=== PATIENT | female | born 1970 | race Caucasian/White ===

== ENCOUNTER 2017-01-15 07:34 | Emergency (ER) | payer BC, OTHER ==
[2017-01-15] MEDS ORDERED: Aspirin Low Dose CHEW TAB* 81 MG PO ONE (07:47)
[2017-01-15 07:49] VITALS: BP 151/97
--- NOTE | 2017-01-15 07:59 | UC ---
Remi Holley Benjamin, scribed for Ernesto Fields MD on 01/15/17 at 0753 . Cardiac HPI - HPI Summary HPI Summary: 46yo female c/o pain in left elbow that radiates down her arm, hand, as well as sandip in left chest and left shoulder blade. Rates the discomfort as 8 out of 10 , and the pt describes tingling sensation in her arm and feeling jittery. Pt felt dizzy and like passing out to drive all the way to the ED, so came to instead. - History of Current Complaint Chief Complaint: UCChestPain Stated Complaint: L ARM TINGLING, CHEST PAIN Time Seen by Provider: 01/15/17 07:41 Hx Obtained From: Patient Onset/Duration: Sudden Onset, Lasting Hours, Still Present Timing: Constant Initial Severity: Moderate Current Severity: Moderate Pain Intensity: 8 Chest Pain Location: Upper Sternal Character: Dull/Aching - left arm, Pressure/Squeezing - upper chest Aggravating: Nothing Alleviating: Nothing Associated Signs & Symptoms: Positive: Tingling - Leftarm, Dizziness, Syncope - Allergy/Home Medications Allergies/Adverse Reactions: Allergies Allergy/AdvReac Type Severity Reaction Status Date / Time Penicillins Allergy Itching Verified 01/15/17 07:49 PMH/Surg Hx/FS Hx/Imm Hx Endocrine History Of: Denies: Diabetes, Thyroid Disease Cardiovascular History Of: Denies: Cardiac Disorders, Hypertension, Pacemaker/ICD Respiratory History Of: Reports: Asthma Denies: COPD GI/ History Of: Denies: Ulcer Cancer History Of: Denies: Breast Cancer - Surgical History Surgical History: Yes Surgery Procedure, Year, and Place: [facility]. APPENDIX. venoplasty in the lower legs - Family History Known Family History: Positive: Cardiac Disease, Diabetes - Social History Alcohol Use: Daily Alcohol Amount: wine Substance Use Type: None Smoking Status (MU): Former Smoker Review of Systems Constitutional: Negative Skin: Negative Eyes: Negative ENT: Negative Respiratory: Negative Cardiovascular: Chest Pain Gastrointestinal: Negative Genitourinary: Negative Motor: Negative Neurovascular: Other - tingling in left arm Musculoskeletal: Negative Neurological: Negative Psychological: Negative All Other Systems Reviewed And Are Negative: Yes Physical Exam Triage Information Reviewed: Yes Appearance: Well-Appearing, No Pain Distress, Well-Nourished Vital Signs: Initial Vital Signs Temp 98.1 F 01/15/17 07:44 Pulse 93 05/04/17 07:44 Resp 18 01/15/17 07:44 BP 151/97 01/15/17 07:44 Pulse Ox 100 01/15/17 07:44 ENT: Positive: Normal ENT inspection Respiratory: Positive: Chest non-tender, Lungs clear, Normal breath sounds Cardiovascular: Positive: RRR, No Murmur Abdomen Description: Positive: Nontender Musculoskeletal: Positive: ROM Intact, No Edema Neurological: Positive: Alert Psychological Exam: Normal Psychological: Positive: Age Appropriate Behavior Skin Exam: Normal Diagnostics - EKG Cardiac Rate: NL ST Segment: Normal - no STEMI - Assessment/Plan Course Of Treatment: 46 yr old female with CP, dizziness. She will go to [facility] as she requests. Dr Duncan given report [facility] - Differential Diagnoses - Chest Pain Differential Diagnosis/HQI/PQRI: ACS - Clinical Impression Provider Diagnoses: Chest pain - Physician Notifications Discussed Patient Care With: Dr Duncan Time Discussed With Above Provider: 07:50 Discharge - Discharge Plan Condition: Good Disposition: TRANS HIGHER LVL OF CARE FAC The documentation as recorded by the Remi luis Benjamin accurately reflects the service I personally performed and the decisions made by Diamond garcia Walter, MD.
[2017-01-15] MEDS ORDERED: fentaNYL* 50 MCG/ML 2 ML VIAL (100 MCG VIAL) ONE (08:31)
[2017-01-15] MEDS ORDERED: nitroGLYCERIN DRIP* 250 ML ONE (08:32)
[2017-01-15] MEDS ORDERED: VERAPAMIL 2.5 MG/ML 4 ML VIAL ONE (08:32)
[2017-01-15] MEDS ORDERED: Heparin 2 UNITS/ML IVPREMIX* 2,000 ML IV ONE (08:32)
[2017-01-15] MEDS ORDERED: Iohexol 350 (CONTRAST) 200 ML MDV IV ONE (08:32)
[2017-01-15] MEDS ORDERED: Lidocaine 1% INJ* 10 MG/ML 30 ML SDV ONE (08:32)
[2017-01-15] MEDS ORDERED: Heparin(*) 1000 UNIT/ML 10 ML VIAL CATH LAB IV ONE (08:32)
[2017-01-15] MEDS ORDERED: Midazolam* 1 MG/ML 5 ML VIAL (5 MG) ONE (08:32)
[2017-01-15] MEDS ORDERED: Ticagrelor* 90 MG TAB PO ONE (09:13)
== END 2017-01-15 08:15 | disposition short-term general hospital (02) ==
LOC: UCEAST 07:34
DX: R07.89 Other chest pain (principal); R42 Dizziness and giddiness; M25.522 Pain in left elbow; R20.2 Paresthesia of skin; J45.909 Unspecified asthma, uncomplicated; Z88.0 Allergy status to penicillin; Z87.891 Personal history of nicotine dependence
CPT/HCPCS: 93005; 99213; A9270-GY; G0463; J1644; J2001; J2250; J3010

== ENCOUNTER 2017-01-15 08:28 | Inpatient (IN) | payer BC, OTHER ==
[2017-01-15] MEDS ORDERED: Metoprolol Tartrate TAB* 25 MG PO ONE (08:36)
[2017-01-15 08:43] LABS: Hematocrit 41 % (35-47); Hemoglobin 13.7 g/dl (12.0-16.0); Mean Corpuscular HGB Conc 33 g/dl (31-36); Mean Corpuscular Hemoglobin 30 pg (27-31); Mean Corpuscular Volume 90 fL (80-97); Mean Platelet Volume 8 um3 (7.4-10.4); Red Blood Count 4.56 10^6/ul (4.0-5.4); Red Cell Distribution Width 13 % (10.5-15); White Blood Count 7.3 10^3/ul (3.5-10.8)
[2017-01-15] MEDS ORDERED: Heparin VIAL(*) 5000 UNITS/ML VIAL (FIVE THOUSAND) IV SCH (09:00)
[2017-01-15 09:01] LABS: Albumin 4.3 g/dL (3.2-5.2); BUN/Creatinine Ratio 16.1 (8-20); Calcium 9.2 mg/dL (8.6-10.3); EGFR African American 89.4 (>60); EGFR Non-African American 69.5 (>60); Globulin 2.5 g/dL (2-4); Potassium 3.4 mmol/L (3.5-5.0); Total Bilirubin 1.1 mg/dL (0.2-1.0); Total Protein 6.8 g/dL (6.4-8.9)
[2017-01-15 09:04] LABS: Troponin I 1.31 ng/mL (<0.04)
[2017-01-15] MEDS ORDERED: Metoprolol Tartrate IV* 1 MG/ML 5 ML VIAL ONE (09:29)
[2017-01-15] MEDS ORDERED: Nitroglycerin TAB 0.4 MG* 0.4 MG TAB SL PRN (09:51)
[2017-01-15] MEDS ORDERED: NS 0.9% 1000 ML* 1,000 ML IV SCH (10:00)
[2017-01-15] MEDS: Metoprolol Tartrate TAB* 25 MG PO SCH ×3 (11:36→22:01)
[2017-01-15 13:45] LABS: HDL Cholesterol 61.9 mg/dL
[2017-01-15] MEDS ORDERED: Potassium Chlor TAB* 20 MEQ TAB.ER PO ONE (14:34)
[2017-01-15] MEDS: Acetaminophen TAB* 325 MG PO PRN (14:42)
--- NOTE | 2017-01-15 16:34 | HP ---
HISTORY AND PHYSICAL: DATE OF ADMISSION: 01/15/17 PRIMARY CARE PHYSICIAN: Dr. Saucedo. HISTORY OF PRESENT ILLNESS: A 46-year-old woman presenting to the ER with acute inferior ST-elevation infarct with symptom onset 0630 hours. She has no previous cardiac history. Three days ago, she had about an hour of the same kind of right arm discomfort at rest, which resolved subsequently. She has a history of a previous right elbow injury. This morning at 0630 hours, the pain recurred and worsened. She called EMS, EKG en route at [address] elevation in V3, V4, V5 with hyperacute T-waves as well as in II, III, and aVF, as well as PVCs. She therefore had apical injury. She has not had heart failure symptoms, palpitations, or syncope. She works out fairly regularly, but does not do a 30-minute aerobic workout at a time. She has no history of hypertension, diabetes, family history of premature coronary disease, or hyperlipidemia. PAST MEDICAL HISTORY: History of asthma. PREHOSPITAL MEDICATIONS: 1. Ventolin inhaler p.r.n. 2. Imitrex. 3. Naprosyn 500 b.i.d. p.r.n. 4. Sarah. 5. Albuterol. ALLERGIES: PENICILLIN. FAMILY HISTORY: Grandmother had heart disease in her 60s, no family history of early premature coronary disease. 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 She is . REVIEW OF SYSTEMS: General: No weight loss. No fevers. She is active. [employer]: No history of TIA or CVA. GI: No peptic ulcer disease or bleeding. Circulatory: No claudication. Remainder of 14-point review all negative. PHYSICAL EXAMINATION She was complaining of moderate arm discomfort, was not in distress. Her presenting BP 151/97, heart rate in the 90s. Her lungs were clear to percussion and auscultation. Neck: JVP and carotids normal. No bruits. HEENT : Normal without xanthelasma, scleral injection, or jaundice. EOMs normal. Cranial nerves grossly intact. Cardiac Exam: [place] and RV not palpable, normal heart sounds, no gallop, no murmur, no rub. Abdomen: Soft, nontender. Normal bowel sounds. No bruit. Aorta not palpable. Femoral pulses 2+. Radial and pedal pulses normal. No cyanosis, clubbing, or edema. Skin: Warm and perfused. Psych: Oriented and appropriate. Neuro: Grossly physiologic. DIAGNOSTIC STUDIES/LAB DATA: EKG as above. CBC normal, potassium low at 3.4, random blood sugar 106, SGOT slightly increased at 47 with normal SGPT and alkaline phosphatase. CPK 641 with 21.6 MB, troponin 1.31. BNP normal at 48. Cholesterol 180, triglycerides 70, LDL 104, HDL 61.9. IMPRESSION: 1. Inferoapical ST elevation infarct. She underwent emergent catheterization. Killip class 1, she has minimal cardiac risk factors. 2. History of asthma. CC: Dr. Saucedo * [id number]/[facility] #: [id number] [facility] SERVIC[facility]ario
[2017-01-15] MEDS: Atorvastatin* 80 MG TAB PO SCH (17:46)
[2017-01-15] MEDS: Ticagrelor* 90 MG TAB PO SCH (22:02)
[2017-01-16] MEDS: Acetaminophen TAB* 325 MG PO PRN ×2 (02:21→09:36)
[2017-01-16] MEDS: Metoprolol Tartrate TAB* 25 MG PO SCH ×2 (04:58→10:25)
[2017-01-16 05:30] LABS: BUN/Creatinine Ratio 13.2 (8-20); Calcium 8.6 mg/dL (8.6-10.3); EGFR African American 84.9 (>60); Potassium 3.5 mmol/L (3.5-5.0)
[2017-01-16] MEDS: Ticagrelor* 90 MG TAB PO SCH ×2 (09:37→21:11)
[2017-01-16] MEDS: Aspirin Low Dose CHEW TAB* 81 MG PO SCH (09:37)
[2017-01-16] MEDS: Atorvastatin* 80 MG TAB PO SCH (17:17)
[2017-01-16] MEDS: Metoprolol Tartrate TAB* 50 mg PO SCH (21:11)
--- NOTE | 2017-01-16 22:30 | CATH ---
CC: Dr. Saucedo; Dr. Quinones STENT REPORT: DATE OF PROCEDURE: PRIMARY: Dr. Saucedo. PROCEDURES: Right radial artery access, bilateral selective coronary cineangiography, left heart ca theterization, left ventriculography, stent placement, RPDA 2.25 x 15 Xience drug-eluting stent post dilated with a 2.25 x 15 noncompliant balloon. HISTORY: A 46-year-old woman without traditional coronary risk factors presenting with acute infraa pical ST elevation infarct. PROCEDURE ACCESS: Right radial artery, sheath 6-F slender. MEDICATIONS: 1. Subcu lidocaine. 2. IV Versed. 3. IV fentanyl. 4. Heparin 3000 units. 5. Verapamil 3 mg. 6. Nitroglycerin 300 mcg. 7. Heparin 3000 units IV. 8. Lopressor 5 mg IV. 9. Brilinta 180 mg p.o. loading dose. 10. Intracoronary nitroglycerin 200 mcg. DIAGNOSTIC CATHETER: 5F TIG4, 5F pigtail. Guiding catheter RCA 6F Ikari right 1, wire 14 BMW used to deploy a 2.25 x 15 Xience drug-eluting st ent mid PDA, 14 atmospheres 30 seconds, post dilated with a 2.25 x 15 noncompliant balloon 20 atmosp heres for 30 seconds. LV gram was then performed. HEMODYNAMICS: Initial BP 138/87, LV 118/5, no aortic valve gradient on pullback. ANGIOGRAPHY: RCA: The RCA is large, has a superior small Allen crook, the RCA is smooth, the PDA is large, the distal third to mid PDA junction has a near total occlusion with apical slow flow. P DA is followed by several small posterolaterals. Left main: The left main is normal, smooth, has no stenosis. LAD: The LAD is moderate, ends before the apex, is somewhat tortuous, supplies small first diagonal , and two small mid diagonals, the LAD has no stenosis. Circumflex: The circumflex is moderate, not dominant, retroflexed at its origin, with moderate reji inal, and ends with a small posterolateral. The circumflex has no stenosis. After RPDA stent placement and postdilatation, there is no residual stenosis, flow is KARRI-3. There is a normal myocardial blush. LV gram: There is localized minor apical hypokinesis, estimated LVEF 60%. CONCLUSION: 1. Single vessel disease RPDA in a young woman without traditional risk factors for coronary artery disease. No other angiographic atherosclerosis. 2. Normal LV systolic function with mild regional wall motion abnormality. 3. Normal left-sided hemodynamics. 4. Successful right radial artery access. [id number]/[facility] #: [id number]
[2017-01-17] MEDS: Aspirin Low Dose CHEW TAB* 81 MG PO SCH (08:35)
[2017-01-17] MEDS: Metoprolol Tartrate TAB* 50 mg PO SCH (08:35)
[2017-01-17] MEDS ORDERED: Prasugrel (NF) 10 MG PO SCH (09:00)
[2017-01-17] MEDS: Acetaminophen TAB* 325 MG PO PRN (09:54)
[2017-01-17 11:41] VITALS: BP 113/84
--- NOTE | 2017-01-18 03:32 | DS ---
CC: Doni Saucedo MD; Mavis Quinones MD DISCHARGE SUMMARY: DATE OF ADMISSION: 01/15/17 DATE OF DISCHARGE: 01/17/17 PRIMARY CARE PHYSICIAN: Doni Saucedo MD DISCHARGE DIAGNOSES: 1. Inferoapical ST elevation infarct. 2. Asthma. CONDITION ON DISCHARGE: Stable. PROCEDURE: Cardiac catheterization, stent placement, RPDA, 01/15/17 right radial access by Dr. Palma ms, 2.25 x 15, MICHOACANO telemetry. FOLLOWUP: With Dr. Quinones next week, with Dr. Saucedo as previously. To discuss with Dr. Saucedo a lternatives to her meds that have potential vasoconstrictor properties. ACTIVITY: No strenuous exertion for 3 days. WOUND CARE: Shower only for 3 days. DISCHARGE MEDICATIONS: 1. Aspirin 81 mg daily. 2. Lipitor 80 mg daily. 3. Lopressor 50 mg b.i.d. 4. Nitroglycerin 0.4 sublingual p.r.n. 5. Effient 10 mg daily. HISTORY: See H and P. LABORATORY DATA: Followup CBC on 01/15/17 remained normal; chemistries on 01/16/17 normal; electrol ytes, creatinine 0.91, random blood sugar 102. Her CPK-MB peaked at 55.1 consistent with a small in farct. BNP was normal at 48. Her CRP was elevated at 3.15 on no statin. Her admission lipids incl uded LDL of 105 with HDL 61, triglycerides 70, and total cholesterol 180. EKG post revascularizatio n 01/17/17 shows inferior and anterior T-wave changes consistent with her apical infarct with very s mall preserved inferior wall, R-wave consistent with a non- transmural infarct. HOSPITAL COURSE: She presented with an acute inferoapical ST elevation infarct, emergent catheteriz ation revealed a culprit PDA high-grade stenosis, which was stented as above. LV function was preethi l with a small apical wall motion abnormality with hypokinesis. Her subsequent hospital course is u ncomplicated without right radial issues, heart failure, chest pain, or arrhythmias. She has ambula michael, she is on dual-antiplatelet therapy, high-dose potent statin, even though admission lipids were fairly unremarkable. She had an infarct even though she lacks to additional risk factors. She is fully ambulatory, clinically stable. She will be followed as an outpatient. [id number]/[facility] #: [id number]
== END 2017-01-17 13:05 | disposition home or self-care (01) | DRG 174 ==
LOC: ED 08:28 → ICU 08:40 → MEDTELE 01-16 15:02
PROVIDERS: ADMIT Internal Medicine Cardiovascular Disease; ATTEND Internal Medicine Cardiovascular Disease
PROC: B2151ZZ Fluoroscopy of Left Heart using Low Osmolar Contrast (ICD-10-PCS; 2017-01-15)
PROC: 4A023N7 Measurement of Cardiac Sampling and Pressure, Left Heart, Percutaneous Approach (ICD-10-PCS; 2017-01-15)
PROC: 027034Z Dilation of Coronary Artery, One Artery with Drug-eluting Intraluminal Device, Percutaneous Approach (ICD-10-PCS; 2017-01-15)
PROC: B2111ZZ Fluoroscopy of Multiple Coronary Arteries using Low Osmolar Contrast (ICD-10-PCS; principal; 2017-01-15 08:30)
DX: I21.19 ST elevation (STEMI) myocardial infarction involving other coronary artery of inferior wall (principal); I25.10 Atherosclerotic heart disease of native coronary artery without angina pectoris; J45.909 Unspecified asthma, uncomplicated; Z88.0 Allergy status to penicillin; Z82.49 Family history of ischemic heart disease and other diseases of the circulatory system; Z79.82 Long term (current) use of aspirin; Z79.01 Long term (current) use of anticoagulants
CPT/HCPCS: 36415; 80048; 80053; 80061; 82550; 82553; 83605; 83721; 83880; 84484; 85025; 85610; 85730; 86141; 87641; 93005; 99213; A9270-GY; C1725; C1769; C1876; C9606-RC; G0463; J1644; J2001; J2250; J3010

== ENCOUNTER → 2017-02-11 11:10 | Emergency (ER) | payer BC, OTHER ==
[~2017-02-11 11:10] MED LIST: Iohexol 350* (CONTRAST) 500 ML MDV IV ONE; Morphine INJ* 2 MG/ML 1 ML SYRINGE IV ONE; Nitroglycerin TAB 0.4 MG* 0.4 MG TAB SL ONE
[2017-02-11 11:45] LABS: Hematocrit 34 % (35-47); Hemoglobin 11.7 g/dl (12.0-16.0); Mean Corpuscular HGB Conc 34 g/dl (31-36); Mean Corpuscular Hemoglobin 31 pg (27-31); Mean Corpuscular Volume 90 fL (80-97); Mean Platelet Volume 9 um3 (7.4-10.4); Red Blood Count 3.77 10^6/ul (4.0-5.4); Red Cell Distribution Width 13 % (10.5-15); White Blood Count 6.9 10^3/ul (3.5-10.8)
[2017-02-11 12:00] LABS: Albumin 3.8 g/dL (3.2-5.2); BUN/Creatinine Ratio 17.9 (8-20); Calcium 8.3 mg/dL (8.6-10.3); EGFR African American 93.1 (>60); EGFR Non-African American 72.4 (>60); Globulin 2.3 g/dL (2-4); Magnesium 1.8 mg/dL (1.9-2.7); Potassium 3.7 mmol/L (3.5-5.0); Total Bilirubin 0.9 mg/dL (0.2-1.0); Total Protein 6.1 g/dL (6.4-8.9)
[2017-02-11 12:02] LABS: Troponin I 0.01 ng/mL (<0.04)
--- NOTE | 2017-02-11 12:09 | RAD ---
HISTORY: Chest pain COMPARISONS: October 22, 2016 VIEWS:1: Single frontal portable view of the chest at 11:55 AM FINDINGS: LINES AND TUBES: None. CARDIOMEDIASTINAL SILHOUETTE: The cardiomediastinal silhouette is normal for portable technique. PLEURA: The costophrenic angles are sharp. No pleural abnormalities are noted. LUNG PARENCHYMA: The lungs are clear. ABDOMEN: The upper abdomen is clear. There is no subphrenic gas. BONES AND SOFT TISSUES: No bone or soft tissue abnormalities are noted. IMPRESSION: NO ACTIVE CARDIOPULMONARY DISEASE.
[2017-02-11 12:28] LABS: T4 7.56 mcg/mL (6.09-12.23)
[2017-02-11 12:29] LABS: TSH (Thyroid Stimulating Horm) 2.27 mcIU/mL (0.34-5.60)
--- NOTE | 2017-02-11 13:01 | RAD ---
INDICATION: Shortness of breath. COMPARISON: Comparison is made with a prior CT angiogram of the chest from May 05, 2013 and a prior chest x-ray study from February 11, 2017. TECHNIQUE: A CT angiogram of the chest was performed with intravenous following intravenous injection of 73 ml of Omnipaque 350 nonionic contrast. Contiguous axial sections were obtained from the lung apices through the lung bases. Images were reconstructed in the coronal and sagittal planes. FINDINGS: There is relatively homogeneous opacification of the pulmonary arteries. No intraluminal filling defect or pulmonary embolism is seen. The heart is within normal limits in size. No pericardial effusion is present. The thoracic aorta is normal in caliber and demonstrates homogeneous contrast opacification. No significant enlarged mediastinal or hilar lymph nodes are seen. There is mild dependent bilateral lower lobe infiltrates most consistent with atelectasis. The lungs are otherwise clear. No pleural effusion is seen. No acute finding is seen on images of the upper abdomen. No significant focal osseous abnormality is seen. IMPRESSION: NO EVIDENCE FOR PULMONARY EMBOLISM.
[2017-02-11 14:04] LABS: C Reactive Protein 2.68 mg/L (< 5.00)
[2017-02-11 16:17] VITALS: BP 119/61
--- NOTE | 2017-02-11 19:03 | ED ---
Jose Raul Holley Billy, scribed for Ernesto Mitchell MD on 02/11/17 at 1138 . HPI Chest Pain - HPI Summary HPI Summary: This patient is a 46 year-old female coming to [facility] for evaluation of a throbbing, aching chest pain on the left anterior and lateral regions of her chest since 09 this morning. The pain radiates to the back. Patient recently had a stent placed for treatment of a STEMI on 01/15/17. Today's symptoms are described to be different in character and less in severity to her pain at that time. She states that over the last week, she has had intermittent tightening in the chest, and has had intermittent shortness of breath and palpitations. She also reports tightening in her calves. Positive nausea without vomiting. She has also been resting and more sedentary than usual. 2x ASA and 2x NTG given by EMS [employer] with improvement. - History of Current Complaint Chief Complaint: EDChestPainROMI Time Seen by Provider: 02/11/17 11:27 Hx Obtained From: Patient Onset/Duration: Started Hours Ago Time of Onset: 09:45 Timing: Intermittent Initial Severity: Moderate Current Severity: Moderate Pain Intensity: 6 Pain Scale Used: 0-10 Numeric Chest Pain Location: Left Anterior, Left Lateral Chest Pain Radiates: Yes Chest Pain Radiates To:: Back Character: Other: - Throbbing, aching Aggravating Factor(s): Nothing Alleviating Factor(s): Nothing Associated Signs and Symptoms: Positive: Chest Pain, Shortness of Breath, Nausea , Palpitations, Calf Pain/Swelling. Negative: Vomiting - Additional Pertinent History Primary Care Physician: [id number] - Allergy/Home Medications Allergies/Adverse Reactions: Allergies Allergy/AdvReac Type Severity Reaction Status Date / Time Penicillins Allergy Itching Verified 01/15/17 07:49 Home Medications: Home Medications Albuterol HFA INHALER* [Ventolin HFA Inhaler*] 1 puff INH Q6H PRN 02/11/17 [ History Confirmed 02/11/17] Ascorbic Acid [Vitamin C/Trinity Hips Tr] 1,000 mg PO DAILY 02/11/17 [History Confirmed 02/11/17] Cholecalciferol [Vitamin D3 Ultra Strength] 5,000 unit PO QPM 02/11/17 [History Confirmed 02/11/17] Cranberry-Vitamin C-Vitamin E [Cranberry Plus Vitamin C] 1 cap PO BID 02/11/17 [ History Confirmed 02/11/17] Fluticasone Furoate-Vilanterol [Breo Ellipta 200-25 Mcg/INH] 1 puff INH DAILY [History Confirmed 02/11/17] Mometasone NASAL (NF) [Nasonex (NF)] 2 spray BOTH NARES QAM 02/11/17 [History Confirmed 02/11/17] Montelukast Sodium TAB* [Singulair TAB*] 10 mg PO QPM 02/11/17 [History Confirmed 02/11/17] Prasugrel (NF) [Effient (NF)] 10 mg PO QAM 02/11/17 [History Confirmed 02/11/17] PMH/Surg Hx/FS Hx/Imm Hx Endocrine/Hematology History: Denies: Hx Diabetes, Hx Thyroid Disease Cardiovascular History: Denies: Hx Hypertension, Hx Pacemaker/ICD Respiratory History: Reports: Hx Asthma, Other Respiratory Problems/Disorders - HX OF PNEUMONIA Denies: Hx Chronic Obstructive Pulmonary Disease (COPD) GI History: Denies: Hx Ulcer Musculoskeletal History: Reports: Hx Back Problems, Other Musculoskeletal History - LEFT ELBOW PAIN Sensory History: Reports: Hx Contacts or Glasses - READERS Denies: Hx Hearing Aid Opthamlomology History: Reports: Hx Contacts or Glasses - READERS Neurological History: Reports: Hx Migraine - SINCE TEENAGER Psychiatric History: Denies: Hx Panic Disorder - Surgical History Surgery Procedure, Year, and Place: LASIK. APPENDIX. venoplasty in the lower legs - Immunization History Date of Tetanus Vaccine: Up to date Date of Influenza Vaccine: Fall 2011 Infectious Disease History: No Infectious Disease History: Denies: Hx Clostridium Difficile, Hx Hepatitis, Hx Human Immunodeficiency Virus (HIV), Hx of Known/Suspected MRSA, Hx Shingles, Hx Tuberculosis, Hx Known/ Suspected VRE, Hx Known/Suspected VRSA, History Other Infectious Disease, Traveled Outside the [place] in Last 30 Days - Family History Known Family History: Positive: Cardiac Disease, Diabetes, Other - breast CA - Social History Alcohol Use: Daily Alcohol Amount: wine Substance Use Type: Reports: None Smoking Status (MU): Former Smoker Have You Smoked in the Last Year: No Review of Systems Positive: Palpitations, Chest Pain Positive: Shortness Of Breath Positive: Nausea. Negative: Vomiting Positive: Myalgia All Other Systems Reviewed And Are Negative: Yes Physical Exam - Summary Physical Exam Summary: VITAL SIGNS: Reviewed. GENERAL: Patient is a well-developed and nourished male who is lying comfortable in the stretcher. Patient is not in any acute respiratory distress. HEAD AND FACE: No signs of trauma. No ecchymosis, hematomas or skull depressions. No sinus tenderness. EYES: PERRLA, EOMI x 2, No injected conjunctiva, no nystagmus. EARS: Hearing grossly intact. Ear canals and tympanic membranes are within normal limits. MOUTH: Oropharynx within normal limits. NECK: Supple, trachea is midline, no adenopathy, no JVD, no carotid bruit, no c- spine tenderness, neck with full ROM. CHEST: Symmetric, no tenderness at palpation LUNGS: Clear to auscultation bilaterally. No wheezing or crackles. CVS: Regular rate and rhythm, S1 and S2 present, no murmurs or gallops appreciated. ABDOMEN: Soft, non-tender. No signs of distention. No rebound no guarding, and no masses palpated. Bowel sounds are normal. EXTREMITIES: FROM in all major joints, no edema, no cyanosis or clubbing. NEURO: Alert and oriented x 3. No acute neurological deficits. Speech is normal and follows commands. SKIN: Dry and warm. Pale. Triage Information Reviewed: Yes Vital Signs On Initial Exam: Initial Vitals Temp Pulse Resp BP Pulse Ox 98.4 F 74 19 120/72 100 02/11/17 11:20 02/11/17 11:20 02/11/17 11:20 02/11/17 11:20 02/11/17 11:20 Vital Signs Reviewed: Yes Diagnostics - Vital Signs Vital Signs Temp Pulse Resp BP Pulse Ox 02/11/17 11:20 98.4 F 74 19 120/72 100 - Laboratory Result Diagrams: 02/11/17 11:30 02/11/17 11:30 Lab Statement: Any lab studies that have been ordered have been reviewed, and results considered in the medical decision making process. - Radiology CXR Xray Interpretation: No Acute Changes Radiology Interpretation Completed By: Radiologist - CT CTA chest CT Interpretation: No Acute Changes CT Interpretation Completed By: Radiologist - EKG 1119 EKG Interpretation: NSR 61 bpm, no STEMI EKG Comparison: No Significant Change - Compared to 01/17/17 Chest Pain Course/Dx - Course Assessment/Plan: This patient is a 46 year-old female coming to [facility] for evaluation of a throbbing, aching chest pain on the left anterior and lateral regions of her chest since 09 this morning. The pain radiates to the back. Patient recently had a stent placed for treatment of a STEMI on 01/15/17. Today's symptoms are described to be different in character and less in severity to her pain at that time. She states that over the last week, she has had intermittent tightening in the chest, and has had intermittent shortness of breath and palpitations. She also reports tightening in her calves. Positive nausea without vomiting. She has also been resting and more sedentary than usual. 2x ASA and 2x NTG given by EMS [employer] with improvement. Test results WNL except for Hgb of 11.7, Hct of 34. Glucose is 101. Troponin is 0.01. Second troponin 4 hours later is 0.01. The patient reports that she recently had a STEMI for which she had a cardiac cath and stent placement. Even though the patient is taking bloodthinners, she reports that she has been having calf pain and now SOB and chest pain. Therefore I am somewhat concerned for PE. The CTA chest shows no PE. The patient was given morphine for pain and these symptoms slightly improved. She reports that the pain is 1/10 at this time. I also discussed the case and EKG findings with Dr. Quinones who did the cardiac cath, and after he reviewed the EKG and the bloodwork, he does not think this is cardiac in etiology. 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 She was instructed to return to the ED if she develops any other chest pain, SOB, nausea, vomiting, or diaphoresis. She understands and agrees. She is hemodynamically stable, A&Ox3. - Diagnoses Provider Diagnoses: Atypical chest pain Discharge - Discharge Plan Condition: Stable Disposition: HOME Prescriptions: HYDROcodone/ACETAMIN 5-325 MG* [[place] 5-325 TAB*] 1 tab PO Q6H PRN #10 tab MDD max 4 tabs / day PRN Reason: Pain Patient Education Materials: Noncardiac Chest Pain (ED) Referrals: Doni Saucedo MD [Primary Care Provider] - Consult Consult: Dr. Tovar (hospitalist) at 1344: patient care discussed. The documentation as recorded by the Jose Raul luis Billy accurately reflects the service I personally performed and the decisions made by me, Ernesto Mitchell MD.
== END | disposition home or self-care (01) ==
LOC: ED 11:10
DX: R07.89 Other chest pain (principal); R06.02 Shortness of breath; R11.0 Nausea; R00.2 Palpitations
CPT/HCPCS: 36415; 71010; 71275; 80053; 82553; 83605; 83735; 83880; 84436; 84443; 84484; 85025; 85730; 86140; 93005; 99284; Q9967

== ENCOUNTER 2018-02-27 15:28 | Emergency (ER) | payer BC, OTHER ==
--- NOTE | 2018-02-27 15:29 | UC ---
Cardiac HPI - HPI Summary HPI Summary: 47 yo female presents with chest pain. She tells me that this morning she woke with chest pain that has been more bothersome in the last hour. Within the last hour her pain has begun to radiate to the left chest, shoulder, and arm. She has a significant cardiac history - LA one year ago and this feels the same. Is followed by garland Quinones. She took her Effient and 81mg ASA this morning. - History of Current Complaint Stated Complaint: CHEST PAIN, L ARM NUMB Time Seen by Provider: 02/27/18 15:28 Hx Obtained From: Patient Hx Last Menstrual Period: 2 WEEKS AGO; PARTNER HAS HAD A VASECTOMY Onset/Duration: Sudden Onset Initial Severity: Mild Current Severity: Moderate Pain Intensity: 5 - Allergy/Home Medications Allergies/Adverse Reactions: Allergies Allergy/AdvReac Type Severity Reaction Status Date / Time Penicillins Allergy Unknown Verified 02/27/18 15:40 Reaction Details PMH/Surg Hx/FS Hx/Imm Hx - Additional Past Medical History Additional PMH: LA - Surgical History Surgical History: Yes Surgery Procedure, Year, and Place: LASIK. APPENDIX. venoplasty in the lower legs - Family History Known Family History: Positive: Cardiac Disease, Diabetes, Other - breast CA - Social History Occupation: Employed Full-time Lives: With Family Alcohol Use: Daily Alcohol Amount: wine Substance Use Type: None Smoking Status (MU): Former Smoker Have You Smoked in the Last Year: No - Immunization History Most Recent Influenza Vaccination: 07/2016 Most Recent Pneumonia Vaccination: NEVER Review of Systems Constitutional: Negative Skin: Negative Eyes: Negative ENT: Negative Respiratory: Negative Cardiovascular: Chest Pain Gastrointestinal: Negative Genitourinary: Negative Motor: Negative Neurovascular: Negative Musculoskeletal: Negative Neurological: Negative Psychological: Negative All Other Systems Reviewed And Are Negative: Yes Physical Exam - Summary Physical Exam Summary: GENERAL: NAD. WDWN. SKIN: No rashes, sores, lesions, or open wounds. NECK: Supple. Nontender. No lymphadenopathy. CHEST: CTAB. No r/r/w. No accessory muscle use. Breathing comfortably and in no distress. CV: RRR. Pulses intact. Brisk cap refill. ABDOMEN: Soft. NTTP. No distention or guarding. No organomegaly. No CVA tenderness. Bowel sounds present NEURO: Alert. CN II-XII grossly intact. PSYCH: Age appropriate behavior. Triage Information Reviewed: Yes Vital Signs: Vital Signs: Temp Pulse Resp BP Pulse Ox 98.5 F 103 16 148/86 100 02/27/18 15:37 02/27/18 15:43 02/27/18 15:43 02/27/18 15:43 02/27/18 15:43 - Assessment/Plan Course Of Treatment: EK bpm with Minimal ST depressions in II and V2-V6. Pt was notified of these new findings and agreed to be transferred via ambulance to the ED. 2L O2 via NC and saline lock started. 243mg chewable ASA given as she had 81mg ASA this morning. Report to Dr. Isaacs at 0671. Pt left via ambulance in stable condition. - Clinical Impression Provider Diagnoses: Chest pain. ST depressions EKG Discharge - Sign-Out/Discharge Documenting (check all that apply): Discharge/Admit/Transfer - Discharge Plan Condition: Stable Disposition: TRANS HIGHER LVL OF CARE FAC Referrals: Alysa Nelson MD [Primary Care Provider] - - Billing Disposition and Condition Condition: STABLE Disposition: Trans Higher Lvl of Care Fac
[2018-02-27] MEDS ORDERED: Aspirin 81 mg CHEW TAB* 81 MG TAB.CHEW PO ONE (15:42)
[2018-02-27 15:58] VITALS: BP 148/86
== END 2018-02-27 16:05 | disposition short-term general hospital (02) ==
LOC: UCEAST 15:28
DX: R07.89 Other chest pain (principal); I21.3 ST elevation (STEMI) myocardial infarction of unspecified site; I25.2 Old myocardial infarction; Z88.0 Allergy status to penicillin; Z87.891 Personal history of nicotine dependence; Z82.49 Family history of ischemic heart disease and other diseases of the circulatory system; Z83.3 Family history of diabetes mellitus; Z80.3 Family history of malignant neoplasm of breast
CPT/HCPCS: 93005; 99213; A9270-GY; G0463

== ENCOUNTER 2018-02-27 16:17 | Inpatient (IN) | payer BC, OTHER ==
[2018-02-27] MEDS ORDERED: Morphine VIAL* 4 MG/ML VIAL (1 ml vial) IV ONE (16:33)
[2018-02-27] MEDS ORDERED: Nitroglycerin TAB 0.4 MG* 0.4 MG TAB SL ONE (16:33)
[2018-02-27] MEDS ORDERED: Ondansetron ODT TAB* 4 MG PO ONE (16:33)
[2018-02-27] MEDS: NS 0.9% 1000 ML* 1,000 ML IV SCH (16:46)
[2018-02-27 17:06] LABS: ABS Basophils 0 10^3/ul (0-0.2); ABS Eosinophils 0.2 10^3/ul (0-0.6); ABS Lymphocytes 1.6 10^3/ul (1.0-4.8); ABS Monocytes 0.4 10^3/ul (0-0.8); ABS Neutrophils 4.6 10^3/ul (1.5-7.7); ABS Nucleated RBC 0 10^3/ul; Eosinophil % 2.5 % (0-6); Hematocrit 37 % (35-47); Hemoglobin 12.9 g/dl (12.0-16.0); Lymphocyte % 23.2 % (25-47); Mean Corpuscular HGB Conc 35 g/dl (31-36); Mean Corpuscular Hemoglobin 30 pg (27-31); Mean Corpuscular Volume 88 fL (80-97); Mean Platelet Volume 8.2 um3 (7.4-10.4); Nucleated Red Blood Cells % 0; Platelet Count 234 10^3/ul (150-450); Red Blood Count 4.23 10^6/ul (4.00-5.40); Red Cell Distribution Width 14 % (10.5-15); White Blood Count 6.9 10^3/ul (3.5-10.8)
[2018-02-27 17:16] LABS: INR 0.94 (0.77-1.02)
[2018-02-27 17:24] LABS: EGFR Non-African American 64.9 (>60)
[2018-02-27] MEDS ORDERED: Nitroglycerin 0.4 MG/HR PATCH* (10 MG) TRANSDERM ONE (17:42)
[2018-02-27] MEDS ORDERED: Metoprolol Tartrate IV* 1 MG/ML 5 ML VIAL IV ONE (17:42)
--- NOTE | 2018-02-27 17:42 | RAD ---
HISTORY: Chest pain COMPARISONS: February 11, 2017 VIEWS: 1: frontal portable view of the chest at 4:45 PM FINDINGS: LINES AND TUBES: None. CARDIOMEDIASTINAL SILHOUETTE: The cardiomediastinal silhouette is normal for portable technique. PLEURA: The costophrenic angles are sharp. No pleural abnormalities are noted. LUNG PARENCHYMA: The lungs are clear. ABDOMEN: The upper abdomen is clear. There is no subphrenic gas. BONES AND SOFT TISSUES: No bone or soft tissue abnormalities are noted. IMPRESSION: NO ACTIVE CARDIOPULMONARY DISEASE.
[2018-02-27] MEDS ORDERED: Heparin DRIP 25,000 UNITS(*) 25,000 UNITS/500 ML BAG IV SCH (18:00)
[2018-02-27] MEDS ORDERED: Heparin DRIP 25,000 UNITS(*) 25,000 UNITS/500 ML BAG ONE (18:25)
[2018-02-27] MEDS ORDERED: Heparin VIAL(*) 5000 UNITS/ML VIAL (FIVE THOUSAND) ONE (18:25)
[2018-02-27] MEDS ORDERED: Acetaminophen TAB* 325 MG PO PRN (20:03)
[2018-02-27] MEDS ORDERED: Ondansetron 40 MG VIAL* 2 MG/ML 20 ML VIAL IV PRN (20:03)
[2018-02-27] MEDS ORDERED: Potassium Chloride LIQUID* 20 MEQ PACKET PO ONE (20:08)
[2018-02-27] MEDS: Morphine VIAL* 4 MG/ML VIAL (1 ml vial) IV PRN (22:05)
[2018-02-27] MEDS: Metoprolol Tartrate TAB* 25 MG PO SCH ×2 (22:05→22:52)
[2018-02-27] MEDS: Nitro Patch/OINT Remove PATCH OFF SCH (22:52)
--- NOTE | 2018-02-27 23:03 | ED ---
Huong Holley Rebecca, scribed for Carlo Allen MD on 02/27/18 at 1633 . HPI Chest Pain - HPI Summary HPI Summary: Pt is a 47 y/o F BIBA from [facility] who presents to ED c/o CP. Pain began this morning in the midsternal chest as burning. At onset pain was 7/10, currently it is 3-4/10, predominantly in the left anterior chest. Given NTG by EMS and 3 81 mg ASA by [facility]. Sx alleviated by NTG, aggravated by nothing. 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 Additionally c/o mild nausea , slight palm diaphoresis, bilateral hand tingling, and SOB. Notes chronic bilateral edema for which she is on a diuretic. PMHx FL - her current sx are similar to when she had an FL. Takes Effian (blood thinner) and 81 mg ASA daily. - History of Current Complaint Chief Complaint: EDChestPainROMI Time Seen by Provider: 02/27/18 16:26 Hx Obtained From: Patient Hx Last Menstrual Period: 2 WEEKS AGO; PARTNER HAS HAD A VASECTOMY Onset/Duration: Still Present Initial Severity: Moderate - 7/10 Current Severity: Moderate - 4/10 Pain Intensity: 4 - Currently Pain Scale Used: 0-10 Numeric Chest Pain Location: Mid Sternal - Initially, Left Anterior - Currently Character: Burning Aggravating Factor(s): Nothing Alleviating Factor(s): NTG 123 Associated Signs and Symptoms: Positive: Shortness of Breath, Diaphoresis - palm , Nausea - Additional Pertinent History Primary Care Physician: [id number] - Allergy/Home Medications Allergies/Adverse Reactions: Allergies Allergy/AdvReac Type Severity Reaction Status Date / Time Penicillins Allergy Unknown Verified 02/27/18 15:40 Reaction Details Home Medications: Home Medications Ascorbic Acid TAB* [Vitamin C TAB*] 1,000 mg PO DAILY 02/27/18 [History Confirmed 02/27/18] Hydrochlorothiazide TAB* [Hydrodiuril TAB*] 12.5 - 25 mg PO DAILY PRN 02/27/18 [ History Confirmed 02/27/18] Magnesium Oxide [Magnesium] 400 mg PO DAILY 02/27/18 [History Confirmed 02/27/18 ] PMH/Surg Hx/FS Hx/Imm Hx Endocrine/Hematology History: Denies: Hx Diabetes, Hx Thyroid Disease Cardiovascular History: Reports: Hx Myocardial Infarction Denies: Hx Hypertension, Hx Pacemaker/ICD Respiratory History: Reports: Hx Asthma, Other Respiratory Problems/Disorders - HX OF PNEUMONIA Denies: Hx Chronic Obstructive Pulmonary Disease (COPD) GI History: Denies: Hx Ulcer Musculoskeletal History: Reports: Hx Back Problems, Other Musculoskeletal History - LEFT ELBOW PAIN Sensory History: Reports: Hx Contacts or Glasses - READERS Denies: Hx Hearing Aid Opthamlomology History: Reports: Hx Contacts or Glasses - READERS Neurological History: Reports: Hx Migraine - SINCE TEENAGER Psychiatric History: Denies: Hx Panic Disorder - Cancer History Hx Chemotherapy: No Hx Radiation Therapy: No - Surgical History Surgery Procedure, Year, and Place: LASIK. APPENDIX. venoplasty in the lower legs - Immunization History Date of Tetanus Vaccine: Up to date Date of Influenza Vaccine: Fall 2011 Infectious Disease History: No Infectious Disease History: Denies: Hx Clostridium Difficile, Hx Hepatitis, Hx Human Immunodeficiency Virus (HIV), Hx of Known/Suspected MRSA, Hx Shingles, Hx Tuberculosis, Hx Known/ Suspected VRE, Hx Known/Suspected VRSA, History Other Infectious Disease, Traveled Outside the [place] in Last 30 Days - Family History Known Family History: Positive: Cardiac Disease, Diabetes, Other - breast CA - Social History Alcohol Use: Daily Alcohol Amount: wine Substance Use Type: Reports: None Smoking Status (MU): Former Smoker Have You Smoked in the Last Year: No Review of Systems Positive: Skin Diaphoresis - palms Positive: Chest Pain Positive: Shortness Of Breath Positive: Nausea Positive: Edema - bilateral, Other - L arm pain Neurological: Other - Bilateral hand tingling All Other Systems Reviewed And Are Negative: Yes Physical Exam - Summary Physical Exam Summary: General: well-appearing, no pain distress Skin: warm, color reflects adequate perfusion, dry Head: normal Eyes: EOMI, NASREEN ENT: normal Neck: supple, nontender Respiratory: CTA, breath sounds present Cardiovascular: RRR Abdomen: soft, nontender Bowel: present Musculoskeletal: normal, strength/ROM intact Neurological: sensory/motor intact, A&O x3 Psychological: affect/mood appropriate Triage Information Reviewed: Yes Vital Signs On Initial Exam: Initial Vitals Temp Pulse Resp BP Pulse Ox 98.0 F 103 22 148/56 100 02/27/18 16:17 02/27/18 16:17 02/27/18 16:17 02/27/18 16:17 02/27/18 16:17 Vital Signs Reviewed: Yes Diagnostics - Vital Signs Vital Signs Temp Pulse Resp BP Pulse Ox 02/27/18 16:20 100 02/27/18 16:17 98.0 F 103 22 148/56 100 - Laboratory Lab Results: Lab Results 02/27/18 02/27/18 02/27/18 Range/Units 16:52 16:52 16:52 WBC 6.9 (3.5-10.8) 10^3/ul RBC 4.23 (4.00-5.40) 10^6/ul Hgb 12.9 (12.0-16.0) g/dl Hct 37 (35-47) % MCV 88 (80-97) fL MCH 30 (27-31) pg MCHC 35 (31-36) g/dl RDW 14 (10.5-15) % Plt Count 234 (150-450) 10^3/ul MPV 8.2 (7.4-10.4) um3 Neut % (Auto) 67.5 (38-83) % Lymph % (Auto) 23.2 L (25-47) % Izard % (Auto) 6.1 (0-7) % Eos % (Auto) 2.5 (0-6) % Baso % (Auto) 0.7 (0-2) % Absolute Neuts (auto) 4.6 (1.5-7.7) 10^3/ul Absolute Lymphs (auto) 1.6 (1.0-4.8) 10^3/ul Absolute Monos (auto) 0.4 (0-0.8) 10^3/ul Absolute Eos (auto) 0.2 (0-0.6) 10^3/ul Absolute Basos (auto) 0 (0-0.2) 10^3/ul Absolute Nucleated RBC 0 10^3/ul Nucleated RBC % 0 INR (Anticoag Therapy) 0.94 (0.77-1.02) APTT 30.1 (26.0-36.3) seconds D-Dimer, Quantitative < 200 (Less Than 230) ng/mL Sodium 136 (135-145) mmol/L Potassium 3.2 L (3.5-5.0) mmol/L Chloride 102 (101-111) mmol/L Carbon Dioxide 23 (22-32) mmol/L Anion Gap 11 (2-11) mmol/L BUN 16 (6-24) mg/dL Creatinine 0.92 (0.51-0.95) mg/dL Est GFR ( Amer) 83.4 (>60) Est GFR (Non-Af Amer) 64.9 (>60) BUN/Creatinine Ratio 17.4 (8-20) Glucose 112 H (70-100) mg/dL Lactic Acid (0.5-2.0) mmol/L Calcium 9.7 (8.6-10.3) mg/dL Total Bilirubin 1.20 H (0.2-1.0) mg/dL AST 19 (13-39) U/L ALT 15 (7-52) U/L Alkaline Phosphatase 44 (34-104) U/L Troponin I 0.00 (<0.04) ng/mL C-Reactive Protein 1.07 (< 5.00) mg/L Total Protein 7.1 (6.4-8.9) g/dL Albumin 4.3 (3.2-5.2) g/dL Globulin 2.8 (2-4) g/dL Albumin/Globulin Ratio 1.5 (1-3) Lipase 29 (11.0-82.0) U/L 02/27/18/ Range/Units 16:52 19:13 WBC (3.5-10.8) 10^3/ul RBC (4.00-5.40) 10^6/ul Hgb (12.0-16.0) g/dl Hct (35-47) % MCV (80-97) fL MCH (27-31) pg MCHC (31-36) g/dl RDW (10.5-15) % Plt Count (150-450) 10^3/ul MPV (7.4-10.4) um3 Neut % (Auto) (38-83) % Lymph % (Auto) (25-47) % Izard % (Auto) (0-7) % Eos % (Auto) (0-6) % Baso % (Auto) (0-2) % Absolute Neuts (auto) (1.5-7.7) 10^3/ul Absolute Lymphs (auto) (1.0-4.8) 10^3/ul Absolute Monos (auto) (0-0.8) 10^3/ul Absolute Eos (auto) (0-0.6) 10^3/ul Absolute Basos (auto) (0-0.2) 10^3/ul Absolute Nucleated RBC 10^3/ul Nucleated RBC % INR (Anticoag Therapy) (0.77-1.02) APTT (26.0-36.3) seconds D-Dimer, Quantitative (Less Than 230) ng/mL Sodium (135-145) mmol/L Potassium (3.5-5.0) mmol/L Chloride (101-111) mmol/L Carbon Dioxide (22-32) mmol/L Anion Gap (2-11) mmol/L BUN (6-24) mg/dL Creatinine (0.51-0.95) mg/dL Est GFR ( Amer) (>60) Est GFR (Non-Af Amer) (>60) BUN/Creatinine Ratio (8-20) Glucose (70-100) mg/dL Lactic Acid 1.8 (0.5-2.0) mmol/L Calcium (8.6-10.3) mg/dL Total Bilirubin (0.2-1.0) mg/dL AST (13-39) U/L ALT (7-52) U/L Alkaline Phosphatase (34-104) U/L Troponin I 0.00 (<0.04) ng/mL C-Reactive Protein (< 5.00) mg/L Total Protein (6.4-8.9) g/dL Albumin (3.2-5.2) g/dL Globulin (2-4) g/dL Albumin/Globulin Ratio (1-3) Lipase (11.0-82.0) U/L Result Diagrams: 02/27/18 16:52 02/27/18 16:52 Lab Statement: Any lab studies that have been ordered have been reviewed, and results considered in the medical decision making process. - Radiology CXR Xray Interpretation: No Acute Changes - NO ACTIVE CARDIOPULMONARY DISEASE. ED physician reviewed this report. Radiology Interpretation Completed By: Radiologist - EKG 1620 Cardiac Rate: Tachycardia - 101 bpm EKG Rhythm: Sinus Tachycardia Ectopy: None EKG Interpretation: ST depressions in the anterolateral leads 1705 Cardiac Rate: NL - 77 bpm EKG Rhythm: Sinus Rhythm Ectopy: None EKG Interpretation: Minimal ST depressions in V3-V5 Chest Pain Course/Dx - Course Course Of Treatment: DISCUSSED WITH CARDIOLOGY, BOTH DR RODRIGUEZ AND DR DÍAZ. ADMIT HOSPITALIST. - Diagnoses Provider Diagnoses: Chest pain - Provider Notifications Discussed Care Of Patient With: Cheko Rodriguez Time Discussed With Above Provider: 17:36 Instructed by Provider To: Other - Agreed with Heparin and beta kai administration, as well as NTG to help with pain and advised consult with Dr. Díaz. Discussed care of pt with Dr. Díaz at 1749 who will review her records. Discussed care of pt with Dr. Kumar at 1822 who accepts pt for admission. - Critical Care Time Critical Care Time: 30-74 min Discharge - Sign-Out/Discharge Documenting (check all that apply): Discharge/Admit/Transfer - Admit - Discharge Plan Condition: Stable Disposition: ADMITTED TO [facility] - Billing Disposition and Condition Condition: STABLE Disposition: Admitted to [facility] The documentation as recorded by the Huong luis Rebecca accurately reflects the service I personally performed and the decisions made by me, Carlo Allen MD.
--- NOTE | 2018-02-28 01:28 | HP ---
CC: Dr. Saucedo; Dr. Cheko Rodriguez * ADMISSION HISTORY AND PHYSICAL: DATE OF ADMISSION: 02/27/2018 PRIMARY CARE PROVIDER: Dr. Saucedo. MY ATTENDING PHYSICIAN WHILE IN HOSPITAL: Dr. Eagle Dubose.* (DICTATED BY BRYN MONTERO) CONSULTING MUSEUM INFORMATICS SPECIALIST: Dr. Cheko Rodriguez. CHIEF COMPLAINT: Chest pain. HISTORY OF PRESENT ILLNESS: Ms. Castellano is a 47-year-old female with past medical history significant only for STEMI in 2017, status post stent of the right posterior descending artery as well as asthma, who presents with chest pain today. The patient states that she woke up this morning with a burning sensation in her epigastric area. The patient then started with numbness and pain in her arm around 2 p.m. with radiation up into her shoulder and her chest with numbness and tingling down into her hand. The patient states that she had associated shortness of breath, diaphoresis, and had some nausea, but no vomiting. The patient states that this feels very similar in presentation to her previous STEMI. The patient states that the nitroglycerin and the morphine helped with her pain; it has not gone away entirely since 2 p.m. The patient states that nitro patch also did not help. The patient states that the pain did not change with exertion, such as walking around [employer] and that it does get worse with breathing; it is not reproducible with palpation. The patient states that she has had frequent chest pain since she was previously in the hospital, but that all felt superficial and over the left side of her chest and what concerned her today was this chest pain being in her arm similar to her previous heart attack. The patient followed with Dr. Quinones in November of this year where she states she had lightheaded spells as well as superficial pain on left side of her chest as well as shortness of breath with activity, which she denies at this time. The patient also denies PND, nocturia, orthopnea , though the patient has had swelling in her legs over the last 2 weeks and so she was started on hydrochlorothiazide. The patient in November was weaned off her metoprolol. The patient has had no asthma exacerbations. The patient has had no changes in her diet, level activity. The patient stayed approximately the same weight. She came in having lost only a little bit of weight. The patient denies any other recent illnesses. The patient denies current nausea, vomiting, shortness of breath, fevers, chills, abdominal pain, diarrhea, or constipation. Due to chest pain with concern for myocardial infarction, we were asked to evaluate the patient for admission. PAST MEDICAL HISTORY: STEMI in 2017, status post stenting in the right posterior descending artery; asthma. PAST SURGICAL HISTORY: Appendectomy as a child. MEDICATIONS: 1. Aspirin 81 mg p.o. daily. 2. Cranberry-ascorbic acid 1 cap p.o. daily. 3. Vitamin D3 1000 units p.o. daily. 4. Nasonex 2 sprays both nostrils daily. 5. Singulair 10 mg p.o. daily. 6. Prasugrel 10 mg p.o. daily. 7. Vitamin C 1000 mg p.o. daily. 8. Hydrochlorothiazide 12.5 to 25 mg p.o. daily as needed for swelling. 9. Magnesium oxide 400 mg p.o. daily. 10. Albuterol inhaler as needed for shortness of breath. ALLERGIES: PENICILLIN. FAMILY HISTORY: The patient's mother has had lymphoma x3 and has Alzheimer's dementia, but is still alive. The patient's father is healthy. The patient's maternal grandmother had diabetes and of a heart attack at 65. The patient has 2 aunts with breast cancer. The patient's father's family has a history of heart and vascular conditions. The patient has a niece and a daughter, who have arrhythmias at a young age. SOCIAL HISTORY: The patient smoked socially for several years, 25 years ago. The patient drinks a glass of wine at night. The patient used marijuana and cocaine in her teenage years, has not used any illicit drugs since. 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 The patient is , has 2 children. The patient would like her surrogate decision maker to be , Tad Castellano. REVIEW OF SYSTEMS: A 14-point review of systems was reviewed and is negative except as above in the HPI. PHYSICAL EXAMINATION GENERAL: The patient is a 47-year-old female, who appears stated age and sitting comfortably in bed, in no acute distress. VITAL SIGNS: At the time of evaluation, temperature 98, pulse rate 63, respiratory rate 13, oxygen saturation 100% on 2 L, blood pressure 128/80. HEENT: Head normocephalic, atraumatic. Sclerae anicteric. No conjunctival injection. Nasal mucosa moist. Oral mucosa moist. No pharyngeal erythema, discharge, or exudates. NECK: Supple. Nontender. No lymphadenopathy. No carotid bruit auscultated. No JVD. RESPIRATORY: Clear to auscultation bilaterally. No wheezes, rales, or rhonchi. Good air exchange bilaterally. CARDIAC: Regular rate and rhythm. No clicks, murmurs, gallops, or rubs. Pulses are 2+ in bilateral dorsalis pedis, posterior tibial, and radial areas. No bilateral lower extremity edema or calf tenderness. ABDOMEN: Soft, nontender, nondistended. Bowel sounds present and normoactive in all 4 quadrants. No hepatosplenomegaly. No abdominal bruit auscultated. No hepatojugular reflux. NEUROLOGIC: Cranial nerves II through XII intact. No focal deficits. Alert and oriented x3. PSYCHIATRIC: Pleasantly cooperative. SKIN: The patient has bruises on her body particularly in her lower extremity. No other rash. DIAGNOSTIC STUDIES/LAB DATA: White blood cell count 6.9, hemoglobin 12.9, hematocrit 37, platelet count 234. INR 0.94, aPTT 30.1, D-dimer less than 200. Sodium 136, potassium 3.2, chloride 102, carbon dioxide 23, anion gap 11, BUN 16 , creatinine 0.92, glucose 112, lactic acid 1.8, calcium 9.7. Bilirubin 1.2, AST 19, ALT 15, alkaline phosphatase 44. Troponin I 0.00 x2. CRP 1.07. Total protein 7.1, albumin 4.3, globulin 2.8. Lipase 29. Chest x-ray: Read as no active cardiopulmonary disease. Initial EKG taken at 1529 at Urgent Care shows borderline ST-segment depression in leads I, II, V3, V4, V5, and V6. No T-wave inversions. No hypertrophy or enlargement. Intraventricular conduction delay, rate 89, QTc of 458. No other signs of ischemia. Repeat EKG shows persistent ST depression in the lateral leads, T-wave flattening in II, III, and aVF. Q waves inferiorly present, rate of 101, QTc of 432. Repeat EKG after nitroglycerin shows resolution of ST depression in V3, V5, V6, II. Persistent T-wave flattening in lead III, persistent minimal T-wave, and ST depression in V5. ASSESSMENT/PLAN: Impression: 1. Ms. Castellano is a 47-year-old female with past medical history significant for ST-segment elevation myocardial infarction, with stenting and asthma, who presents with chest pain similar to her previous myocardial infarction, which is persistent despite treatment with nitroglycerin though this improves the pain. The patient had ST-segment depression as well as associated symptoms of shortness of breath, nausea, vomiting, and diaphoresis. The patient has had 2 negative troponins. The patient is being treated with heparin drip, being continued on dual-antiplatelet therapy, and treated with metoprolol and nitroglycerin. 2. Chest pain, rule out myocardial infarction. The patient has chest pain similar to her previous ST-segment myocardial infarction. The patient has EKG changes. The patient has a KARRI risk score of 4, indicating intermediate risk. The patient discussed with Cardiology and will be continued on dual- antiplatelet therapy, heparin drip, metoprolol, and nitrates. The patient will be seen in consultation in the morning with consideration for cardiac catheterization versus stress testing. The patient is also being treated with morphine for chest pain, as her chest pain is still present at the time of evaluation. 3. Asthma. Hold the patient's albuterol while she is in the hospital to avoid strain on her heart. The patient will be evaluated before being given albuterol , also hold the patient's Singulair as it can cause tachycardia and this could be resumed as the patient's chest pain decreases. The patient has no signs of exacerbation at this time. 4. FEN. The patient will have heart-healthy diet without caffeine. The patient is borderline hypertensive. We will hold off on fluids. 5. Hypokalemia. The patient is mildly hypokalemic. We will replete. 7. Code status. The patient would like to be a full code. The patient would like her surrogate decision maker to be her , Tad Castellano, as above. 8. DVT prophylaxis. The patient is a low risk. The patient will be on a heparin drip. TIME SPENT: Approximately 60 minutes was spent on this admission, 30 minutes of which was spent [id number] with the patient obtaining history and physical. This plan has been discussed with my attending, Dr. Eagle Dubose , and he is in agreement. BRYN MONTERO [id number]/[facility] #: [id number] ALEXA
[2018-02-28] MEDS: NS 0.9% 1000 ML* 1,000 ML IV SCH ×3 (02:43→19:52)
[2018-02-28] MEDS: Morphine VIAL* 4 MG/ML VIAL (1 ml vial) IV PRN ×2 (05:47→19:52)
[2018-02-28 07:04] LABS: ABS Basophils 0 10^3/ul (0-0.2); ABS Eosinophils 0.4 10^3/ul (0-0.6); ABS Lymphocytes 1.9 10^3/ul (1.0-4.8); ABS Monocytes 0.4 10^3/ul (0-0.8); ABS Neutrophils 3.7 10^3/ul (1.5-7.7); ABS Nucleated RBC 0 10^3/ul; Eosinophil % 5.6 % (0-6); Hematocrit 35 % (35-47); Hemoglobin 12.1 g/dl (12.0-16.0); Lymphocyte % 29.6 % (25-47); Mean Corpuscular HGB Conc 35 g/dl (31-36); Mean Corpuscular Hemoglobin 31 pg (27-31); Mean Corpuscular Volume 88 fL (80-97); Mean Platelet Volume 8.3 um3 (7.4-10.4); Nucleated Red Blood Cells % 0.1; Platelet Count 191 10^3/ul (150-450); Red Blood Count 3.91 10^6/ul (4.00-5.40); Red Cell Distribution Width 14 % (10.5-15); White Blood Count 6.3 10^3/ul (3.5-10.8)
[2018-02-28 07:27] LABS: EGFR Non-African American 70.1 (>60)
[2018-02-28] MEDS: CMCS:Prasugrel (NF) 10 MG PO SCH (08:51)
[2018-02-28] MEDS: Metoprolol Tartrate TAB* 25 MG PO SCH ×2 (08:51→21:54)
[2018-02-28] MEDS: Aspirin 81 mg CHEW TAB* 81 MG TAB.CHEW PO SCH (08:51)
[2018-02-28] MEDS: Magnesium Oxide TAB* 400 MG PO SCH (08:51)
[2018-02-28] MEDS: Fluticasone NASAL SPRAY 50MCG* 16 gm SPRAY BTL BOTH NARES SCH (08:53)
--- NOTE | 2018-02-28 08:55 | PN ---
Subjective Date of Service: 02/28/18 Interval History: Patient reports she feels a little better but still has dull CP in left chest wall radiating to left shoulder. Report she had more significant CP in the night that woke her up out of her sleep. She reports left upper chest wall is tender to palpation. She denies any trauma, or exertional activity. No recent illnesses. otherwise feels that she has been doing well. Objective Active Medications: Acetaminophen (Tylenol Tab*) 650 mg PO Q6H PRN PRN Reason: FEVER/PAIN Aspirin (Aspirin 81 Mg Chew Tab*) 81 mg PO DAILY [facility] Cholecalciferol (Vitamin D Tab*) 5,000 units PO QPM [facility] Fluticasone Propionate (Flonase Nasal [place] 50mcg*) 2 spray BOTH NARES QAM [facility] Sodium Chloride (Ns 0.9% 1000 Ml*) 1,000 mls @ 150 mls/hr IV PER RATE [facility] Last Admin: 02/28/18 02:43 Dose: 150 mls/hr Heparin Sodium/Dextrose (Heparin Drip 25,000 Units(*)) 25,000 units in 500 mls @ 0 mls/hr IV PER RATE [facility]; Per Protocol PRN Reason: Protocol Last Admin: 02/27/18 18:33 Dose: 18 mls/hr Magnesium Oxide (Magox 400 Tab*) 400 mg PO DAILY [facility] Metoprolol Tartrate (Lopressor Tab*) 25 mg PO BID [facility] Last Admin: 02/27/18 22:52 Dose: Not Given Morphine Sulfate (Morphine Vial*) 2 mg IV Q4H PRN PRN Reason: PAIN - MILD Last Admin: 02/28/18 05:47 Dose: 2 mg Ondansetron HCl (Zofran 40 Mg Vial*) 4 mg IV Q6H PRN PRN Reason: NAUSEA Pharmacy Profile Note (Nitro Patch/Oint Remove*) 1 note PATCH OFF 2100 [facility] Last Admin: 02/27/18 22:52 Dose: 1 patch Prasugrel (Effient (Nf)) 10 mg PO QAM [facility] Vital Signs - 8 hr 02/28/18 02/28/18 02/28/18 03:16 05:47 07:31 Temperature 98.0 F 98.1 F Pulse Rate 51 60 Respiratory 20 16 16 Rate Blood Pressure 123/71 119/67 (mmHg) O2 Sat by Pulse 100 99 Oximetry 02/28/18 08:10 Temperature Pulse Rate Respiratory 16 Rate Blood Pressure (mmHg) O2 Sat by Pulse Oximetry Oxygen Devices in Use Now: None Appearance: well developed 47 yo female laying in bed A+O x3 in NAD Eyes: No Scleral Icterus, PERRLA Ears/Nose/Mouth/Throat: NL Teeth, Lips, Gums, Mucous Membranes Moist Neck: NL Appearance and Movements; NL JVP Respiratory: Symmetrical Chest Expansion and Respiratory Effort, Clear to Auscultation Cardiovascular: NL Sounds; No Murmurs; No JVD, RRR, No Edema, - - No JVD Abdominal: NL Sounds; No Tenderness; No Distention Extremities: No Edema, No Clubbing, Cyanosis Skin: No Rash or Ulcers, No Nodules or Sclerosis Neurological: Alert and Oriented x 3, NL Sensation, NL Gait, NL Muscle Strength and Tone Lines/Tubes/Other Access: Clean, Dry and Intact Peripheral IV Nutrition: Taking PO's Result Diagrams: 02/28/18 06:29 02/28/18 06:29 Additional Lab and Data: Lab Results 02/27/18 02/27/18 02/27/18 Range/Units 16:52 16:52 16:52 WBC 6.9 (3.5-10.8) 10^3/ul RBC 4.23 (4.00-5.40) 10^6/ul Hgb 12.9 (12.0-16.0) g/dl Hct 37 (35-47) % MCV 88 (80-97) fL MCH 30 (27-31) pg MCHC 35 (31-36) g/dl RDW 14 (10.5-15) % Plt Count 234 (150-450) 10^3/ul MPV 8.2 (7.4-10.4) um3 Neut % (Auto) 67.5 (38-83) % Lymph % (Auto) 23.2 L (25-47) % [place] % (Auto) 6.1 (0-7) % Eos % (Auto) 2.5 (0-6) % Baso % (Auto) 0.7 (0-2) % Absolute Neuts (auto) 4.6 (1.5-7.7) 10^3/ul Absolute Lymphs (auto) 1.6 (1.0-4.8) 10^3/ul Absolute Monos (auto) 0.4 (0-0.8) 10^3/ul Absolute Eos (auto) 0.2 (0-0.6) 10^3/ul Absolute Basos (auto) 0 (0-0.2) 10^3/ul Absolute Nucleated RBC 0 10^3/ul Nucleated RBC % 0 INR (Anticoag Therapy) 0.94 (0.77-1.02) APTT 30.1 (26.0-36.3) seconds D-Dimer, Quantitative < 200 (Less Than 230) ng/mL Sodium 136 (135-145) mmol/L Potassium 3.2 L (3.5-5.0) mmol/L Chloride 102 (101-111) mmol/L Carbon Dioxide 23 (22-32) mmol/L Anion Gap 11 (2-11) mmol/L BUN 16 (6-24) mg/dL Creatinine 0.92 (0.51-0.95) mg/dL Est GFR ( Amer) 83.4 (>60) Est GFR (Non-Af Amer) 64.9 (>60) BUN/Creatinine Ratio 17.4 (8-20) Glucose 112 H (70-100) mg/dL Lactic Acid (0.5-2.0) mmol/L Calcium 9.7 (8.6-10.3) mg/dL Total Bilirubin 1.20 H (0.2-1.0) mg/dL AST 19 (13-39) U/L ALT 15 (7-52) U/L Alkaline Phosphatase 44 (34-104) U/L Troponin I 0.00 (<0.04) ng/mL C-Reactive Protein 1.07 (< 5.00) mg/L Total Protein 7.1 (6.4-8.9) g/dL Albumin 4.3 (3.2-5.2) g/dL Globulin 2.8 (2-4) g/dL Albumin/Globulin Ratio 1.5 (1-3) Lipase 29 (11.0-82.0) U/L 02/27/18 02/27/18 Range/Units 16:52 19:13 WBC (3.5-10.8) 10^3/ul RBC (4.00-5.40) 10^6/ul Hgb (12.0-16.0) g/dl Hct (35-47) % MCV (80-97) fL MCH (27-31) pg MCHC (31-36) g/dl RDW (10.5-15) % Plt Count (150-450) 10^3/ul MPV (7.4-10.4) um3 Neut % (Auto) (38-83) % Lymph % (Auto) (25-47) % [place] % (Auto) (0-7) % Eos % (Auto) (0-6) % Baso % (Auto) (0-2) % Absolute Neuts (auto) (1.5-7.7) 10^3/ul Absolute Lymphs (auto) (1.0-4.8) 10^3/ul Absolute Monos (auto) (0-0.8) 10^3/ul Absolute Eos (auto) (0-0.6) 10^3/ul Absolute Basos (auto) (0-0.2) 10^3/ul Absolute Nucleated RBC 10^3/ul Nucleated RBC % INR (Anticoag Therapy) (0.77-1.02) APTT (26.0-36.3) seconds D-Dimer, Quantitative (Less Than 230) ng/mL Sodium (135-145) mmol/L Potassium (3.5-5.0) mmol/L Chloride (101-111) mmol/L Carbon Dioxide (22-32) mmol/L Anion Gap (2-11) mmol/L BUN (6-24) mg/dL Creatinine (0.51-0.95) mg/dL Est GFR ( Amer) (>60) Est GFR (Non-Af Amer) (>60) BUN/Creatinine Ratio (8-20) Glucose (70-100) mg/dL Lactic Acid 1.8 (0.5-2.0) mmol/L Calcium (8.6-10.3) mg/dL Total Bilirubin (0.2-1.0) mg/dL AST (13-39) U/L ALT (7-52) U/L Alkaline Phosphatase (34-104) U/L Troponin I 0.00 (<0.04) ng/mL C-Reactive Protein (< 5.00) mg/L Total Protein (6.4-8.9) g/dL Albumin (3.2-5.2) g/dL Globulin (2-4) g/dL Albumin/Globulin Ratio (1-3) Lipase (11.0-82.0) U/L Assess/Plan/Problems-Billing Assessment: 47 yo female with a PMH of CAD with hx of STEMI s/p stent, asthma who presents on 02/27 with c/o CP, SOB, nausea, vomiting, diaphoresis with negative troponins with noted ST segment depressions who was started on a Heparin gtt on admission. - Patient Problems (1) Chest pain Comment: - Flat troponins, non-specific EKG changes per cardiology, which are not new, ST depression has improved today with starting beta kai which has slowed down her rate. Plan to D/C Heparin gtt. Restart Nitro patch to see if she has improvement. With the nitro patch on previously she continued to have some underlying dull pain. Give dose of NSAID and see if she has any relief. - Appreciate cardiology by Dr. Rodriguez. Plan for nuclear stress in am. Has followed with Dr. Quinones as an outpt since STEMI last year. Spoke with Dr. Quinnoes, no plan for cath at this time. Reprots she has hx of non-cardiac chest wall pain. - continue ASA, BB, Prasugrel - Echo pending - recently started on HCTZ for retained edema as an outpt - per cardiology should not go home on this med (not great for her CAD). Replace electrolytes most likely due to HCTZ (2) Asthma Comment: - controlled (3) DVT prophylaxis Comment: HSQ (4) Full code status Status and Disposition: OBV. Plan for stress test in am. If negative will go home tomorrow. Follow up with PCP. Per Dr. Quinones she will need to be set up with a primary modular set crew member for next follow-up.
[2018-02-28] MEDS: Nitroglycerin 0.4 MG/HR PATCH* (10 MG) TRANSDERM SCH (11:20)
[2018-02-28] MEDS ORDERED: Ibuprofen TAB* 400 MG PO PRN (11:35)
[2018-02-28] MEDS ORDERED: Potassium Chlor TAB* 20 MEQ TAB.ER PO ONE (12:20)
--- NOTE | 2018-02-28 13:08 | CONS ---
CC: Dr. Saucedo; Dr. Quinones; Dr. Rodriguez CARDIOLOGY CONSULTATION REPORT: DATE OF CONSULT: 02/28/18 REASON FOR EVALUATION: Chest pain, coronary artery disease. HISTORY OF PRESENT ILLNESS: This is a very pleasant 47-year-old woman who had a STEMI in 2017. At that time, she had stenting of her right posterior descending artery as well as asthma. She states she has done well since then. She states she walks for half an hour and does a video exercise class for 30 to 60 minutes several times a week. She does go for a light run with her with her colleagues, but has had trouble going up the hills. She did not use to run, so it is hard for her to compare this prior to her stenting. She states that she also has been diagnosed with asthma after an episode of pneumonia last year and she uses an inhaler before running and sometimes that helps. She was in her usual state of health until yesterday morning, she woke up around 8:30 and had some mild chest discomfort, chest pressure. She had no associated symptoms and said it was mild and she proceeded with her day and went out shopping, did some chores, around 2:00 while shopping she developed tingling and discomfort in her left chest, left arm, and it began to radiate around her back. There was some shortness of breath with that. Because of the symptoms, [facility] There she had an EKG, which was abnormal and she was sent to the ER. EKG from 02/27/18 at 1620 revealed what appeared to be sinus tach at [address] depressions of about 1 mm. Because of those findings , she was transferred to the emergency room. She got additional 3 baby aspirins at [facility]. She got 2 nitros with some improvement and 2 nitros in the ambulance crew and a nitro and morphine in the ER. She had some improvement in her pain and was started on nitro paste, IV heparin. She reports that she thinks she may have had some relief earlier in the evening yesterday with the nitro. The nitro patch was taken off overnight and she said she had 3 episodes of increased pain up to 7/10, which woke her up from sleep and lasted for several minutes. She said now her pain is back to 3/10 and is mild and no arm pain, just mild chest pressure. She denies any fevers, chills, sweats, palpitations, syncope or near syncope, no change in her diet or medications. She has been trying to eat healthy. She reports that she does not tolerate statins. She had a history of light tobacco use discontinued 25 years ago and asthma diagnosed after pneumonia last year. She has a history of STEMI in January 2017. At that time, she had a cardiac catheterization performed and had a stent placed, 2.25 mm x 15 Xience, placed in the right posterior descending artery. At that time, she had near total occlusion. She had normal LV function with a mild regional wall motion abnormality. At that time, her EKG revealed inferior ST-elevations and reciprocal lateral ST depressions and a troponin elevated to 1.31. She denies hypertension, diabetes, hyperlipidemia. PAST SURGICAL HISTORY: Includes stent placement in January 2017, appendectomy in the 70s, 2 normal spontaneous vaginal deliveries and varicose vein surgery. ALLERGIES: Include PENICILLIN (rash) and intolerance to statins due to myalgias. FAMILY HISTORY: Her family history includes father is alive, mother has dementia and lymphoma. Her maternal grandmother had of CT at 65 and her daughter has a history of arrhythmia problem and her niece also has had an ablation at age 17, but no coronary disease. She also had a maternal uncle who had peripheral vascular disease and amputations. SOCIAL HISTORY: She drinks a glass of wine each night. No illicit drugs. She is . 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 REVIEW OF SYSTEMS: Review of systems x10 was negative except as above. PHYSICAL EXAMINATION: She is a well-developed, well-nourished female in no apparent distress. Blood pressure 119/67, pulse 60. No significant JVD. Carotids 2+ without bruits. No cervical adenopathy. No thyromegaly. Cardiac Exam: S1, S2 without murmurs, gallops or rubs. Chest was clear, no CVAT. Abdomen: Bowel sounds present. Nontender. Femoral pulses intact with bruits. Distal pulses intact and motor strength 5/5 bilaterally. Deep tendon reflexes 2/4. Alert and oriented x3. LABORATORY DATA/DIAGNOSTIC STUDIES: Include sodium 139, potassium 3.8, BUN 12, creatinine 0.86, magnesium 1.9. Troponin of 0 last afternoon, 0 yesterday evening and 0 at near midnight. Cholesterol 158, LDL 90, HDL 48. Total bili elevated at 1.2. CBC within normal limits. Chest x-ray by report revealed no active cardiopulmonary disease and EKGs from 02/27/[address] depressions of about 1 mm laterally. EKG on 02/27/18 at about 1705 revealed sinus rhythm with improvement in the lateral ST changes and heart rate was slower at 77 compared to 101. EKG from today at 5:34 a.m. revealed sinus brachycardia at [address] changes and EKG from 11:04 today revealed sinus bradycardia with minimal ST changes. IMPRESSION: My impression is that Ms. Castellano has chest pain of unclear etiology with a history of STEMI a year ago. I also discussed the case with Dr. Quinones. She has a history of nonspecific lateral ST changes which may decrease the specificity of findings today; she had negative troponins with prolonged chest pain. I did discuss the case at length with her and Dr. Quinones. Given the lack of enzyme elevation and lack of clear-cut injury pattern , we will defer catheterization for now. For the time being, I would recommend to continue with aspirin 81 mg and Effient. Would continue nitrates and low dose beta-kai as tolerated. Would consider a stress test tomorrow to evaluate for ischemia. If negative, we will continue medical therapy and consider an evaluation for non - cardiac sources of chest pain. We will check a sed rate and CRP looking for inflammation. She has echo pending to evaluate for wall motion abnormalities. The case was also reviewed with Latrice Duggan NP. [id number]/[facility] #: [id number] addendum: echo revealed mild relative interior hypokinsis; consider ischemia vs old nonstransmural CT. WIll plan for stress test tomorrow. ABHIJEET 02.28.18 MTDMario
[2018-02-28] MEDS: Heparin VIAL(*) 5000 UNITS/ML VIAL (FIVE THOUSAND) SUBCUT SCH ×2 (14:33→21:54)
--- NOTE | 2018-02-28 15:10 | ECHO ---
Patient: TRINY WOOD [facility] Rec#: [id number] : 1970 Date: 02/28/2018 Age: 47y Height: 170.18 cm / 67.0 in Weight: 77.11 kg / 170.0 lbs Sex: F BSA: 1.89 Room#: [facility] Admit Date#: 02/27/2018 Type: Inpatient Referring: Carlo Roland Reading: Cheko Rodriguez MD [place] Supervisor: Hannah Pham,GLADYSCS,RDMS CC: Mavis Quinones MD Transthoracic Echocardiogram Indication: CP BP: 119/67 HR: 54 Rhythm: Bradycardia Findings History: STEMI, PCI Technical Comments: The study quality is good. Left Ventricle: The left ventricular chamber size is normal. There is no left ventricular hypertrophy. There is a prominent septal knuckle. The estimated ejection fraction is 55-60%. Subtle relative hypokinesis of the inferior wall. Abnormal left ventricular diastolic filling is observed, consistent with impaired relaxation. Left Atrium: The left atrial chamber size is normal. Right Ventricle: The right ventricular chamber size and systolic function are within normal limits. Right Atrium: The right atrium is slightly dilated. Aortic Valve: The aortic valve is trileaflet. There is no evidence of aortic valve thickening. Systolic excursion of the aortic valve is normal. There is no evidence of aortic regurgitation. There is no evidence of aortic stenosis. Mitral Valve: The mitral valve leaflets appear normal. There is a trace of mitral regurgitation. There is no evidence of mitral stenosis. Tricuspid Valve: The tricuspid valve leaflets are normal. There is mild to moderate tricuspid regurgitation. No pulmonary hypertension is noted. Pulmonic Valve: The pulmonic valve appears normal. There is mild pulmonic regurgitation. Pericardium: There is no significant pericardial effusion. Aorta: The aortic root appears normal. There is no dilatation of the aortic arch. Pulmonary Artery: The main pulmonary artery appears normal. Venous: The inferior vena cava is dilated. There is a greater than 50% respiratory change in the inferior vena cava dimension. Summary: There was not any prior study for comparison. Conclusions The estimated ejection fraction is 55-60%. Subtle relative hypokinesis of the inferior wall of uncertain significance (consider ischemic dsyfunction vs remote nonstransmural [place]). Abnormal left ventricular diastolic filling is observed, consistent with impaired relaxation. There is a trace of mitral regurgitation. There is mild to moderate tricuspid regurgitation. There is mild pulmonic regurgitation. Measurements Name Value Normal Range RVIDd (AP) 2D 3.3 cm (0.9 - 2.6) RVDdMajor (2D) 3.8 cm (2.2 - 4.4) RAd ISD 4CH 4.8 cm (3.4 - 4.9) RA (A4C)W 4.8 cm (2.9 - 4.6) IVSd (2D) 1.1 cm (0.6 - 1) LVPWd (2D) 0.8 cm (0.6 - 1) LVIDd (2D) 5.1 cm (3.6 - 5.4) LVIDs (2D) 3.2 cm - LV FS (2D) 38 % (25 - 45) Aortic Annulus 2.2 cm (1.4 - 2.6) Ao root diameter (2D) 3.3 cm (2.1 - 3.5) Ascending Ao 3.1 cm (2.1 - 3.4) Aortic arch 2.6 cm (1.8 - 3.4) LA dimension (AP) 2D 3.6 cm (2.3 - 3.8) LAd ISD 4CH 5.2 cm (2.9 - 5.3) LA ISD 4CH W 4.1 cm (2.5 - 4.5) Name Value Normal Range LA ESV SP 4CH (A/L) 58.87 ml - LA ESV SP 2CH (A/L) 61.93 ml - LA ESV BP (A/L) 60.8 ml - LA ESV BP (A/L) index 32 ml/m2 - LA ESV SP 4CH (MOD) 52.16 ml - LA ESV SP 2CH (MOD) 57.9 ml - Name Value Normal Range MV E-wave Vmax 0.6 m/sec - MV deceleration time 226 msec - MV A-wave Vmax 0.8 m/sec - MV E:A ratio 0.7 ratio - P. vein S-wave Vmax 0.6 m/sec - P. vein D-wave Vmax 0.3 m/sec - P. vein S:D Vmax ratio 1.9 ratio - P. vein A-wave duration 93.4 msec - LV septal e' Vmax 0.05 m/sec - LV lateral e' Vmax 0.08 m/sec - LV E:e' septal ratio 12 ratio - LV E:e' lateral ratio 7.5 ratio - Name Value Normal Range AV Vmax 1.2 m/sec - AV VTI 26.7 cm - AV peak gradient 6 mmHg - AV mean gradient 3.1 mmHg - LVOT Vmax 0.9 m/sec - LVOT VTI 20.2 cm - LVOT peak gradient 3.2 mmHg - LVOT mean gradient 1.6 mmHg - JAISON Vmax 0.8 m/sec - Name Value Normal Range TR Vmax 2.3 m/sec - TR peak gradient 21 mmHg - RAP 3 mmHg - RVSP 24 mmHg - IVC diameter 2.5 cm - Name Value Normal Range PV Vmax 0.7 m/sec - PV peak gradient 2 mmHg -
[2018-02-28] MEDS ORDERED: Cholecalciferol TAB* 1000 UNITS PO SCH (18:00)
[2018-02-28] MEDS: Nitro Patch/OINT Remove PATCH OFF SCH (21:57)
[2018-03-01] MEDS: NS 0.9% 1000 ML* 1,000 ML IV SCH (03:47)
[2018-03-01] MEDS: Heparin VIAL(*) 5000 UNITS/ML VIAL (FIVE THOUSAND) SUBCUT SCH (05:31)
[2018-03-01 05:38] LABS: ABS Basophils 0 10^3/ul (0-0.2); ABS Eosinophils 0.4 10^3/ul (0-0.6); ABS Lymphocytes 1.8 10^3/ul (1.0-4.8); ABS Monocytes 0.4 10^3/ul (0-0.8); ABS Neutrophils 4.3 10^3/ul (1.5-7.7); ABS Nucleated RBC 0 10^3/ul; Eosinophil % 5.7 % (0-6); Hematocrit 33 % (35-47); Hemoglobin 11.2 g/dl (12.0-16.0); Lymphocyte % 25.9 % (25-47); Mean Corpuscular HGB Conc 34 g/dl (31-36); Mean Corpuscular Hemoglobin 31 pg (27-31); Mean Corpuscular Volume 89 fL (80-97); Mean Platelet Volume 8.6 um3 (7.4-10.4); Nucleated Red Blood Cells % 0; Platelet Count 182 10^3/ul (150-450); Red Blood Count 3.67 10^6/ul (4.00-5.40); Red Cell Distribution Width 14 % (10.5-15)
[2018-03-01 05:59] LABS: EGFR Non-African American 78.5 (>60)
[2018-03-01] MEDS: Nitroglycerin 0.4 MG/HR PATCH* (10 MG) TRANSDERM SCH (10:24)
[2018-03-01] MEDS: Fluticasone NASAL SPRAY 50MCG* 16 gm SPRAY BTL BOTH NARES SCH (10:25)
--- NOTE | 2018-03-01 12:09 | RAD ---
Edited for charges. INDICATION: Chest pain. COMPARISON: There are no prior studies available for comparison. Technique: A single day myocardial perfusion stress study was performed. Initially a resting study was performed. The patient was given an intravenous injection of 10.8 mCi of technetium 99m tetrofosmin and and the heart was imaged in multiple projections. The patient returned later in the day and under the direction of Dr. Traore, the patient was exercised to a peak heart rate of 170 beats per minute which was 99% of the maximum predicted heart rate. Subsequently the patient was given intravenous injection of 24.0 mCi of technetium 99m tetrofosmin and the heart was imaged in multiple projections. Images were reconstructed in the axial, sagittal and coronal planes and in a 3- D format. FINDINGS: There appears to be normal wall motion and myocardial thickening. The left ventricular ejection fraction was calculated to be 58%. Review of the images demonstrates no significant perfusion defects after stress or rest. IMPRESSION: NO EVIDENCE FOR INFARCT OR ISCHEMIA. ASSESSMENT: Low risk. Based on imaging criteria from ACC/AHA 2002 Guideline Update for the Management of Patients With Chronic Stable Angina Table 23. Noninvasive Risk Stratification. MTDD
[2018-03-01] MEDS: Metoprolol Tartrate TAB* 25 MG PO SCH (13:02)
[2018-03-01 13:12] VITALS: BP 128/46
[2018-03-01] MEDS: CMCS:Prasugrel (NF) 10 MG PO SCH (13:25)
[2018-03-01] MEDS: Magnesium Oxide TAB* 400 MG PO SCH (13:26)
[2018-03-01] MEDS: Aspirin 81 mg CHEW TAB* 81 MG TAB.CHEW PO SCH (13:26)
--- NOTE | 2018-03-02 16:17 | DS ---
CC: Dr. Saucedo; Dr. Rodriguez * DISCHARGE SUMMARY: DATE OF ADMISSION: 02/28/18 DATE OF DISCHARGE: 03/01/18 PROVIDER: Sanaz Llamas NP. ATTENDING PROVIDER: Eagle Dubose MD * (DICTATED BY SANAZ LLAMAS NP) PRIMARY CARE PROVIDER: Dr. Saucedo PRIMARY DIAGNOSIS: Chest pain, noncardiac. SECONDARY DIAGNOSES: 1. ST elevation myocardial infarction in 2017, status post stent in the right posterior descending artery. 2. Asthma. MEDICATIONS AT DISCHARGE: 1. Aspirin 81 mg p.o. daily. 2. Cranberry 1 cap p.o. daily. 3. Vitamin D. 4. Nasonex 2 sprays to both nostrils daily. 5. Singulair 10 mg p.o. daily. 6. Prasugrel 10 mg p.o. daily. 7. Vitamin 1000 mg p.o. daily. 8. Hydrochlorothiazide 12.5 to 25 mg p.o. daily as needed for swelling. 9. Magnesium oxide 400 mg p.o. daily. 10. Albuterol inhaler as needed for shortness of breath. There were no new medications. She did have labs drawn while she was in the hospital. CBC and BMP were within normal limits. Her troponin was 0.00 x3. C-reactive protein was negative at 1.35, ESR was 5. DIAGNOSTIC EXAMS: Chest x-ray on 02/27/18, which showed no acute cardiopulmonary disease. She had a trans-thoracic echo on 02/27/18. Conclusion : Estimated ejection fraction 55% to 60% with relative hypokinesis of the inferior wall of uncertain significance, abnormal left ventricular systolic filling is observed consistent with impaired relaxation. There was trace of MR. There was [id number] tricuspid regurg. There was mild pulmonic regurgitation. HISTORY OF PRESENT ILLNESS AND HOSPITAL COURSE: Ms. Castellano is a 47-year-old female with a past medical history is significant only for STEMI in 2017, status post stent in the right posterior descending artery as well as asthma, who presented to the emergency room on 02/27/18 with chest pain. The patient states she woke up in the morning with a burning sensation in her epigastric area. The patient then started with numbness and pain in her arm around 2 p.m. with radiation in to her shoulder, in her chest with numbness and tingling down into her hand. The patient states she also had associated shortness of breath, diaphoresis, and some nausea but no vomiting. The patient does state her symptoms felt similar to the presentation with her previous STEMI. While in the emergency room, she received nitroglycerin, morphine, which helped her pain. The patient states that the nitro patch also did not help. She states that the pain did not change with exertion such as walking and [employer] and it does get worse with breath and is not reproducible with palpation. The patient denied any nocturia, orthopnea, though the patient has had some swelling of her legs over the past 2 weeks and was started on hydrochlorothiazide. The patient was weaned off her metoprolol in November. The patient has had no asthma exacerbation. This patient has no change in level of activity. The patient is approximately the same weight. She denies any recent illness on the day of admission. Denies any nausea, vomiting, shortness of breath, fever chills, abdominal pain, diarrhea, or constipation. She was admitted to the hospital due to her concern of chest pain, myocardial infarct. We were asked to evaluate her for admission. While in the hospital, she was monitored on telemetry. She had routine lab work drawn. Her troponins were trended and remained 0.00 x3 throughout her hospitalization. She did have a nuclear stress test, completed on 03/01/18, which was low risk for infarct or ischemia. Her left ventricular ejection fraction was calculated at 58%. She did well on the exercise portion of the stress test. She did have chest pain prior to starting the exercise stress test , which continued throughout the exam, but did not increase. REVIEW OF SYSTEMS: The patient denies any fever, chills. Denies any nausea, vomiting or diarrhea. Denies any abdominal pain. She does report left-sided chest pain that is reproducible with palpation to the left chest, just left of the left sternal area. She denies any shortness of breath. She denies any dizziness or weakness. A review of 14 systems was completed and all others were negative. PHYSICAL EXAMINATION: Vital Signs: Temperature was 98.1, heart rate was 74, respirations 16, O2 saturation was 100% on room air, blood pressure was 128/46. General: The patient is a very pleasant 47-year-old female who is in no acute distress. She is alert and oriented x3. HEENT: Head is atraumatic, normocephalic. Eyes: EOMs are intact. Pupils are equal and reactive to light. Oral mucosa appears to be moist. Neck is supple. There is no JVD. Cardiovascular: Regular. No murmurs, rubs, or gallops. Respiratory: Lung sounds are clear to auscultation bilaterally. There is no accessory muscle use. Abdomen is soft and nontender. Bowel sounds are present x4. Extremities: There is no edema. Pulses are +2 bilaterally. There is no clubbing or cyanosis. Neuro: The speech is clear. She is alert and oriented x3. There are no gross focal neuro deficits. Motor strength is 5/5 bilaterally. Ms. Castellano is stable for discharge home today. DISCHARGE PLAN: She will be discharged home. ACTIVITY: As tolerated. 1. Chest pain, noncardiac. The patient had a negative stress test with low risk. Nuclear portion of the chest reported low risk with no evidence of ischemia or infarct. The patient should continue on her previous home medications. She should follow up with her Student Finance Advisor in 3 to 4 weeks for further evaluation. I suspect her chest pain is related to musculoskeletal as it is reproducible with palpation to the left chest just lateral to the sternal border. She does report when she took one dose of ibuprofen that her chest pain did improve. Unfortunately, the patient will not be able to take ibuprofen as she currently takes Effient and aspirin at home and adding ibuprofen will increase her risk of bleeding, this was discussed with the patient and recommended that she should not take ibuprofen at home that she could take a Tylenol 650 mg p.o. q. 4 hours as needed for pain. 2. History of coronary artery disease with stenting. She should continue her Effient and aspirin as previously prescribed. 3. Asthma. She should continue albuterol inhaler as needed for shortness of breath. 4. The patient was instructed to follow up with her primary care provider in 4 to 7 days for further evaluation. 5. The patient was instructed to return to the hospital for recurrent or worsening chest pain, shortness of breath, nausea, vomiting, lightheadedness, loss of conscious, bleeding, or any other concerning symptoms. The patient verbalized understanding. This is a summarization of her hospitalization. For further details, please see the entire medical record. TIME SPENT: Greater than 60 minutes was spent on the discharge of this patient , greater than half that time was spent [id number] with the patient discussing her discharge plans and implementing them. SANAZ LLAMAS, OZIEL [id number]/[facility] #: [id number] ALEXA
== END 2018-03-01 13:51 | disposition home or self-care (01) | DRG 198 ==
LOC: ED 16:17 → MEDTELE 20:09 → OBSVTOIN 02-28 15:31
PROVIDERS: ADMIT Hospitalist; ATTEND Hospitalist
DX: R07.89 Other chest pain (principal); J45.909 Unspecified asthma, uncomplicated; I25.10 Atherosclerotic heart disease of native coronary artery without angina pectoris; E87.6 Hypokalemia; Z95.5 Presence of coronary angioplasty implant and graft; I25.2 Old myocardial infarction; Z79.82 Long term (current) use of aspirin; Z79.899 Other long term (current) drug therapy; Z88.0 Allergy status to penicillin; Z80.7 Family history of other malignant neoplasms of lymphoid, hematopoietic and related tissues; Z80.3 Family history of malignant neoplasm of breast; Z83.3 Family history of diabetes mellitus; Z82.49 Family history of ischemic heart disease and other diseases of the circulatory system; Z87.891 Personal history of nicotine dependence
CPT/HCPCS: 36415; 71045; 78452; 80048; 80053; 80061; 83036; 83605; 83690; 83735; 84484; 85025; 85379; 85610; 85652; 85730; 86140; 93005; 93017; 93306; 99213; 99285; A9270-GY; A9502; G0463; J1644; J2270; J3490

== ENCOUNTER 2018-11-05 07:32 | Emergency (ER) | payer BC ==
[2018-11-05 07:45] VITALS: BP 135/93
--- NOTE | 2018-11-05 07:56 | UC ---
Abdominal Pain Female HPI - HPI Summary HPI Summary: Patient presents to urgent care with 2 weeks progressive urinary frequency, urgency, and discomfort. Patient denies any hematuria. Mild low back pain. No nausea vomiting. Patient use we'll increase fluids and pain reduced no avail. Patient states she now has spasm when she tries to urinate. Patient states she is able to empty her bladder. No vaginal discharge, itching or odor. Patient states she is not . No other concerns. Patient's medications reviewed this visit. - History of Current Complaint Chief Complaint: UCGU Stated Complaint: URINARY COMPLAINT Time Seen by Provider: 11/05/18 07:55 Hx Obtained From: Patient Hx Last Menstrual Period: 10/28/18 Onset/Duration: Gradual Onset Timing: Constant Severity Initially: Mild Severity Currently: None Pain Intensity: 0 Location: Suprapubic Radiates: No Character: Burning Allergies/Adverse Reactions: Allergies Allergy/AdvReac Type Severity Reaction Status Date / Time metoprolol [From Lopressor] Allergy HYPOTENSIVE Verified 11/05/18 07:41 AND SYNCOPAL Penicillins Allergy Hives Verified 11/05/18 07:41 STATINS Allergy SEVERE Uncoded 11/05/18 07:41 JOINT PAIN Home Medications: Home Medications EPINEPHrine [Epipen] 0.3 mg IJ ONCE PRN 11/05/18 [History Confirmed 11/05/18] Multivit,Min/Folic Acid/Sdi023 [Estroven Maximum Strength] 1 tab PO DAILY [History Confirmed 11/05/18] Nitroglycerin 0.4 mg SL Q15M PRN 11/05/18 [History Confirmed 11/05/18] [place]-3 Fatty Acids (Nf) [Fish Oil (NF)] 1,000 mg PO DAILY 11/05/18 [History Confirmed 11/05/18] PMH/Surg Hx/FS Hx/Imm Hx Previously Healthy: Yes Endocrine History: Dyslipidemia Cardiovascular History: Cardiac Disease, Hypertension - Surgical History Surgical History: Yes Surgery Procedure, Year, and Place: LASIK. APPENDIX. venoplasty in the lower legs-NO STENTS. CARDIAC STENT - 01/2017 - Family History Known Family History: Positive: Cardiac Disease, Diabetes, Other - breast CA - Social History Occupation: Employed Full-time Lives: With Family Alcohol Use: Daily Alcohol Amount: wine Substance Use Type: None Smoking Status (MU): Former Smoker Have You Smoked in the Last Year: No When Did the Patient Quit Smoking/Using Tobacco: 25 years ago - Immunization History Most Recent Influenza Vaccination: 07/2016 Most Recent Pneumonia Vaccination: NEVER Review of Systems All Other Systems Reviewed And Are Negative: Yes Constitutional: Positive: Negative Genitourinary: Positive: Dysuria, Frequency, Urgency. Negative: Vaginal/Penile Discharge, Vaginal/Penile Pain, Vaginal/Penile Tenderness Physical Exam - Summary Physical Exam Summary: Vital Signs Reviewed: Yes A+Ox3, no distress Eyes: Conjunctiva Clear, NASREEN. EOM intact and full ENT: Hearing grossly normal TM x 2 clear, mmoist, uvula midline, no exudate, no erythema Neck: Positive: Supple Respiratory: Positive: No respiratory distress, No accessory muscle use + CTA throughout no w/r Cardiovascular: RRR nl s1, s2 no m/r CBT <2 sec abd soft + BS mild suprapubic no CVA no guarding, no distension Musculoskeletal Exam: STACY x 4 without difficulty Strength Intact, ROM Intact Neurological: Positive: Alert, + sensation throughout Psychological: Positive: Normal Response To Family Skin: Positive: no rash, no ecchymosis Triage Information Reviewed: Yes Vital Signs: Initial Vital Signs Temp 97 F 11/05/18 07:41 Pulse 63 11/05/18 07:41 Resp 18 11/05/18 07:41 BP 135/93 11/05/18 07:41 Pulse Ox 100 11/05/18 07:41 Abd Pain Female Course/Dx - Course Course Of Treatment: Patient presents to urgent care with 2 weeks progressive urinary frequency, urgency, and burning. Patient has been taking Tylenol intermittently with little improvement. Patient states she's also been drinking lots a lot of cranberry juice. Patient states now tonight she has significant spasm. Patient without any vaginal discharge itching or odor. She RN consistent with UTI. Review last culture 2015 was pansensitive. Patient is allergic to penicillin. We'll start patient on Macrobid. Pyridium. Patient states she does get yeast infections with antibiotics so will prescribe Pyridium as needed. Patient discussed culture plan. Patient comfortable in agreement. return precautions discussed - Differential Dx/Diagnosis Provider Diagnosis: UTI (urinary tract infection) Discharge - Sign-Out/Discharge Documenting (check all that apply): Patient Departure All imaging exams completed and their final reports reviewed: No Studies - Discharge Plan Condition: Stable Disposition: HOME Prescriptions: Fluconazole [Diflucan 150 MG (NF)] 150 mg PO ONCE PRN #1 tab PRN Reason: vaginal yeast infection Nitrofurantoin Monohyd/M-Cryst [Macrobid 100 mg Capsule] 100 mg PO BID #14 cap Phenazopyridine TAB* [Pyridium 100 mg TAB*] 100 mg PO TID PRN #9 tab PRN Reason: burning with urination Patient Education Materials: Urinary Tract Infection in Women (ED) Referrals: Doni Saucedo MD [Primary Care Provider] - Additional Instructions: - stay well hydrated - drink plenty of non-alcoholic, non caffinated beverages - your urine will be further tested - if you require any changes to your treatment, we will contact you - this usually take 2 days - Contact your primary doctor to arrange a follow-up appointment next week. Contact your doctor or return with questions or concerns - Take your antibiotics exactly as prescribed until gone - Take pyridium as prescribed for discomfort. This will make your urine blaze orange - this is normal - Okay to alternate ibuprofen (Advil, Motrin) and Tylenol every 3 hours for pain. Take with food - you have been given the 1 time treatment medication for vaginal yeast infection related to antibiotics - okay to take as needed - Call your doctor or return with questions or concerns - Billing Disposition and Condition Condition: STABLE Disposition: Home
--- NOTE | 2018-11-07 07:09 | UC ---
- Progress Note Progress Note: Prelim culture with proteus mirabilis May need to change antibiotic awaiting sensitivity Course/Dx - Diagnoses Provider Diagnoses: UTI (urinary tract infection) Discharge - Sign-Out/Discharge Documenting (check all that apply): Post-Discharge Follow Up All imaging exams completed and their final reports reviewed: No Studies - Discharge Plan Condition: Stable Disposition: HOME Prescriptions: Fluconazole [Diflucan 150 MG (NF)] 150 mg PO ONCE PRN #1 tab PRN Reason: vaginal yeast infection Nitrofurantoin Monohyd/M-Cryst [Macrobid 100 mg Capsule] 100 mg PO BID #14 cap Phenazopyridine TAB* [Pyridium 100 mg TAB*] 100 mg PO TID PRN #9 tab PRN Reason: burning with urination Patient Education Materials: Urinary Tract Infection in Women (ED) Referrals: Doni Saucedo MD [Primary Care Provider] - Additional Instructions: - stay well hydrated - drink plenty of non-alcoholic, non caffinated beverages - your urine will be further tested - if you require any changes to your treatment, we will contact you - this usually take 2 days - Contact your primary doctor to arrange a follow-up appointment next week. Contact your doctor or return with questions or concerns - Take your antibiotics exactly as prescribed until gone - Take pyridium as prescribed for discomfort. This will make your urine blaze orange - this is normal - Okay to alternate ibuprofen (Advil, Motrin) and Tylenol every 3 hours for pain. Take with food - you have been given the 1 time treatment medication for vaginal yeast infection related to antibiotics - okay to take as needed - Call your doctor or return with questions or concerns - Billing Disposition and Condition Condition: STABLE Disposition: Home
--- NOTE | 2018-11-08 07:20 | UC ---
- Progress Note Progress Note: please notify pt we should change antibiotic stop macrobid start bactrim DS BID (#10) Course/Dx - Diagnoses Provider Diagnoses: UTI (urinary tract infection) Discharge - Sign-Out/Discharge Documenting (check all that apply): Post-Discharge Follow Up All imaging exams completed and their final reports reviewed: No Studies - Discharge Plan Condition: Stable Disposition: HOME Prescriptions: Fluconazole [Diflucan 150 MG (NF)] 150 mg PO ONCE PRN #1 tab PRN Reason: vaginal yeast infection Nitrofurantoin Monohyd/M-Cryst [Macrobid 100 mg Capsule] 100 mg PO BID #14 cap Phenazopyridine TAB* [Pyridium 100 mg TAB*] 100 mg PO TID PRN #9 tab PRN Reason: burning with urination Patient Education Materials: Urinary Tract Infection in Women (ED) Referrals: Doni Saucedo MD [Primary Care Provider] - Additional Instructions: - stay well hydrated - drink plenty of non-alcoholic, non caffinated beverages - your urine will be further tested - if you require any changes to your treatment, we will contact you - this usually take 2 days - Contact your primary doctor to arrange a follow-up appointment next week. Contact your doctor or return with questions or concerns - Take your antibiotics exactly as prescribed until gone - Take pyridium as prescribed for discomfort. This will make your urine blaze orange - this is normal - Okay to alternate ibuprofen (Advil, Motrin) and Tylenol every 3 hours for pain. Take with food - you have been given the 1 time treatment medication for vaginal yeast infection related to antibiotics - okay to take as needed - Call your doctor or return with questions or concerns - Billing Disposition and Condition Condition: STABLE Disposition: Home
== END 2018-11-05 08:12 | disposition home or self-care (01) ==
LOC: UCCORT 07:32
DX: N39.0 Urinary tract infection, site not specified (principal); I10 Essential (primary) hypertension; Z88.8 Allergy status to other drugs, medicaments and biological substances; Z88.0 Allergy status to penicillin; Z79.899 Other long term (current) drug therapy
CPT/HCPCS: 81003; 87077; 87086; 87186; 99212; G0463

== ENCOUNTER 2019-03-09 16:40 | Emergency (ER) | payer BC ==
--- OUTSIDE RECORDS SUMMARY | 2019-03-09 16:51 | XMS REPORT | Continuity of Care Document ---
:1970 External Reference #:[id number] Author Name Desirae Frye Care Team Providers Name Role Phone Doni Saucedo MD Primary Care Physician Unavailable Payers Date Identification Numbers Payment Provider Subscriber Effective: 2016 Policy Number: [id number] BS Facets Negro Gutierrez PayID: [id number] [address] [address] [place] [address] Effective: 2016 Policy Number: [id number] BS Facets Tad Nona PayID: [id number] [place] [address] Onset: 2014 Policy Number: [id number] TST Negro Gutierrez PayID: [id number] [address] [place] [address] Problems Active Problems Provider Date Acute myocardial infarction of Mavis Quinones MD, [facility], Onset: 01/22/2017 inferior wall FSCAI Congenital pes cavus Phillip Abbott MD Onset: 02/23/2018 Peroneal tendinitis, right leg Phillip Abbott MD Onset: 02/23/2018 Chest pain BRYN Royal Onset: 02/27/2018 Arteriosclerosis of coronary artery BRYN Royal Onset: 02/27/2018 bypass graft Hypo-osmolality and or hyponatremia BRYN Royal Onset: 02/27/2018 Asthma without status asthmaticus BRYN Royal Onset: 02/27/2018 Old myocardial infarction Mavis Quinones MD, [facility], Onset: 03/18/2018 FSCAI Injury of shoulder region Steve Lisa MD Onset: 04/08/2018 Localized, secondary osteoarthritis of Steve Lisa MD Onset: 04/08/2018 the shoulder region Strain of muscle(s) and tendon(s) of Steve Lisa MD Onset: 04/08/2018 the rotator cuff of left shoulder, subsequent encounter Arthralgia of the upper arm Steve Lisa MD Onset: 04/08/2018 Family History Date Family Member(s) Observation Comments General Diabetes General Cancer Father alive and well in 70's, no cardiac issues Mother alive in her 70's, has lymphoma and alzheimer's Siblings 2 1 brother and 1 sister alive and well with no cardiac issues Social History Type Date Description Comments Sex Unknown Marital Status Lives 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 Tobacco Use Start: Unknown End: Former Cigarette Smoker Unknown Smoking Status Reviewed: 03/03/19 Former Cigarette Smoker ETOH Use Consumes 1 glass of wine per day Tobacco Use Start: Unknown End: Patient is a former Unknown smoker Recreational Drug Use Denies Drug Use Exercise Type/Frequency Exercises regularly 2 times per week, weights and aerobics Allergies, Adverse Reactions, Alerts Active Allergies Reaction Severity Comments Date Penicillin Urticaria 01/22/2017 Metoprolol blackouts 03/18/2018 Atorvastatin myalgia 03/18/2018 Inactive Allergies NKDA 11/02/2014 Medications Active Medications SIG Qnty Indications Ordering Date Provider Potassium Chloride ER 1 by mouth 90tabs E87.6 Cheko Ramírze 02/23/2019 20Meq every day Jones Rodriguez Tablets ER Hydrochlorothiazide 1 tablet by 90tabs Mavis Valentine 03/01/2018 25mg Tablets mouth daily MD Joni, FACC, [facility] Nitroglycerin 1 sl q5mins x3 25tabs Lisa Nuñez, 01/17/2017 0.4mg Tablets Sub as needed for N.P. chest pain Epipen 2-Ryan use as directed Unknown 0.3mg/0.3ML Solution Auto-Inject Estroven daily Unknown Fish Oil Double Strength 1 gel cap daily Unknown With [place] 3 by mouth 1200mg Capsules Magnesium Oxide 1 by mouth Unknown 400mg Tablets every day Cranberry Plus Vitamin C one cap PO bid Unknown [id number]-mg-Unit Capsules Vitamin C-Trinity Hips daily at hs Unknown 1000mg Tablets Vitamin D3 1 by mouth Unknown 5000Unit Tablets every day at hs Allergy Shot bi weekly or Unknown monthly as directed Aspir-Low 1 by mouth Unknown 81mg Tablets DR every day Ventolin HFA 2 puffs by Unknown 108(90Base) mcg/Act mouth four Aerosol times a day as needed Mometasone Furoate spray 2 sprays Unknown 50mcg/Act into each Suspension nostril one time daily Singulair one tab daily Unknown 10mg PO at hs History Medications Atorvastatin Calcium 1 by mouth every 90tabs Marcis T. 01/17/2017 - day MD Joni, 02/12/2017 80mg Tablets FACC, FSCAI Metoprolol Tartrate 1/2 tab by mouth 180tabs Marcis T. 01/17/2017 - twice a day MD Joni, 06/04/2017 50mg Tablets FACC, COCOAI Effient 1 by mouth every 90tabs Marcis T. 01/17/2017 - 10mg Tablets day MD Joni, 02/23/2019 FACC, FSCAI Hydrocodone-Acetamino as directed Unknown - phen 03/19/2016 Breo Ellipta one inhalation Unknown - daily 07/04/2018 200-25mcg/Inh Aerosol Epipen 2-Ryan use as directed Unknown - 02/22/2019 0.3mg/0.3ML Solution Auto-Inject Potassium once a day Unknown - 99mg Tablets 03/02/2019 Medications Administered in Office Medication SIG Qnty Indications Ordering Provider Date Technetium TC 99M Qutaybeh S. Maghaydah, 03/03/2019 Tetrofosmin, Per Unit Dose Up M.D. To 40 Millicuries Injection Technetium TC 99M Qutaybeh S. Maghaydah, 03/03/2019 Tetrofosmin, Per Unit Dose Up M.D. To 40 Millicuries Injection Triamcinolone (Kenalog) Steve Lisa MD 10/12/2018 Injection Triamcinolone (Kenalog) Steve Lisa MD 04/08/2018 Injection Vital Signs Date Vital Result Comment 03/03/2019 2:24pm Height 66.5 inches 5'6.50" Weight 161.00 lb BP Systolic 134 mmHg BP Diastolic 82 mmHg Respiratory Rate 18 /min Body Temperature 98.0 F Pain Level 7 BMI (Body Mass Index) 25.6 kg/m2 02/23/2019 2:46pm Height 66.5 inches 5'6.50" Weight 161.25 lb without shoes Heart Rate 68 /min BP Systolic Sitting 124 mmHg left arm BP Diastolic Sitting 82 mmHg left arm BP Systolic Standing 120 mmHg left arm BP Diastolic Standing 76 mmHg left arm BMI (Body Mass Index) 25.6 kg/m2 Ejection Fraction 55-60% Echocardiogram 02/28/18 10/12/2018 2:16pm Height 66.5 inches 5'6.50" Weight 176.00 lb BP Systolic 128 mmHg BP Diastolic 76 mmHg Respiratory Rate 18 /min Pain Level 5 BMI (Body Mass Index) 28.0 kg/m2 09/22/2018 10:14am Height 66.5 inches 5'6.50" Weight 163.25 lb without shoes Heart Rate 72 /min BP Systolic Sitting 126 mmHg left arm BP Diastolic Sitting 82 mmHg left arm BMI (Body Mass Index) 26.0 kg/m2 Ejection Fraction 55-60% Echocardiogram 02/28/18 07/05/2018 3:35pm Height 66.5 inches 5'6.50" Heart Rate 68 /min BP Systolic Sitting 120 mmHg BP Diastolic Sitting 80 mmHg Respiratory Rate 16 /min Body Temperature 96.9 F Pain Level 0 05/04/2018 2:50pm Height 66.5 inches 5'6.50" Weight 176.00 lb BP Systolic 128 mmHg BP Diastolic 78 mmHg Respiratory Rate 18 /min Pain Level 2 BMI (Body Mass Index) 28.0 kg/m2 04/27/2018 1:10pm Height 66.5 inches 5'6.50" Weight 176.00 lb BP Systolic 128 mmHg BP Diastolic 70 mmHg Respiratory Rate 18 /min Pain Level 2 BMI (Body Mass Index) 28.0 kg/m2 04/08/2018 9:01am Height 66.5 inches 5'6.50" Weight 169.00 lb Heart Rate 72 /min BP Systolic Sitting 110 mmHg BP Diastolic Sitting 60 mmHg Respiratory Rate 16 /min Pain Level 4 BMI (Body Mass Index) 26.9 kg/m2 03/18/2018 8:30am Height 66.5 inches 5'6.50" Weight 169.00 lb w/ o shoes Heart Rate 66 /min BP Systolic Sitting 108 mmHg lue lg cuff BP Diastolic Sitting 62 mmHg lue lg cuff BP Systolic Standing 112 mmHg lue lg cuff BP Diastolic Standing 74 mmHg lue lg cuff Respiratory Rate 18 /min BMI (Body Mass Index) 26.9 kg/m2 Ejection Fraction 55-60% echo 02/28/18 02/23/2018 3:35pm Height 66.5 inches 5'6.50" Weight 176.00 lb Heart Rate 64 /min Respiratory Rate 16 /min Body Temperature 97.4 F Pain Level 3 BMI (Body Mass Index) 28.0 kg/m2 2017 2:58pm Height 66.5 inches 5'6.50" Weight 176.00 lb w/o shoes Heart Rate 80 /min BP Systolic Sitting 138 mmHg lue reg cuff BP Diastolic Sitting 82 mmHg lue reg cuff BP Systolic Standing 138 mmHg lue reg cuff BP Diastolic Standing 90 mmHg lue reg cuff Respiratory Rate 18 /min BMI (Body Mass Index) 28.0 kg/m2 Ejection Fraction no echo/ s 06/04/2017 9:39am Height 66.5 inches 5'6.50" Weight 176.00 lb Heart Rate 70 /min BP Systolic 128 mmHg lue reg cuff BP Diastolic 88 mmHg lue reg cuff BP Systolic Sitting 130 mmHg lue reg cuff BP Diastolic Sitting 90 mmHg lue reg cuff Respiratory Rate 18 /min BMI (Body Mass Index) 28.0 kg/m2 02/19/2017 8:03am Height 66.5 inches 5'6.50" Weight 180.00 lb w/o shoes Heart Rate 56 /min reg BP Systolic Sitting 110 mmHg Rue, reg cuff BP Diastolic Sitting 70 mmHg Rue, reg cuff Respiratory Rate 16 /min BMI (Body Mass Index) 28.6 kg/m2 Ejection Fraction 60% as of 01/16/17 cath 01/22/2017 10:51am Height 66.5 inches 5'6.50" Weight 183.00 lb w/o shoes Heart Rate 62 /min reg BP Systolic Sitting 100 mmHg Lue, reg cuff BP Diastolic Sitting 60 mmHg Lue, reg cuff Respiratory Rate 16 /min BMI (Body Mass Index) 29.1 kg/m2 01/08/2015 8:00am Height 67 inches 5'7" Weight 185.00 lb Heart Rate 76 /min BP Systolic 111 mmHg BP Diastolic 76 mmHg Pain Level 1 BMI (Body Mass Index) 29.0 kg/m2 11/27/2014 3:58pm Height 67 inches 5'7" Weight 185.00 lb Pain Level 3 BMI (Body Mass Index) 29.0 kg/m2 11/02/2014 10:00am Height 67 inches 5'7" Weight 185.00 lb Heart Rate 76 /min BP Systolic 137 mmHg BP Diastolic 95 mmHg Pain Level 3 BMI (Body Mass Index) 29.0 kg/m2 Results Test Date Facility Test Result H/L Range Note Lipid Profile 02/12/2019 [facility] Triglycerides 60 mg/dL 1 (Trig/Chol/HDL) [address] [place] [address] [phone] Cholesterol 171 mg/dL 2 HDL Cholesterol 62.0 mg/dL 3 LDL Cholesterol 97 mg/dL 4 Comp Metabolic Panel 02/12/2019 [facility] Sodium 138 mmol/L N 135-[address] [place] [address] [phone] Potassium 3.4 mmol/L Low 3.5-5.0 Chloride 102 mmol/L N 101-111 Co2 Carbon Dioxide 31 mmol/L N 22-32 Anion Gap 5 mmol/L N 2-11 Glucose 92 mg/dL N 70-100 Blood Urea Nitrogen 16 mg/dL N 6-24 Creatinine 0.83 mg/dL N 0.51-0.95 BUN/Creatinine Ratio 19.3 N 8-20 Calcium 9.3 mg/dL N 8.6-10.3 Total Protein 6.5 g/dL N 6.4-8.9 Albumin 4.3 g/dL N 3.2-5.2 Globulin 2.2 g/dL N 2-4 Albumin/Globulin Ratio 2.0 N 1-3 Total Bilirubin 1.40 mg/dL High 0.2-1.0 Alkaline Phosphatase 39 U/L N 34-104 Alt 17 U/L N 7-52 Ast 21 U/L N 13-39 Egfr Non- 72.8 >60 Egfr 88.0 >60 5 Lipid Panel - 02/12/2019 [facility] Creatine 178 U/L N 10-[address] Kinase(CK) [place] [address] [phone] CBC Auto Diff 02/12/2019 [facility] White Blood Count 5.7 N 3.5-10.[address] 10^3/[place] [address] [phone] Red Blood Count 3.91 10^6/uL N 3.70-4.87 Hemoglobin 12.2 g/dL N 12.0-16.0 Hematocrit 36 % N 35-47 Mean Corpuscular Volume 93 fL N 80-97 Mean Corpuscular Hemoglobin 31 pg N 27-31 Mean Corpuscular HGB Conc 34 g/dL N 31-36 Red Cell Distribution Width 13 % N 10.5-15 Platelet Count 182 10^3/uL N 150-450 Mean Platelet Volume 9.1 fL N 7.4-10.4 Abs Neutrophils 3.6 10^3/uL N 1.5-7.7 Abs Lymphocytes 1.5 10^3/uL N 1.0-4.8 Abs Monocytes 0.4 10^3/uL N 0-0.8 Abs Eosinophils 0.1 10^3/uL N 0-0.6 Abs Basophils 0.0 10^3/uL N 0-0.2 Abs Nucleated RBC 0.0 10^3/uL Granulocyte % 64.0 % Lymphocyte % 25.7 % Monocyte % 7.2 % Eosinophil % 2.5 % Basophil % 0.6 % Nucleated Red Blood Cells % 0.0 CBC Auto Diff 02/19/2018 [facility] White Blood 5.5 10^3/uL N 3.5-10.[address] [place] [address] [phone] Red Blood Count 4.36 10^6/uL N 4.0-5.4 Hemoglobin 13.0 g/dL N 12.0-16.0 Hematocrit 39 % N 35-47 Mean Corpuscular Volume 89 fL N 80-97 Mean Corpuscular Hemoglobin 30 pg N 27-31 Mean Corpuscular HGB Conc 33 g/dL N 31-36 Red Cell Distribution Width 13 % N 10.5-15 Platelet Count 201 10^3/uL N 150-450 Mean Platelet Volume 8.3 um3 N 7.4-10.4 Abs Neutrophils 3.0 10^3/uL N 1.5-7.7 Abs Lymphocytes 1.6 10^3/uL N 1.0-4.8 Abs Monocytes 0.5 10^3/uL N 0-0.8 Abs Eosinophils 0.3 10^3/uL N 0-0.6 Abs Basophils 0 10^3/uL N 0-0.2 Abs Nucleated RBC 0 10^3/uL Granulocyte % 54.7 % N 38-83 Lymphocyte % 29.9 % N 25-47 Monocyte % 9.7 % High 0-7 Eosinophil % 5.3 % N 0-6 Basophil % 0.4 % N 0-2 Nucleated Red Blood Cells % 0 Comp Metabolic Panel 02/19/2018 [facility] Sodium 139 mmol/L N 139-[address] [place] [address] [phone] Potassium 3.7 mmol/L N 3.5-5.0 Chloride 101 mmol/L N 101-111 Co2 Carbon Dioxide 31 mmol/L N 22-32 Anion Gap 7 mmol/L N 2-11 Glucose 106 mg/dL High 70-100 Blood Urea Nitrogen 16 mg/dL N 6-24 Creatinine 0.88 mg/dL N 0.51-0.95 BUN/Creatinine Ratio 18.2 N 8-20 Calcium 9.5 mg/dL N 8.6-10.3 Total Protein 6.9 g/dL N 6.4-8.9 Albumin 4.4 g/dL N 3.2-5.2 Globulin 2.5 g/dL N 2-4 Albumin/Globulin Ratio 1.8 N 1-3 Total Bilirubin 1.00 mg/dL N 0.2-1.0 Alkaline Phosphatase 57 U/L N 34-104 Alt 18 U/L N 7-52 Ast 23 U/L N 13-39 Egfr Non- 68.3 >60 Egfr 87.8 >60 6 Lipid Profile 02/19/2018 [facility] Triglycerides 69 mg/dL 7 (Trig/Chol/HDL) [address] [place] [address] [phone] Cholesterol 182 mg/dL 8 HDL Cholesterol 54.1 mg/dL 9 LDL Cholesterol 114 mg/dL 10 Laboratory test 02/19/2018 [facility] TSH (Thyroid 1.37 mcIU/mL N 0.34-5.[address] Stim [place]) [place] [address] [phone] 1 Desirable: <150 Borderline High: 150-199 High: 200-499 Very High: >500 2 Desirable: <200 Borderline High: 200-239 High: >239 3 Low: <40 Desirable: 40-60 High: >60 4 Desirable: <100 Near Optimal: 100-129 Borderline High: 130-159 High: 160-189 Very High: >189 5 Because ethnic data is not always readily available, this report includes an eGFR for both -Americans and non- Americans. The National Kidney Disease Education Program (NKDEP) does not endorse the use of the MDRD equation for patients that are not between the ages of 18 and 70, are , have extremes of body size, muscle mass, or nutritional status, or are non- or non-. According to the National Kidney Foundation, irrespective of diagnosis, the stage of the disease is based on the level of kidney function: Stage Description GFR(mL/min/1.73 m(2)) 1 Kidney damage with normal or decreased GFR 90 2 Kidney damage with mild decrease in GFR 60-89 3 Moderate decrease in GFR 30-59 4 Severe decrease in GFR 15-29 5 Kidney failure <15 (or dialysis) 6 Because ethnic data is not always readily available, this report includes an eGFR for both -Americans and non- Americans. The National Kidney Disease Education Program (NKDEP) does not endorse the use of the MDRD equation for patients that are not between the ages of 18 and 70, are , have extremes of body size, muscle mass, or nutritional status, or are non- or non-. According to the National Kidney Foundation, irrespective of diagnosis, the stage of the disease is based on the level of kidney function: Stage Description GFR(mL/min/1.73 m(2)) 1 Kidney damage with normal or decreased GFR 90 2 Kidney damage with mild decrease in GFR 60-89 3 Moderate decrease in GFR 30-59 4 Severe decrease in GFR 15-29 5 Kidney failure <15 (or dialysis) 7 Desirable: <150 Borderline High: 150-199 High: 200-499 Very High: >500 8 Desirable: <200 Borderline High: 200-239 High: >239 9 Low: <40 Desirable: 40-60 High: >60 10 Desirable: <100 Near Optimal: 100-129 Borderline High: 130-159 High: 160-189 Very High: >189 Procedures Date Code Description Status 03/03/2019 80540 Treadmill Interp/Report Only Completed 03/03/2019 07047 Stress Test Supervsn W/Out I/R Completed 03/03/2019 40709 Stress Test Completed 03/03/2019 19517 EKG Tracing & Interpretation Completed 02/23/2019 35352 EKG Tracing & Interpretation Completed 10/12/2018 30092 Inject/Drain Joint/Bursa Major W/O US Completed 09/22/2018 65315 EKG Tracing & Interpretation Completed 04/08/2018 96966 Inject/Drain Joint/Bursa Major W/O US Completed 03/01/2018 25047 Treadmill Interp/Report Only Completed 03/01/2018 85895 Stress Test Supervsn W/Out I/R Completed 02/28/2018 19266 EKG, Interpretation Only Completed 02/28/2018 48259 ECHO Transthorasic Realtime 2D W Doppler & Color Flow Hosp Completed 06/04/2017 57450 EKG Tracing & Interpretation Completed 02/19/2017 83506 EKG Tracing & Interpretation Completed 01/22/2017 08220 EKG Tracing & Interpretation Completed 01/17/2017 96669 EKG, Interpretation Only Completed 01/16/2017 05016 EKG, Interpretation Only Completed 01/15/2017 33878 Left Heart Cath. Incl S/I Coronaries, Angio S/I V Gram If Completed Done 01/15/2017 11651 EKG, Interpretation Only Completed 01/15/2017 10601 Revascularization Acute Total/Subtotal Occlusion Completed Encounters Type Date Location Provider Dx Diagnosis Office Visit 02/23/2019 [facility] Cheko Ramírez R07.9 Chest pain, 3:00p Jones Rodriguez unspecified I25.2 Old myocardial infarction E87.6 Hypokalemia I25.10 Athscl heart disease of [place] coronary artery w/o ang pctrs Office Visit 10/12/2018 [facility] Steve Lisa, S46.112D Strain of 2:30p Services Of MD roman/fasc/justo long [facility]. 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 unspecified I25.2 Old myocardial infarction I25.810 Atherosclerosis of CABG w/o angina pectoris Office Visit 07/05/2018 3:30p Orthopedic Phillip Abbott, M76.71 Peroneal Services Of MD adams, right C.M.A. 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 leg Q66.7 Congenital pes cavus Office Visit 04/08/2018 9:00a Orthopedic Steve Lisa, S46.012D Strain of Services Of MD magaña the [facility]. 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, left shoulder M25.522 Pain in left elbow M25.512 Pain in left shoulder Office Visit 03/18/2018 8:40a [facility] Mavis Valentine I25.2 Old myocardial Of [facility] MD Joni, infarction FACC, FSCAI Office Visit 03/01/2018 2:38p [facility] Sanaz R07.9 Chest pain, Assoc,pc Muriel, OZIEL unspecified Hospitalists I25.810 Atherosclerosis of CABG w/o angina pectoris J45.909 Unspecified asthma, uncomplicated Office Visit 03/01/2018 3:12p [facility] Alin Lynn I25.10 Athscl heart Of [facility] Jones Peña disease of [place] coronary artery w/o ang pctrs R07.9 Chest pain, unspecified Office Visit 02/28/2018 2:22p [facility] Cheko Ramírez R07.9 Chest pain, Jones Rodriguez unspecified I25.2 Old myocardial infarction R94.31 Abnormal electrocardiogram [ECG] [EKG] Office Visit 02/28/2018 [facility] Latrice R07.9 Chest pain, 2:37p Assoc,pc OZIEL Duggan unspecified Hospitalists I25.810 Atherosclerosis of CABG w/o angina pectoris Office Visit 02/27/2018 2:34p [facility] Carlo R07.9 Chest pain, Assoc,pc BRYN Hernandez unspecified Hospitalists I25.810 Atherosclerosis of CABG w/o angina pectoris E87.1 Hypo-osmolality and hyponatremia J45.909 Unspecified asthma, uncomplicated Office Visit 02/23/2018 3:15p Orthopedic Phillipgracie Abbott M76.71 Peroneal Services Of MD adams, right C.M.A. leg Q66.7 Congenital pes cavus Office Visit 2017 3:00p [facility] Mavis Valentine I21.11 Stemi involving Of [employer] Quinones MD, right coronary FACC, FSCAI artery Office Visit 06/04/2017 9:40a [facility] Mavis TBib I21.11 Stemi involving Of [employer] Quinones MD, right coronary FACC, FSCAI artery R07.89 Other chest pain Office Visit 02/19/2017 8:20a [facility] Mavis T. R07.89 Other chest Of [employer] [facility] Quinones MD, pain FACC, FSCAI I21.11 Stemi involving right coronary artery Office Visit 01/22/2017 11:00a [facility] Mavis Valentine I21.11 Stemi involving Of [employer] Quinones MD, right coronary FACC, FSCAI artery Office Visit 01/17/2017 10:37a [facility] Mavis TBib I21.11 Stemi involving Of [employer] [facility] Quinones MD, right coronary FACC, FSCAI artery Office Visit 01/16/2017 12:00p [facility] Mavis Valentine I21.11 Stemi involving Of [employer] [facility] Quinnoes MD, right coronary FACC, FSCAI artery Office Visit 01/15/2017 10:30a [facility] Mavis Valentine I21.11 Stemi involving Of [employer] [facility] Quinones MD, right coronary FACC, FSCAI artery Office Visit 01/08/2015 8:15a Orthopedic Janiya Britton, 729.5 Pain In Limb Services Of M.Shane C.MCharla 729.5 Pain In Limb Office Visit 11/27/2014 2:45p Orthopedic Services Janiya Britton 729.5 Pain In Limb Of C.Haley Goldman Office Visit 11/02/2014 9:30a Orthopedic Services Janiya Britton 729.5 Pain In Limb Of C.M.Beba. Jones Plan of Treatment Future Appointment(s):04/01/2019 8:30 am - Steve Lisa MD at [facility]05/31/2019 3:30 pm - Lisa Nuñez N.P. at [facility]03/21/2019 9:30 am - Steve Lisa MD at [facility]03/03/2019 - Steve Lisa, MDS46.112D Strain of muscle, fascia and tendon of long head of biceps,S46.012D Strain of muscle(s) and tendon(s) of the rotator cuff of lefFollow up:Follow up: 10-14 days post op Set up neurosurg appt
--- OUTSIDE RECORDS SUMMARY | 2019-03-09 16:51 | XMS REPORT | Continuity of Care Document ---
:1970 External Reference #:[id number] Author Name Desirae Frye Care Team Providers Name Role Phone Doni Saucedo MD Primary Care Physician Unavailable Payers Date Identification Numbers Payment Provider Subscriber Effective: 2016 Policy Number: [id number] [employer] Negro Gutierrez PayID: [id number] [address] [address] [place] [address] Effective: 2016 Policy Number: [id number] [employer]ets Tad Nona PayID: [id number] [place] [address] Onset: 2014 Policy Number: [id number] TST Negro Gutierrez PayID: [id number] [address] [place] [address] Problems Active Problems Provider Date Acute myocardial infarction of Mavis Quinones MD, [facility], Onset: 01/22/2017 inferior wall FSCAI Congenital pes cavus Phillip Abbott MD Onset: 02/23/2018 Peroneal tendinitis, right leg Phillip Abbott MD Onset: 02/23/2018 Chest pain BRYN Royal Onset: 02/27/2018 Arteriosclerosis of coronary artery BRYN Royal Onset: 02/27/2018 bypass graft Hypo-osmolality and or hyponatremia BRYN Royal Onset: 02/27/2018 Asthma without status asthmaticus BRYN Royal Onset: 02/27/2018 Old myocardial infarction Mavis Quinones MD, [facility], Onset: 03/18/2018 FSCAI Injury of shoulder region [...] ER 1 by mouth 90tabs E87.6 Cheko Ramírez 02/23/2019 20Meq every day Jones Rodriguez Tablets ER Hydrochlorothiazide 1 tablet by 90tabs Mavis Valentine 03/01/2018 25mg Tablets mouth daily [place] Joni, [facility] [facility] Nitroglycerin 1 sl q5mins x3 25tabs Lisa Nuñez, 01/17/2017 0.4mg Tablets Sub as needed for N.P. chest pain Epipen 2-Ryan use as directed Unknown 0.3mg/0.3ML Solution Auto-Inject Estroven daily Unknown Fish Oil Double Strength 1 gel cap daily Unknown With [place] 3 by mouth 1200mg Capsules Magnesium Oxide 1 by mouth Unknown 400mg Tablets every day Cranberry Plus Vitamin C one cap PO bid Unknown 5540-32-0pp-mg-Unit Capsules Vitamin C-Trinity Hips daily at hs [...] Result H/L Range Note Lipid Profile 02/12/2019 [facility] Triglycerides 60 mg/dL 1 (Trig/Chol/HDL) [address] [place] [address] [phone] Cholesterol 171 mg/dL 2 HDL Cholesterol 62.0 mg/dL 3 LDL Cholesterol 97 mg/dL 4 Comp Metabolic Panel 02/12/2019 [facility] Sodium 138 mmol/L N 135-[address] [place] [address] [phone] Potassium 3.4 mmol/L Low 3.5-5.0 Chloride 102 [...] 88.0 >60 5 Lipid Panel - 02/12/2019 [facility] Creatine 178 U/L N 10-[address] Kinase(CK) [place] [address] [phone] CBC Auto Diff 02/12/2019 [facility] White Blood Count 5.7 N 3.5-10.[address] 10^3/[place] [address] [phone] Red Blood Count 3.91 10^6/uL N 3.70-4.87 [...] Cells % 0.0 CBC Auto Diff 02/19/2018 [facility] White Blood 5.5 10^3/uL N 3.5-10.[address] [place] [address] [phone] Red Blood Count 4.36 10^6/uL N 4.0-5.4 [...] Cells % 0 Comp Metabolic Panel 02/19/2018 [facility] Sodium 139 mmol/L N 139-[address] [place] [address] [phone] Potassium 3.7 mmol/L N 3.5-5.0 Chloride 101 [...] Egfr 87.8 >60 6 Lipid Profile 02/19/2018 [facility] Triglycerides 69 mg/dL 7 (Trig/Chol/HDL) [address] [place] [address] [phone] Cholesterol 182 mg/dL 8 HDL Cholesterol 54.1 mg/dL 9 LDL Cholesterol 114 mg/dL 10 Laboratory test 02/19/2018 [facility] TSH (Thyroid 1.37 mcIU/mL N 0.34-5.[address] Stim [place]orm) [place] [address] [phone] 1 Desirable: <150 Borderline High: 150-199 High: [...] >189 Procedures Date Code Description Status 03/03/2019 11686 Treadmill Interp/Report Only Completed 03/03/2019 14920 Stress Test Supervsn W/Out I/R Completed 03/03/2019 54668 Stress Test Completed 03/03/2019 49375 EKG Tracing & Interpretation Completed 02/23/2019 84150 EKG Tracing & Interpretation Completed 10/12/2018 18942 Inject/Drain Joint/Bursa Major W/O US Completed 09/22/2018 00485 EKG Tracing & Interpretation Completed 04/08/2018 61255 Inject/Drain Joint/Bursa Major W/O US Completed 03/01/2018 31792 Treadmill Interp/Report Only Completed 03/01/2018 33555 Stress Test Supervsn W/Out I/R Completed 02/28/2018 66195 EKG, Interpretation Only Completed 02/28/2018 78477 ECHO Transthorasic Realtime 2D W Doppler & Color Flow Hosp Completed 06/04/2017 48739 EKG Tracing & Interpretation Completed 02/19/2017 59685 EKG Tracing & Interpretation Completed 01/22/2017 01292 EKG Tracing & Interpretation Completed 01/17/2017 51289 EKG, Interpretation Only Completed 01/16/2017 14728 EKG, Interpretation Only Completed 01/15/2017 95505 Left Heart Cath. Incl S/I Coronaries, Angio S/I V Gram If Completed Done 01/15/2017 49406 EKG, Interpretation Only Completed 01/15/2017 80156 Revascularization Acute Total/Subtotal Occlusion Completed Encounters Type Date Location Provider Dx Diagnosis Office Visit 02/23/2019 [facility] Cheko Ramírez R07.9 Chest pain, 3:00p Jones Rodriguez unspecified I25.2 Old myocardial infarction E87.6 Hypokalemia I25.10 Athscl heart disease of [place] coronary artery w/o ang pctrs Office Visit 10/12/2018 [facility] Steve Lisa, S46.112D Strain of 2:30p Services Of MD roman/fasc/justo long [facility] 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, left shoulder Office Visit 09/22/2018 10:30a [facility] Lisa Paris R07.9 Chest pain, Joaquin [...] in left shoulder Office Visit 03/18/2018 8:40a [facility] Mavis Valentine I25.2 Old myocardial Of [facility] [place] Joni, infarction FACC, FSCAI Office Visit 03/01/2018 2:38p [facility] Sanaz R07.9 Chest pain, Assoc,pc Muriel, OZIEL unspecified Hospitalists I25.810 Atherosclerosis of CABG w/o angina pectoris J45.909 Unspecified asthma, uncomplicated Office Visit 03/01/2018 3:12p [facility] Alin Lynn I25.10 Athscl heart Of [facility] Jones Peña disease of [place] coronary artery w/o ang pctrs R07.9 Chest pain, unspecified Office Visit 02/28/2018 2:22p [facility] Cheko Ramírez R07.9 Chest pain, Jones Rodriguez unspecified I25.2 Old myocardial infarction R94.31 Abnormal electrocardiogram [ECG] [EKG] Office Visit 02/28/2018 [facility] Latrice R07.9 Chest pain, 2:37p Assoc,pc OZIEL Duggan unspecified Hospitalists I25.810 Atherosclerosis of CABG w/o angina pectoris Office Visit 02/27/2018 2:34p [facility] Carlo R07.9 Chest pain, Assoc,pc BRYN Hernandez unspecified Hospitalists I25.810 Atherosclerosis of CABG w/o angina pectoris E87.1 Hypo-osmolality and hyponatremia J45.909 Unspecified asthma, uncomplicated Office Visit 02/23/2018 3:15p [facility] Phillipgracie Abbott M76.71 Peroneal Services Of MD adams, right [facility] leg Q66.7 Congenital pes cavus Office Visit 2017 3:00p [facility] Mavis Valentine I21.11 Stemi involving Of [employer] Quinones MD, right coronary FACC, FSCAI artery Office Visit 06/04/2017 9:40a [facility] Mavis TBib I21.11 Stemi involving Of [employer] Quinones MD, right coronary FACC, FSCAI artery R07.89 Other chest pain Office Visit 02/19/2017 8:20a [facility] Mavis T. R07.89 Other chest Of [employer] Quinones MD, pain FACC, FSCAI I21.11 Stemi involving right coronary artery Office Visit 01/22/2017 11:00a [facility] Mavis Valentine I21.11 Stemi involving Of [employer] [facility] Quinones MD, right coronary FACC, FSCAI artery Office Visit 01/17/2017 10:37a [facility] Mavis TBib I21.11 Stemi involving Of [employer] [facility] Quinones MD, right coronary FACC, FSCAI artery Office Visit 01/16/2017 12:00p [facility] Mavis Valentine I21.11 Stemi involving Of [employer] [facility] Quinones MD, right coronary FACC, FSCAI artery Office Visit 01/15/2017 10:30a [facility] Mavis Valentine I21.11 Stemi involving Of [employer] [facility] Quinones MD, right coronary FACC, [...] 3:30 pm - Lisa Nuñez N.P. at [facility]03/21/2019 9:30 am - Steve Lisa MD at [facility]03/03/2019 - Steve Lisa, MDS46.112D Strain of muscle, fascia and tendon of long head of biceps,S46.012D Strain of muscle(s) and tendon(s) of the rotator cuff of lefFollow up:Follow up: 10-14 days post op Set up neurosurg appt
--- OUTSIDE RECORDS SUMMARY | 2019-03-09 16:51 | XMS REPORT | Continuity of Care Document ---
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 NEG Urobil 0.2 Nitrite NEG Leukocytes (Fma/CMC/[facility]) NEG Hyaline - /Lpf Granular - /Lpf WBC (a,[facility]) - RBC - Mucus - /Lpf Epith RARE /Lpf # Bacteria RARE /Hpf # Amorphous - /Lpf Crystals, Fluid (Fma/CMC/CTX) - Z#Comments - Laboratory test finding 02/27/2018 [facility] Lipase 29 U/L N 11.0-82.0 C Reactive Protein 1.07 mg/L N < 5.00 12 Troponin I 0.00 ng/mL <0.04 Comp Metabolic Panel 02/27/2018 [facility] Sodium 136 mmol/L N 135-145 Potassium 3.2 mmol/L Low 3.5-5.0 Chloride 102 mmol/L N 101-111 Co2 Carbon Dioxide 23 mmol/L N 22-32 Anion Gap 11 mmol/L N 2-11 Glucose 112 mg/dL High 70-100 Blood Urea Nitrogen 16 mg/dL N 6-24 Creatinine 0.92 mg/dL N 0.51-0.95 BUN/Creatinine Ratio 17.4 N 8-20 Calcium 9.7 mg/dL N 8.6-10.3 Total Protein 7.1 g/dL N 6.4-8.9 Albumin 4.3 g/dL N 3.2-5.2 Globulin 2.8 g/dL N 2-4 Albumin/Globulin Ratio 1.5 N 1-3 Total Bilirubin 1.20 mg/dL High 0.2-1.0 Alkaline Phosphatase 44 U/L N 34-104 Alt 15 U/L N 7-52 Ast 19 U/L N 13-39 Egfr Non- 64.9 >60 Egfr 83.4 >60 13 Laboratory test finding 02/27/2018 [facility] Partial Thrombo Time 30.1 seconds N 26.0-36.3 PTT D Dimer Quantitative < 200 ng/mL N Less Than 230 14 Lactic Acid 1.8 mmol/L N 0.5-2.0 15 Inr/Protime 02/27/2018 [facility] Inr 0.94 N 0.77-1.02 CBC Auto Diff 02/27/2018 [facility] White Blood Count 6.9 10^3/uL N 3.5-10.8 Red Blood Count 4.23 10^6/uL N 4.00-5.40 Hemoglobin 12.9 g/dL N 12.0-16.0 Hematocrit 37 % N 35-47 Mean Corpuscular Volume 88 fL N 80-97 Mean Corpuscular Hemoglobin 30 pg N 27-31 Mean Corpuscular HGB Conc 35 g/dL N 31-36 Red Cell Distribution Width 14 % N 10.5-15 Platelet Count 234 10^3/uL N 150-450 Mean Platelet Volume 8.2 um3 N 7.4-10.4 Abs Neutrophils 4.6 10^3/uL N 1.5-7.7 Abs Lymphocytes 1.6 10^3/uL N 1.0-4.8 Abs Monocytes 0.4 10^3/uL N 0-0.8 Abs Eosinophils 0.2 10^3/uL N 0-0.6 Abs Basophils 0 10^3/uL N 0-0.2 Abs Nucleated RBC 0 10^3/uL Granulocyte % 67.5 % N 38-83 Lymphocyte % 23.2 % Low 25-47 Monocyte % 6.1 % N 0-7 Eosinophil % 2.5 % N 0-6 Basophil % 0.7 % N 0-2 Nucleated Red Blood Cells % 0 Laboratory test finding 02/27/2018 [facility] Troponin I 0.00 ng/mL <0.04 CBC Auto Diff 02/19/2018 [facility] White Blood Count 5.5 10^3/uL N 3.5-10.8 Red Blood Count 4.36 10^6/uL N 4.0-5.4 [...] Cells % 0 Comp Metabolic Panel 02/19/2018 [facility] Sodium 139 mmol/L N 139-145 Potassium 3.7 mmol/L N 3.5-5.0 Chloride 101 [...] Egfr Non- 68.3 >60 Egfr 87.8 >60 16 Lipid Profile (Trig/Chol/HDL) 02/19/2018 [facility] Triglycerides 69 mg/dL 17 Cholesterol 182 mg/dL 18 HDL Cholesterol 54.1 mg/dL 19 LDL Cholesterol 114 mg/dL 20 Laboratory test 02/19/2018 [facility] TSH (Thyroid 1.37 mcIU/mL N 0.34-5.60 finding Stim Horm) Laboratory test 02/12/2018 [facility] Cytology SEE RESULT 21 finding Thinprep BELOW w/rfx([facility] [place]) Ua - Micro (a) 08/03/2017 [facility] Appearance CLOUDY (607)- - Color YELLOW Glucose, Urine (a/CMC/CTX) NEG Bilirubin NEG Ketones NEG SP Grav 1.015 Blood NEG PH 7.0 Protein NEG Urobil 0.2 Nitrite POS # Leukocytes (a/CMC/[facility]) TRACE # Hyaline - /Lpf Granular - /Lpf WBC ([facility]) 10-12 # RBC 0-2 # Mucus - /Lpf Epith RARE /Lpf # Bacteria 4+ /Hpf # Amorphous - /Lpf Crystals, Fluid (a/CMC/CTX) - Z#Comments - Laboratory test 02/13/2017 [facility] Sedimentation Rate 8 mm finding (607)- - CBC Electronic ([facility]) 02/13/2017 [facility] WBC 7.8 3.6-9.6 (607)- - RBC 3.98 3.90-5.70 Hemoglobin (a/CMC/CTX) 12.6 g/dL 12.1 - 17.2 Hematocrit (a/CMC/CTX) 36.4 % 36.1 - 50.3 Platelets 222 10^3/ul 150-400 Lymph% 27.7 % 17.0-48.0 Mixed% 5.1 Neutrophils % 67.2 Mean Corpuscular Vol 91 82.2-97.4 Mean Corpuscular Hemoglobin 31.5 27.6-33.3 Mean Corpuscular Hemo Concen 34.5 32.0-36.0 RDW 13.6 11.6-13.7 Mean Platelet Volume 7.5 5.5-11.0 FSH, Serum 02/13/2017 [facility] FSH 21.1 mIU/mL 22, 23 [address] [place] [address] (607)- - Laboratory test 02/13/2017 [facility] C-Reactive 1.2 mg/L 0.0-4. finding [address] Protein, Quant 9 [place] [address] (235)- - Laboratory test 02/11/2017 [facility] Troponin I 0.01 ng/mL N <0.04 24 finding Comp Metabolic 01/15/2017 [facility] Sodium 136 mmol/L N 133-14 Panel 5 Potassium 3.4 mmol/L Low 3.5-5.0 Chloride 101 mmol/L N 101-111 Co2 Carbon Dioxide 26 mmol/L N 22-32 Anion Gap 9 mmol/L N 2-11 Glucose 106 mg/dL High 70-100 Blood Urea Nitrogen 14 mg/dL N 6-24 Creatinine 0.87 mg/dL N 0.51-0.95 BUN/Creatinine Ratio 16.1 N 8-20 Calcium 9.2 mg/dL N 8.6-10.3 Total Protein 6.8 g/dL N 6.4-8.9 Albumin 4.3 g/dL N 3.2-5.2 Globulin 2.5 g/dL N 2-4 Albumin/Globulin Ratio 1.7 N 1-3 Total Bilirubin 1.10 mg/dL High 0.2-1.0 Alkaline Phosphatase 48 U/L N 34-104 Alt 25 U/L N 7-52 Ast 47 U/L High 13-39 Egfr Non- 69.5 N >60 Egfr 89.4 N >60 25 Laboratory test finding 01/15/2017 [facility] LDL Cholesterol Direct 105 mg/dL N 26 Creatine Kinase(CK) 641 U/L High 10-223 CKMB 01/15/2017 [facility] CKMB ng/mL 21.6 ng/mL High 0.6-6.3 Laboratory test finding 01/15/2017 [facility] Troponin I 1.31 ng/mL High <0.04 27 B-Type Natriuretic Peptide BNP 48 pg/mL N 28 Lactic Acid 1.7 mmol/L N 0.5-2.0 29 Lipid Profile (Trig/Chol/HDL) 01/15/2017 [facility] Triglycerides 70 mg/dL N 30 Cholesterol 180 mg/dL N 31 HDL Cholesterol 61.9 mg/dL N 32 LDL Cholesterol 104 mg/dL N 33 Laboratory test finding 01/15/2017 [facility] Partial Thrombo Time 31.3 seconds N 26.0-36.3 PTT Inr/Protime 01/15/2017 [facility] Inr 0.90 N 0.89-1.11 CBC Auto Diff 01/15/2017 [facility] White Blood Count 7.3 10^3/uL N 3.5-10.8 Red Blood Count 4.56 10^6/uL N 4.0-5.4 Hemoglobin 13.7 g/dL N 12.0-16.0 Hematocrit 41 % N 35-47 Mean Corpuscular Volume 90 fL N 80-97 Mean Corpuscular Hemoglobin 30 pg N 27-31 Mean Corpuscular HGB Conc 33 g/dL N 31-36 Red Cell Distribution Width 13 % N 10.5-15 Platelet Count 217 10^3/uL N 150-450 Mean Platelet Volume 8 um3 N 7.4-10.4 Abs Neutrophils 4.7 10^3/uL N 1.5-7.7 Abs Lymphocytes 2.0 10^3/uL N 1.0-4.8 Abs Monocytes 0.5 10^3/uL N 0-0.8 Abs Eosinophils 0.1 10^3/uL N 0-0.6 Abs Basophils 0.1 10^3/uL N 0-0.2 Abs Nucleated RBC 0 10^3/uL N Granulocyte % 64.1 % N 38-83 Lymphocyte % 26.7 % N 25-47 Monocyte % 6.6 % N 1-9 Eosinophil % 1.9 % N 0-6 Basophil % 0.7 % N 0-2 Nucleated Red Blood Cells % 0 N Laboratory test 08/09/2016 [facility] Urine Culture And SEE RESULT 34, 35 finding Sensitivities BELOW Laboratory test 01/10/2015 [facility](a) Vitamin D25 53 30-10 finding 0 Ua - Non Micro 01/09/2015 [facility] Appearance CLEAR (a) (607)- - Color YELLOW Glucose, Urine (Fma/[facility]/CTX) NEG Bilirubin NEG Ketones NEG SP Grav 1.030 Blood MENSES PH 6.0 Protein NEG Urobil 0.2 Nitrite NEG Leukocytes (a/[facility]) NEG CBC Auto Diff 12/12/2013 [facility] White Blood Count 5.4 10^3/uL 4.8-10.8 Red Blood Count 4.19 10^6/uL 4.0-5.4 Hemoglobin 12.9 g/dL 12.0-16.0 Hematocrit 38 % 35-47 Mean Corpuscular Volume 91 fL 80-97 Mean Corpuscular Hemoglobin 31 pg 27-31 Mean Corpuscular HGB Conc 34 g/dL 31-36 Red Cell Distribution Width 12 % 10.5-15 Platelet Count 214 10^3/uL 150-450 Mean Platelet Volume 8 um3 7.4-10.4 Abs Neutrophils 3.1 10^3/uL 1.5-7.7 Abs Lymphocytes 1.7 10^3/uL 1.0-4.8 Abs Monocytes 0.4 10^3/uL 0-0.8 Abs Eosinophils 0.2 10^3/uL 0-0.6 Abs Basophils 0 10^3/uL 0-0.2 Abs Nucleated RBC 0 10^3/uL Granulocyte % 57.5 % 38-83 Lymphocyte % 30.9 % 25-47 Monocyte % 7.0 % 1-9 Eosinophil % 4.0 % 0-6 Basophil % 0.6 % 0-2 Nucleated Red Blood Cells % 0.1 Comp Metabolic Panel 12/12/2013 [facility] Sodium 139 mmol/L 133-145 Potassium 3.8 mmol/L 3.7-5.6 Chloride 105 mmol/L 101-111 Co2 Carbon Dioxide 28 mmol/L 22-32 Anion Gap 6 mmol/L 2-11 Glucose 89 mg/dL 70-100 Blood Urea Nitrogen 13 mg/dL 6-24 Creatinine 0.88 mg/dL 0.51-0.95 BUN/Creatinine Ratio 14.8 8-20 Calcium 8.8 mg/dL 8.6-10.3 Total Protein 6.5 g/dL 6.4-8.9 Albumin 4.4 g/dL 3.2-5.2 Globulin 2.1 g/dL 2-4 Albumin/Globulin Ratio 2.1 1-3 Total Bilirubin 0.70 mg/dL 0.2-1.0 Alkaline Phosphatase 39 U/L 34-104 Alt 9 U/L 7-52 Ast 14 U/L 13-39 Egfr Non- 69.5 >60 Egfr 89.4 >60 36 Lipid Profile (Trig/Chol/HDL) 12/12/2013 [facility] Triglycerides 56 mg/dL 37 Cholesterol 155 mg/dL 38 HDL Cholesterol 44.7 mg/dL 39 LDL Cholesterol 99 mg/dL 40 CKMB 12/12/2013 [facility] CKMB ng/mL 1.6 ng/mL 0.6-6.3 Laboratory test finding 12/12/2013 [facility] Free T4 0.78 ng/mL 0.61-1.12 41 Free T3 2.60 pg/mL 2.5-3.9 42 TSH (Thyroid Stimulating Horm) 1.95 IU/mL 0.34-5.60 43 Laboratory test 11/21/2013 [facility] Thin Prep SEE NOTE [address] W/HPV(Lsil/ADRIANA/Asc) [place] [address] [phone] Ua - Micro 11/21/2013 [facility] Appearance clear (Fma) (607)- - Color yellow Glucose neg Bilirubin neg Ketones neg SP Grav 1.025 Blood trace-intact # lmp 11/15/13 PH 6.5 Protein neg Urobil 0.2 Nitrite neg Leukocytes (Fma/CMC/[facility]) neg Hyaline - /Lpf Granular 1-2 /Lpf # WBC (Fma,[facility]) - RBC - Mucus - /Lpf Epith - /Lpf Bacteria - /Hpf Amorphous - /Lpf Crystals, Fluid (Fma/CMC/CTX) - Z#Comments - CBC Auto Diff 05/05/2013 [facility] White Blood Count 7.3 10^3/uL 4.8-10.8 Red Blood Count 4.17 10^6/uL 4.0-5.4 Hemoglobin 13.0 g/dL 12.0-16.0 Hematocrit 39 % 35-47 Mean Corpuscular Volume 93 fL 80-97 Mean Corpuscular Hemoglobin 31 pg 27-31 Mean Corpuscular HGB Conc 33 g/dL 31-36 Red Cell Distribution Width 13 % 10.5-15 Platelet Count 204 10^3/uL 150-450 Mean Platelet Volume 9 um3 7.4-10.4 Abs Neutrophils 4.6 10^3/uL 1.5-7.7 Abs Lymphocytes 2.2 10^3/uL 1.0-4.8 Abs Monocytes 0.4 10^3/uL 0-0.8 Abs Eosinophils 0.1 10^3/uL 0-0.6 Abs Basophils 0 10^3/uL 0-0.2 Abs Nucleated RBC 0 10^3/uL Granulocyte % 62.6 % 38-83 Lymphocyte % 29.6 % 25-47 Monocyte % 5.4 % 1-9 Eosinophil % 1.9 % 0-6 Basophil % 0.5 % 0-2 Nucleated Red Blood Cells % 0 Comp Metabolic Panel 05/05/2013 [facility] Sodium 137 mmol/L 133-145 Potassium 3.5 mmol/L 3.5-5.0 Chloride 106 mmol/L 101-111 Co2 Carbon Dioxide 26.0 mmol/L 22-32 Anion Gap 5.0 mmol/L 2-11 Glucose 101 mg/dL High 70-100 Blood Urea Nitrogen 11 mg/dL 6-24 Creatinine 0.80 mg/dL 0.50-1.40 BUN/Creatinine Ratio 13.8 8-20 Calcium 9.4 mg/dL 8.1-9.9 Total Protein 7.3 g/dL 6.2-8.1 Albumin 4.3 g/dL 3.6-5.4 Globulin 3.0 g/dL 2-4 Albumin/Globulin Ratio 1.4 1-3 Total Bilirubin 1.6 mg/dL High 0.4-1.5 Alkaline Phosphatase 44 U/L 30-110 Alt 14 U/L 14-54 Ast 19 U/L 12-42 Egfr Non- 77.9 >60 Egfr 100.2 >60 45 Laboratory test finding 05/05/2013 [facility] Creatine Kinase 229 U/L High 0- 200 CKMB 05/05/2013 [facility] CKMB ng/mL 1.3 ng/mL 0.3-4.0 46 Laboratory test finding 05/05/2013 [facility] Troponin I 0.01 ng/mL 0-0.06 47 B Type Natriuretic Peptide 10.0 pg/mL 0-100 Inr/Protime 05/05/2013 [facility] Inr 0.89 0.87-0.97 Laboratory test 05/05/2013 [facility] Activated 29.8 seconds 22.18-37.18 finding Partial Thrombo Time CBC (Fma) 07/17/2010 [facility] WBC 4.6 3.6-9.6 (607)- - RBC 3.61 Low 3.90-5.70 Hemoglobin (Fma/CMC/CTX) 11.4 g/dL Low 12.1 - 17.2 Hematocrit (Fma/CMC/CTX) 33.6 % Low 36.1 - 50.3 Platelets 216 10^3/ul 150-400 Lymph% 26.0 20.5-51.1 Mixed% 11.3 Neutrophils % 62.7 Mean Corpuscular Vol 93.1 82.2-97.4 Mean Corpuscular Hemoglobin 31.6 27.6-33.3 Mean Corpuscular Hemo Concen 33.9 33.0-36.0 RDW 12.3 11.6-13.7 Mean Platelet Volume 10.7 High 7.4-10.4 HCG () Urine Stat 11/30/2009 [facility] Specific [place] 1.024 1.010- 1.030 Urine NEGATIVE Negative 48 CBC With Electronic Diff Stat 10/13/2009 [facility] White Blood Count 5.5 CUMM 4.8-10.8 Red Cell Count 4.05 CUMM Low 4.2-5.4 Hemoglobin 12.6 g/dL 12.0-16.0 Hematocrit 37 % 35-47 Mean Corpuscular Volume 92 um3 79-97 Mean Corpuscular Hemoglob 31 pg 27-31 Mean Corpuscular HGB Cone 34 g/dL 32-36 Redcell Distribution WDTH 13 % 10.5-15 Platelet Count 228 CUMM 150-450 Mean Platelet Volume 7.9 um3 7.4-10.4 Gran % 58.8 % 38-83 Lymph % 28.9 % 25-47 Mononuclear % 6.8 % 1-9 Eosinophil % 5.2 % 0-6 Basophil % 0.3 % 0-2 Abs Lymphs 1.6 1.0-4.8 Abs Mononuclear 0.4 0-0.8 Absolute Neutrophil Count 3.3 1.5-7.7 Abs Eosinophils 0.3 0-0.6 Abs Basophils 0 0-0.2 Basic Metabolic Panel Stat 10/13/2009 [facility] Sodium 139 mmol/L 135-145 Potassium 3.7 mmol/L 3.5-5.0 Chloride 105 mmol/L 101-111 Co2 (Carbon Dioxide) 28.0 mmol/L 22-32 Anion Gap 6.0 mmol/L 2-11 49 Glucose 86 mg/dL 70-100 50 BUN 17 mg/dL 6-24 Creatinine 0.70 mg/dL 0.50-1.40 One Over Creatinine 1.40 BUN/Creatinine Ratio 24.3 High 8-20 Calcium 9.0 mg/dL 8.1-9.9 51 eGFR Non- 98.5 > 60 eGFR 119.2 > 60 52 Complete Blood Count 05/01/2009 [facility](fma) WBC 6.5 x10^3/uL 3.6 -9.6 53 Gran# 4.5 x10^3/uL 1.5-7.2 Gran% 69.0 % 42.2-75.2 HCT 37 % 36-50 HGB 12.8 g/dL 12.1-17.2 Lymph# 1.8 x10^3/uL 0.7-4.9 Lymph% 27.9 % 20.5-51.1 MCH 30.3 pg 27.6-33.3 MCV 88.9 fL 82.2-97.4 MCHC 34.1 g/dL 33.0-35.5 Mo# 0.2 x10^3/uL 0.1-0.9 Mo% 3.1 % 1.7-9.3 MPV 8.4 fL 7.4-10.4 PLT 244 x10^3/uL 150-400 RBC 4.21 x10^6/uL 3.90-5.70 RDW 11.8 % 11.6-13.7 Laboratory test 05/01/2009 [facility]) TSH 1.55 mIU/L 0.50-6.00 finding Lipid Profile 05/01/2009 [facility](a) Cholesterol 170 mg/dL 120- 200 HDL 50 mg/dL 30-85 Triglycerides 113 mg/dL 30-200 HDL Risk Factor 3.4 CALC Low 4.2-7.0 LDL (Calculated) 97 CALC 0-129 VLDL (Calculated) 23 mg/dL 0-50 Comprehensive Metabolic 05/01/2009 [facility](a) Albumin 4.3 g/dL 3.8-5.5 Prof Alk. Phos. 48 U/L 30-110 Alt (SGPT) 11 U/L 7-35 Ast (Sgot) 12 U/L 5-34 BUN 14 mg/dL 6-26 Calcium 8.8 mg/dL 8.6-10.2 Chloride 97 mEq/L 94-112 Creatinine 0.9 mg/dL 0.6-1.4 Carbon Dioxide 28 mEq/L 21-32 Glucose 84 mg/dL 70-105 Sodium 138 mEq/L 134-149 Total Bilirubin 1.2 mg/dL 0.2-1.3 Total Protein 7.1 g/dL 6.3-8.1 Potassium 4.1 mEq/L 3.6-5.5 Globulin 2.8 g/dL 2.0-4.8 A/G Ratio 1.5 Calc 0.6-2.2 BUN/Creat Ratio 16.0 Calc 8.0-36.0 Ua - Non Micro (Fma) 04/19/2009 [facility] Medicine Appearance CLEAR (607)- - Color YELLOW Glucose NEG Bilirubin NEG Ketones TRACE # SP Grav 1.025 Blood NEG PH 5.5 Protein NEG Urobil 0.2 Nitrite NEG Leukocytes (Fma/CMC/[facility]) NEG Laboratory test 04/19/2009 [facility] Thin Prep SEE NOTE 54 finding [address] W/HPV(Lsil/ADRIANA/Asc) [place] [id number] [phone] Ua - Micro 02/17/2009 [facility] Appearance CLOUDY (Fma) (607)- - Color YELLOW Glucose NEG Bilirubin NEG Ketones NEG SP Grav 1.010 Blood TRACE-LYSED # PH 6.5 Protein NEG Urobil 0.2 Nitrite NEG Leukocytes (Fma/CMC/[facility]) SMALL # Hyaline - /Lpf Granular - /Lpf WBC (Fma,[facility]) 20-40 RBC 5-40 Mucus - /Lpf Epith FEW /Lpf Bacteria 1+ /Hpf Amorphous - /Lpf Crystals, Fluid (Fma/CMC/CTX) - Z#Comments - Basic Metabolic Panel Stat 04/17/2008 [facility] Sodium 140 mmol/L 135-145 Potassium 3.6 mmol/L 3.5-5.0 Chloride 108 mmol/L 101-111 Co2 (Carbon Dioxide) 30.0 mmol/L 22-32 Anion Gap 2.0 mmol/L 2-11 55 Glucose 94 mg/dL 70-105 BUN 11 mg/dL 6-24 Creatinine 0.8 mg/dL 0.5-1.4 One Over Creatinine 1.25 BUN/Creatinine Ratio 13.8 8-20 Calcium 8.5 mg/dL 8.1-9.9 56 Mumpgm 04/17/2008 [facility] Mumps Virus AB, Igg Positive Negative Mumps Virus AB, Igm Negative Negative 57 CBC With Electronic Diff 04/17/2008 [facility] White Blood Count 4.5 CUMM Low 4.8-10.8 Stat Red Cell Count 4.01 CUMM Low 4.2-5.4 Hemoglobin 12.6 g/dL 12.0-16.0 Hematocrit 35 % 35-47 Mean Corpuscular Volume 88 um3 79-97 Mean Corpuscular Hemoglob 32 pg High 27-31 Mean Corpuscular HGB Cone 36 g/dL 32-36 Redcell Distribution WDTH 13 % 10.5-15 Platelet Count 218 CUMM 150-450 Mean Platelet Volume 7.6 um3 7.4-10.4 Gran % 61.6 % 38-83 Lymph % 27.2 % 20-45 Mononuclear % 8.0 % 1-9 Eosinophil % 2.6 % 0-6 Basophil % 0.6 % 0-2 Abs Lymphs 1.2 1.0-4.8 Abs Mononuclear 0.4 0-0.8 Absolute Neutrophil Count 2.8 1.5-7.7 Abs Eosinophils 0.1 0-0.6 Abs Basophils 0 0-0.2 Laboratory test 11/13/2000 [facility] Throat Culture POSITIVE finding (607)- - Ua - Micro (Fma New) 11/13/2000 [facility] Appearance CLEAR DK LESLIE (607)- - Glucose - Bilirubin MAYTE ICTOTEST Ketones 40 SP Grav 1.020 Blood TRACE-INTACT PH 6.5 Protein NEG SSA Urobil 2.0 Nitrite - Leukocytes - Hyaline - /Lpf Granular - /Lpf WBC'S 3-5 RBC'S 1-3 Mucus - /Lpf Epith FEW Bacteria TRACE Amorphous - /Lpf Crystals - /Lpf 1 if can't give urine, please give her the equipment and she can drop it off later on. 2 Because ethnic data is not always readily [...] 15-29 5 Kidney failure <15 (or dialysis) 3 Desirable: <150 Borderline High: 150-199 High: 200-499 Very High: >500 4 Desirable: <200 Borderline High: 200-239 High: >239 5 Low: <40 Desirable: 40-60 High: >60 6 Desirable: <100 Near Optimal: 100-129 Borderline High: 130-159 High: 160-189 Very High: >189 7 SEE RESULT BELOW Name: TRINY CASTELLANO Kj : [address]: Christine Campos MD Acct: [id number] Unit: [id number] AGE: 48 Location: [facility] Re01/18/19 SEX: F Status: REG REF SPEC: [id number] ARIS: 01/18/19-[address] [facility] [address]: Christine Campos MD REQ: [id number] RECD: 01/19/190377 STATUS: ED PENN DR: Doni Saucedo MD _ ORDERED: LEVEL 4 COMMENTS: NO TRACKING FINAL DIAGNOSIS Uterus, endometrium, biopsy: -- Weakly proliferative endometrium. -- No evidence of hyperplasia or malignancy. PRE-OPERATIVE DIAGNOSIS Dysfunctional uterine bleeding GROSS DESCRIPTION The specimen is received in formalin with no source identified and a requisition labeled, EM BX, and consists of a 1.6 x 1.3 x 0.4 cm aggregate of transparent mucus admixed with brown irregular soft tissue fragments. The specimen is filtered and submitted entirely in one cassette. Signed by and Reported on: Nancy Huggins MD 01/20/19 1411 END OF REPORT DEPARTMENT OF PATHOLOGY, [address] [place] [address] Jhony Bobo M.D. Director [facility] # [id number] Quick Sketch Artist: [id number] Quick Sketch Artist: [id number] 10 [id number] SEE RESULT BELOW Name: TRINY CASTELLANO : [address]: Cici Parks MD Acct: [id number] Unit: [id number] AGE: 47 Location: [facility] Re11/05/18 SEX: F Status: DEP ER SPEC: [id number] ARIS: 11/05/[address] [facility] [address]: Cici Parks MD REQ: [id number] RECD: 11/05/18 STATUS: ENDY PENN DR: Doni Saucedo MD _ SOURCE: URINE SPDESC: ORDERED: Urine Culture COMMENTS: [id number] Procedure Result Reported Site Urine Culture Final 11/07/18- 0831 ML Organism 1 PROTEUS MIRABILIS [place] Count 25-50,000 (Moderate) CFU/ML 1. PROTEUS MIRABILIS M.I.C. RX --------- ------ Ampicillin <=2 S Cefazolin <=4 S Cefepime <=1 S Ceftriaxone <=1 S Ciprofloxacin <=0.25 S Gentamicin <=1 S Levofloxacin <=0.12 S Meropenem <=0.25 S Nitrofurantoin 128 R Tetracycline >=16 R Pipercillin/Tazobactam <=4 S Trimethoprim/Sulfamethoxazole <=20 S Amoxicillin/Clavulanic Acid <=2 S Aztreonam <=1 S Contact the Microbiology Department for any additional antibiotic reporting. * ML - Main Lab . END OF REPORT DEPARTMENT OF PATHOLOGY, [address] [place] [address] Jhony Bobo M.D. Director [facility] # [id number] 12 Acute inflammation: >10.00 13 Because ethnic data is not always readily [...] 15-29 5 Kidney failure <15 (or dialysis) 14 Please note: The following may produce a false positive D Dimer test: - Rheumatoid factor greater than 60 IU/ml - Plasma hemoglobin greater than 0.05 gm/dl - Bilirubin greater than 50 mg/dl - Lipids greater than 1000 mg/dl - FDP greater than 20 ug/ml 15 [facility] Severe Sepsis and Septic Shock Management Bundle Measure requires all lactic acids initially measuring >2.0 mmol/L be repeated. 16 Because ethnic data is not always readily [...] 15-29 5 Kidney failure <15 (or dialysis) 17 Desirable: <150 Borderline High: 150-199 High: 200-499 Very High: >500 18 Desirable: <200 Borderline High: 200-239 High: >239 19 Low: <40 Desirable: 40-60 High: >60 20 Desirable: <100 Near Optimal: 100-129 Borderline High: 130-159 High: 160-189 Very High: >189 21 SEE RESULT BELOW Name: TRINY CASTELLANO : [address]: Alysa Nelson MD Acct: [id number] Unit: [id number] AGE: 47 Location: [facility] Re02/12/18 SEX: F Status: REG REF SPEC: [id number] ARIS: 02/12/18-[address] [facility] [address]: Alysa Nelson MD REQ: [id number] RECD: 02/12/18 STATUS: SOUT _ ORDERED: TP IMAGE ANALYS, HPV/Thin Prep, HPV 16/18 GENE COMMENTS: [id number] Negative for Intraepithelial lesion or Malignancy A. Ectocervical/Endocervical Specimen Adequacy: Satisfactory of evaluation Transformation zone component identified Patient Information: HPV: High risk HPV RNA testing regardless of pap results. HPV 16/18 Genotype Reflex Actual Specimen Date: 02/12/18 Last Menstrual Date: 01/14/18 Spec Date if unknown: 2013 ?: N Post Menopausal?: N Hysterectomy?: N Previous Abnormal Pap Smears?:N Date Time Test Result Flag (u) Normal Range 02/12/18 1357 @ HPV RNA RFLX GE Negative Negative @ @ The high-risk HPV types detected by the assay include: 16, @ 18, 31, 33, 35, 39, 45, 51, 52, 56, 58, 59, 66, and 68. Signed by and Reported on: CHRISTOPHER Beaver(ASCP) [id number] This Pap test was evaluated with the assistance of the [employer] Test Imaging System. Due to cytologic findings at the prop drawer microscope, comprehensive manual rescreening by a [employer] Officer may be required. The Pap Smear is a screening test designed to aid in the detection of premalignant and malignant conditions of the uterine cervix. It is not a diagnostic procedure and should not be used as the sole means of detecting cervical cancer. Both false- positive and false- negative reports do occur. Depending on your risk status, a Pap smear should be obtained and evaluated every 1-3 years. END OF REPORT DEPARTMENT OF PATHOLOGY, [address] [place] [address] Jhony Bobo M.D. Director [facility] # [id number] Adult Female: Follicular phase 3.5 - 12.5 Ovulation phase 4.7 - 21.5 Luteal phase 1.7 - 7.7 Postmenopausal 25.8 - 134.8 24 99th percentile=0.04 ng/mL Troponin results at [facility] and [facility] are not interchangeable. 25 Because ethnic data is not always readily [...] 15-29 5 Kidney failure <15 (or dialysis) 26 Desirable: <100 mg/dL Near Optimal: 100-129 mg/dL Borderline High: 130-159 mg/dL High: 160-189 mg/dL Very High: >189 mg/dL 27 Result TnIDx:1.31 Called to JORGITO at: 09:04:10 by:[id number] Read back by:JORGITO 99th percentile=0.04 ng/mL Troponin results at [facility] and [facility] are not interchangeable. 28 >100 to <200 pg/mL: likely compensated congestive heart failure (CHF) 200 to 400 pg/mL: likely moderate CHF >400 pg/mL: likely moderate to severe CHF 29 [place] Severe Sepsis and Septic Shock Management Bundle Measure requires all lactic acids initially measuring >2.0 mmol/L be repeated. 30 Desirable <150 Borderline high 150-199 High 200-499 Very High >500 31 Desirable <200 Borderline high 200-239 High >239 32 Low <40 Desirable: 40-60 High: >60 33 Desirable: <100 mg/dL Near Optimal: 100-129 mg/dL Borderline High: 130-159 mg/dL High: 160-189 mg/dL Very High: >189 mg/dL 34 [id number] SEE RESULT BELOW Name: TRINY CASTELLANO : [address]: Sofia Martin Acct: [id number] Unit: [id number] AGE: 45 Location: [facility] Re08/09/16 SEX: F Status: DEP ER SPEC: [id number] ARIS: 08/09/16-[address] [facility] [address]: Sofia Woodward DO REQ: [id number] RECD: 08/10/16-1251 STATUS: ENDY PENN DR: [facility] Doni Saucedo MD _ SOURCE: URINE SPDESC: ORDERED: Urine Culture COMMENTS: [id number] Procedure Result Reported Site Urine Culture Final 08/12/16- 0854 ML Organism 1 ESCHERICHIA COLI [place] Count 25-50,000 (Moderate) CFU/ML Organism 2 NORMAL DOMO [place] Count 10-25,000 (Moderate) CFU/ML 1. ESCHERICHIA COLI M.I.C. RX --------- ------ Ampicillin 4 S Cefazolin <=4 S Cefepime <=1 S Ceftriaxone <=1 S Ciprofloxacin <=0.25 S Gentamicin <=1 S Levofloxacin <=0.12 S Meropenem <=0.25 S Nitrofurantoin <=16 S Tetracycline <=1 S Pipercillin/Tazobactam <=4 S Trimethoprim/Sulfamethoxazole <=20 S Amoxicillin/Clavulanic Acid <=2 S Aztreonam <=1 S Contact the Microbiology Department for any additional antibiotic reporting. * ML - MAIN LAB ([facility]) . END OF REPORT * ML=Testing performed at Main Lab DEPARTMENT OF PATHOLOGY, [address] [place] [address] Jhony Bobo M.D. Director [facility] # [id number] 36 Because ethnic data is not always readily [...] 15-29 5 Kidney failure <15 (or dialysis) 37 Desirable <150 Borderline high 150-199 High 200-499 Very High >500 38 Desirable <200 Borderline high 200-239 High >239 39 Low <40 Desirable: 40-60 High: >60 40 Desirable <100 Near Optimal 100-129 Borderline high 130-159 High 160-189 Very High >189 41 FASTING 42 FASTING 43 FASTING 44 [facility] DEPARTMENT OF PATHOLOGY or Extension 8246 [facility] ADMINISTRATOR CYTOLOGY REPORT Patient: TRINY CASTELLANO : 1970 AGE: 43 Y SEX: F Acct: [id number] Procedure Date: 11/21/2013 Date Received: 2013 Requesting Provider: HERBERT MCLEAN [place] [facility] [place]. [id number] Requisition #: [id number] CYTOLOGIC INTERPRETATION: SPECIMEN ADEQUACY SATISFACTORY FOR EVALUATION, ENDOCERVICAL TRANSFORMATION ZONE COMPONENT PRESENT GENERAL CATEGORIZATION NEGATIVE FOR INTRAEPITHELIAL LESIONS OR MALIGNANCY RECOMMENDATIONS Refer to the corresponding web sites for 2012 updated general recommendation guidelines of U.S. preventive service task force for cervical cancer screening, and www.asccp.org//ypeyyigzq8561. COMMENTS Thin Prep Pap tests are examined with an FDA approved location-guidance system. PATIENT DATA: SPECIMEN SUBMITTED: * * (HPVII) THIN PREP W/HPV (LSIL/ASC/ADRIANA) * * ENDOCERVICAL RELEVANT HISTORY: LMP: 11/13/2013 Contraceptive: SPOUSE VASECTOMY Menarche: Y : 2 Prev.normal: 8-6-09 Para: 2 ADDITIONAL COPIES SENT TO: Screened/Rescreened Electronically Signed Sign Out Date/Time: by: by: CHRISTOPHER DAVIDSON(ASCP) 2013 12:44 Note: The Pap smear is a screening test designed to aid in the detection of premalignant and malignant conditions of the uterine cervix. It is not a diagnostic procedure and should not be used as the sole means of detecting cervical cancer. Both false-positive and false-negative reports do occur. 00 UA Pap Smear performed at [place] Dir: Wili Steward MD, [address] [facility] [id number] 01 burner technician Fran [place] Dir: Roberto Carlos Jones MD, [address] [facility] [id number] BN Lab [facility] [place] Dir: Carlo Glover MD, [facility] [id number] For inquiries regarding HPV test results, the physician may contact Lab Fran: [phone] . 45 Because ethnic data is not always readily [...] 15-29 5 Kidney failure <15 (or dialysis) 46 CKMB interpretation should be made in conjunction with clinical symptoms, patient history and EKG changes. 47 Reference Range and Interpretation: TnI (ng/mL) Interpretation Less Than 0.06 ng/mL Not supportive of diagnosis of VA 0.06 - 0.50 ng/mL Indeterminate: suggest serial studies if clinically indicated. Greater than 0.5 ng/mL Consistent with diagnosis of VA 48 If is still suspected, please repeat test after 48 to 72 hours. . 49 Anion gap measurement may be of limited value in the presence of any alkalosis, especially in a combined acid base disorder. . 50 Note change in reference range as of 05/04/08. The change was based on recommendations from the [place] [employer]. 51 Please note change in reference range effective 08 . 52 Because ethnic data is not always readily [...] 15-29 5 Kidney failure <15 (or dialysis) 53 FASTING 54 [facility] DEPARTMENT OF PATHOLOGY or Extension 6135 [facility]ILITY ADMINISTRATOR CYTOLOGY REPORT PATIENT: TRINY CASTELLANO : 1970 AGE: 38 Y SEX: F ACCT: [id number] PROCEDURE DATE: 04/19/2009 DATE RECEIVED: 04/23/2009 REQUESTING PHYSICIAN: NANCY KING MD LOCATION: [facility] [place] No. [id number] PATIENT DATA: [id number] SPECIMEN SUBMITTED: * * (HPVII) THIN PREP W/HPV (LSIL/ASC/ADRIANA) * * ENDOCERVICAL RELEVANT HISTORY: LMP: 04/06/2009 : 2 Para: 2 Prev.normal: 04-20 SPECIMEN ADEQUACY SATISFACTORY FOR EVALUATION, ENDOCERVICAL TRANSFORMATION ZONE COMPONENT ABSENT GENERAL CATEGORIZATION NEGATIVE FOR INTRAEPITHELIAL LESIONS OR MALIGNANCY ADDITIONAL COPIES SENT TO: Screened/Rescreened by: Electronically Signed by: CHRISTOPHER WILLIS(ASCP) Signed Date and Time: 04/24/2009 14:18 Thin Prep Pap tests are examined with an FDA-approved location-guidance system (15866). Performed @ [facility] [address] [place] [id number] "" 55 Anion gap measurement may be of limited value in the presence of any alkalosis, especially in a combined acid base disorder. . 56 Please note change in reference range effective 08 . 57 Test Performed by: [facility] Dpt of Lab Med and Pathology [address] [place], [place] [id number] Saturator Tender: Zach Alvarez III, M.D. Procedures Date Code Description Status 03/02/2019 [id number] Mammogram Completed 02/21/2019 [id number] Mammogram Completed 02/19/2018 [id number] Mammogram Completed 02/12/2018 54129 Electrocardiogram Complete Completed 11/19/2015 29498 Pulse Oximetry Completed 01/09/2015 86832 Vision Test- screening test of visual acuity, Completed quantitative, bila 12/19/2014 [id number] Mammogram Completed 08/26/2014 39125 Pulse Oximetry Completed 12/02/2013 [id number] Mammogram Completed 11/21/2013 23616 Electrocardiogram Complete Completed 11/11/2012 82063 Pulse Oximetry Completed 07/28/2012 11462 Pulse Oximetry Completed 04/20/2009 [id number] Mammogram Completed 10/20/2007 66763 Pulse Oximetry Completed Encounters Type Date Location Provider Dx Diagnosis Office Visit 07/06/2018 [facility] Office Doni Su J01.00 Acute maxillary 9:10a Jones Saucedo sinusitis, unspecified M54.5 Low back pain R30.0 Dysuria Office Visit 03/24/2018 1:40p Main Office Alysa Harris M25.512 Pain in left Jones Nelson shoulder N95.1 Menopausal and female climacteric states Office Visit 02/12/2018 1:00p [facility] Office Alysa Harris Z00.00 Encntr for Jones Nelson general adult medical exam w/o abnormal findings J45.30 Mild persistent asthma, uncomplicated T78.49xD Other allergy, subsequent encounter R07.9 Chest pain, unspecified M25.571 Pain in right ankle and joints of right foot N95.1 Menopausal and female climacteric states Z23 Encounter for immunization I25.10 Athscl heart disease of [place] coronary artery w/o ang pctrs R60.0 Localized edema Office Visit 10/21/2017 9:45a [facility] Office Fanny Hoover01.90 Acute sinusitis, Lib[place], R DEVELOPER unspecified J20.9 Acute bronchitis, unspecified Office Visit 08/03/2017 3:00p Main Office Dede Terrell, N39.0 Urinary tract GERMAN TEACHER infection, site not specified Office Visit 06/10/2017 9:10a Main Office Doni Su H70.002 Acute mastoiditis Jones Saucedo without complications, left ear Office Visit 02/13/2017 1:20p Main Office Doni Su R07.89 Other chest pain Jones Saucedo Office Visit 09/18/2016 9:45a [facility] Sneha Davies01.90 Acute sinusitis, Office GERMAN TEACHER unspecified Office Visit 01/17/2016 3:45p [facility] Sneha Summers01.00 Acute maxillary Office R DEVELOPER sinusitis, unspecified Office Visit 11/19/2015 3:30p [facility] Je Hoover01.90 Acute sinusitis, Office Jones Harris unspecified Office Visit 09/03/2015 10:45a [facility] Nancy J01.00 Acute maxillary Office Leah, GERMAN TEACHER sinusitis, unspecified R05 Cough Office Visit 01/30/2015 3:30p [facility] Radha 692.6 Dermatitis [place], Afnp-C Contact Due To Plants (Except Food) Office Visit 01/09/2015 1:50p [facility] Alysa Harris V70.0 Examination Jones Nelson General Medical Routine AT Health Care Facility 493.10 Asthma Intrinsic Unspecified 995.3 Allergy Unspec 268.9 Vitamin D Deficiency Unspec V06.1 Gtjvyohoby-Aeimvzf-Bcffojfz Combined (DTaP) v06.5 Tetanus Diphtheria (DT) Office Visit 01/05/2015 3:30p [facility] Cherry Alonzo, 461.0 Sinusitis Acute R DEVELOPER Maxillary Office Visit 08/26/2014 10:45a Main Office Doni Su 466.0 Bronchitis Zac Saucedo M.D. Office Visit 03/14/2014 8:00a Main Office Ulysses Ramírez 782.0 Skin Sensation Shallish, Disturbance M.D. 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 786.50 Pain Chest Unspec 599.72 Microscopic Hematuria Office Visit 07/21/2013 3:30p [facility] Dede Terrell, 461.9 Sinusitis Acute GERMAN TEACHER Unspec 493.10 Asthma Intrinsic Unspecified Office Visit 11/11/2012 11:10a [facility] Theo Mario, 461.9 Sinusitis Acute M.DBib Unspec 466.0 Bronchitis Acute 493.10 Asthma Intrinsic Unspecified Office Visit 07/28/2012 3:20p [facility] Je Bowles 461.9 Sinusitis Acute Jones Harris Unspec Office Visit 09/18/2011 2:40p Main Office Sophie Lynn 786.2 Cough Jones Cox Office Visit 09/04/2011 3:00p Main Office Sophie Lynn 466.0 Bronchitis Acute Jones Cox Office Visit 03/21/2011 1:30p [facility] Kassidy Nagy 692.6 Dermatitis Afnp-C Contact Due To Plants (Except Food) Office Visit 07/17/2010 12:00p Main Office Doni Su 486 Pneumonia Jones Saucedo Organism Unspec Office Visit 07/15/2010 3:20p Main Office Doni Su 461.9 Sinusitis Acute Jones Saucedo Unspec 486 Pneumonia Organism Unspec Office Visit 05/29/2010 3:30p [facility] Dede Terrell, 477.9 Rhinitis GERMAN TEACHER Allergic Cause Unspec 493.10 Asthma Intrinsic Unspecified Office Visit 09/20/2009 [facility] Kassidy Nagy, 524.60 Temporomandibular 9:45a Office Afnp-C Joint Disorders Unspec Office Visit 04/19/2009 [facility] Nancy zavaleta V72.31 Routine Job Foreman 2:00p Office Jones Cruz Examination V70.0 Examination General Medical Routine AT Health Care Facility 788.33 Incontinence 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) (Female) 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, W/Other Complicatn V18.0 History Family Diabetes Mellitus V17.3 History Family Ischemic Heart Disease V77.0 Screening Thyroid Disorders Office Visit 02/17/2009 10:30a Main Office Dede Terrell, 599.0 UTI Urinary GERMAN TEACHER Tract Infection Site Not Spec Office Visit 01/18/2009 11:10a [facility] Theo Mario, 461.9 Sinusitis Acute M.DBib Unspec 465.9 URI Upper Respiratory Infections Acute Unspec Sites 477.9 Rhinitis Allergic Cause Unspec Office Visit 04/15/2008 Main Office Nancy zavaleta 524.60 Temporomandibular 11:50a Jones Cruz Joint Disorders Unspec Office Visit 11/29/2007 [facility] Ulysses Ramírez 477.9 Rhinitis Allergic 3:40p Office Jones Louise Cause Unspec Office Visit 10/20/2007 [facility] Je Bowles 461.9 Sinusitis Acute Unspec 3:40p Office Jones Harris Office Visit 12/31/2005 [facility] Dede Terrell, 465.9 URI Upper Respiratory 11:00a Office GERMAN TEACHER Infections Acute Unspec Sites 477.9 Rhinitis Allergic Cause Unspec 493.10 Asthma Intrinsic Unspecified Office Visit 10/15/2005 10:00a Main Office EMANUEL Davies 461.9 Sinusitis Acute Unspec Office Visit 03/02/2003 8:45a Main Office Ulysses Louise, 704.8 Hair & Hair M.D. Follicle Diseases Other Spec Office Visit 03/05/2002 12:10p Main Office Ulysses Louise M.D. Office Visit 10/14/2001 4:00p Main Office Theo Mario M.D. Office Visit 07/12/2001 4:00p Main Office Theo Mario M.D. Office Visit 11/13/2000 11:00a Main Office Ulysses Louise M.D. Plan of Treatment 02/25/2019 - Alysa Nelson M.D.Z00.00 Encounter for general adult medical examination without abnoNew Labs:Urine C&S If Indicated, Ordered: Comments:You are in excellent general health. I recommend regular physical exams with attention to good nutrition and exercise, eye exams every other year , and dental exams twice yearly. Goals:2 fresh fruits daily3 helpings of fresh green and multicolored vegetablesEat from the whole color spectrum. 40-60 Oz water dailyMOVE YOUR BODY. Bodies were made to be moved. exercise 30 minutes at least 4-5 times pjyghmR73.818 Encounter for other preprocedural examinationComments:stop all non prescription supplements on March 11 prior to surgery. continue your aspirin per Dr. Rodriguez. All bloodwork from 02/12/19 is normal. This should be good enoughUA is normal.If Dr. Rodriguez clears you, you are cleared for surgery. Please start a stool regimen while in the hospital if patientrequires pain meds. Do not let yourself get constipated while on narcotic pain medicine. You can use a stool softener, milk of magnesia and/or miralax.S46.102A Unspecified injury of muscle, fascia and tendon of long headM19.212 Secondary osteoarthritis, left ijsrpvehI47.012A Strain of muscle(s) and tendon(s) of the rotator cuff of lefI25.10 Atherosclerotic heart disease of [place] coronary artery withComments:Stable. Continue present meds. follow up with Dr. Rodriguez.J45.30 Mild persistent asthma, uncomplicatedComments:Stable. Continue present meds.Z12.11 Encounter for screening for malignant neoplasm of colonComments:refer for colonoscopyAllComments:Medication Management Patient Understands medications she's taking? Yes No Are there Barriers to Adherence? Yes No Has the patient been asked about herbal supplements and therapies, and OTC meds? Yes No
--- OUTSIDE RECORDS SUMMARY | 2019-03-09 16:52 | XMS REPORT | Continuity of Care Document ---
:1970 External Reference #:[id number] Author Name Anahi Galvin Care Team Providers Name Role Phone Doni Saucedo MD Primary Care Physician Unavailable Payers Date Identification Numbers Payment Provider Subscriber Effective: 2016 Policy Number: [id number] [employer]ets Negro Gutierrez PayID: [id number] [address] [address] [place] [address] Effective: 2016 Policy Number: [id number] [employer]ets Tad Nona PayID: [id number] [place] [address] Onset: 2014 Policy Number: [id number] TST Negro Gutierrez PayID: [id number] [address] [place] [address] Problems Active Problems Provider Date Acute myocardial infarction of Mavis Quinones MD, [facility], Onset: 01/22/2017 inferior wall [facility] Congenital pes cavus Phillip Abbott MD Onset: 02/23/2018 Peroneal tendinitis, right leg Phillip Abbott MD Onset: 02/23/2018 Chest pain BRYN Royal Onset: 02/27/2018 Arteriosclerosis of coronary artery BRYN Royal Onset: 02/27/2018 bypass graft Hypo-osmolality and or hyponatremia BRYN Royal Onset: 02/27/2018 Asthma without status asthmaticus BRYN Royal Onset: 02/27/2018 Old myocardial infarction Mavis Quinones MD, [facility], Onset: 03/18/2018 FSCAI Injury of shoulder [...] Former Cigarette Smoker Unknown Smoking Status Reviewed: 02/23/19 Former Cigarette Smoker ETOH Use Consumes 1 [...] 25mg Tablets mouth daily MD Joni, FACC, [facility] Effient 1 by mouth 90tabs Mavis Valentine 01/17/2017 10mg Tablets every day MD Joni, SERVANDO, [facility] Nitroglycerin 1 sl q5mins x3 25tabs Lisa Nuñez, 01/17/2017 0.4mg Tablets Sub as needed for N.P. chest pain Potassium once a day Unknown 99mg Tablets Estroven daily Unknown Fish Oil Double Strength 1 gel cap daily Unknown With Crescent 3 by mouth 1200mg Capsules Magnesium Oxide 1 by mouth Unknown 400mg Tablets every day Cranberry Plus Vitamin C one cap PO bid Unknown [id number]-mg-Unit Capsules Vitamin C-Trinity Hips daily at hs [...] Atorvastatin Calcium 1 by mouth every 90tabs Mavis Valentine 01/17/2017 - day MD Joni, 02/12/2017 80mg Tablets FACC, [facility] Metoprolol Tartrate 1/2 tab by mouth 180tabs Mavis T. 01/17/2017 - twice a day MD Joni, 06/04/2017 50mg Tablets FACC, [facility]SCAI Hydrocodone-Acetamino as directed Unknown - phen 03/19/2016 Breo Ellipta one inhalation Unknown - daily 07/04/2018 200-25mcg/Inh Aerosol Epipen 2-Ryan use as directed Unknown - 02/22/2019 0.3mg/0.3ML Solution Auto-Inject Medications Administered in Office Medication SIG Qnty Indications Ordering Provider Date Triamcinolone (Kenalog) Steve Lisa MD 10/12/2018 Injection Triamcinolone (Kenalog) Steve Lisa MD 04/08/2018 Injection Vital Signs Date Vital Result Comment 02/23/2019 2:46pm Height 66.5 inches 5'6.50" Weight [...] Result H/L Range Note Lipid Profile 02/12/2019 [facility] Triglycerides 60 mg/dL 1 (Trig/Chol/HDL) [address] [place] [address] [phone] Cholesterol 171 mg/dL 2 HDL Cholesterol 62.0 mg/dL 3 LDL Cholesterol 97 mg/dL 4 Comp Metabolic Panel 02/12/2019 [facility] Sodium 138 mmol/L N 135-[address] [place] [address] [phone] Potassium 3.4 mmol/L Low 3.5-5.0 Chloride 102 [...] 88.0 >60 5 Lipid Panel - 02/12/2019 [facility] Creatine 178 U/L N 10-[address] Kinase(CK) [place] [address] [phone] CBC Auto Diff 02/12/2019 [facility] White Blood Count 5.7 N 3.5-10.[address] 10^3/[place] [address] [phone] Red Blood Count 3.91 10^6/uL N 3.70-4.87 [...] Cells % 0.0 CBC Auto Diff 02/19/2018 [facility] White Blood 5.5 10^3/uL N 3.5-10.[address] [place] [address] [phone] Red Blood Count 4.36 10^6/uL N 4.0-5.4 [...] Cells % 0 Comp Metabolic Panel 02/19/2018 [facility] Sodium 139 mmol/L N 139-[address] [place] [address] [phone] Potassium 3.7 mmol/L N 3.5-5.0 Chloride 101 [...] Egfr 87.8 >60 6 Lipid Profile 02/19/2018 [facility] Triglycerides 69 mg/dL 7 (Trig/Chol/HDL) [address] [place] [address] [phone] Cholesterol 182 mg/dL 8 HDL Cholesterol 54.1 mg/dL 9 LDL Cholesterol 114 mg/dL 10 Laboratory test 02/19/2018 [facility] TSH (Thyroid 1.37 mcIU/mL N 0.34-5.[address] [place] [address] [phone] 1 Desirable: <150 Borderline High: 150-199 High: [...] High: >189 Procedures Date Code Description Status 02/23/2019 93442 EKG Tracing & Interpretation Completed 10/12/2018 07614 Inject/Drain Joint/Bursa Major W/O US Completed 09/22/2018 46465 EKG Tracing & Interpretation Completed 04/08/2018 97139 Inject/Drain Joint/Bursa Major W/O US Completed 03/01/2018 74076 Treadmill Interp/Report Only Completed 03/01/2018 44610 Stress Test Supervsn W/Out I/R Completed 02/28/2018 97949 ECHO Transthorasic Realtime 2D W Doppler & Color Flow Hosp Completed 02/28/2018 42941 EKG, Interpretation Only Completed 06/04/2017 43577 EKG Tracing & Interpretation Completed 02/19/2017 49295 EKG Tracing & Interpretation Completed 01/22/2017 23140 EKG Tracing & Interpretation Completed 01/17/2017 90019 EKG, Interpretation Only Completed 01/16/2017 43102 EKG, Interpretation Only Completed 01/15/2017 39663 Left Heart Cath. Incl S/I Coronaries, Angio S/I V Gram If Completed Done 01/15/2017 25164 EKG, Interpretation Only Completed 01/15/2017 36842 Revascularization Acute Total/Subtotal Occlusion Completed Encounters Type Date Location Provider Dx Diagnosis Office Visit 10/12/2018 Orthopedic Steve Lisa MD S46.112D Strain of 2:30p [facility] 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 unspecified I25.2 Old myocardial infarction I25.810 Atherosclerosis of CABG w/o angina pectoris Office Visit 07/05/2018 3:30p Orthopedic Phillip Abbott M76.71 Peroneal Services Of MD adams, right [facility] 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 leg Q66.7 Congenital pes cavus Office Visit 04/08/2018 9:00a Rebecca Lisa S46.012D Strain of Services Of MD [place] the [facility] 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, left shoulder M25.522 Pain in left elbow M25.512 Pain in left shoulder Office Visit 03/18/2018 8:40a [facility] Mavis Valentine I25.2 Old myocardial Of [facility] MD Joni, infarction FACC, [facility]SCAI Office Visit 03/01/2018 2:38p [facility] Sanaz R07.9 Chest pain, Assoc,pc OZIEL Llamas unspecified Hospitalists I25.810 Atherosclerosis of CABG w/o angina pectoris J45.909 Unspecified asthma, uncomplicated Office Visit 03/01/2018 3:12p [facility] Alin Lynn I25.10 Athscl heart Of [facility] Jones Peña disease of [place] coronary artery w/o ang pctrs R07.9 Chest pain, unspecified Office Visit 02/28/2018 2:22p [facility] Cheko Ramírez R07.9 Chest pain, Jones Rodriguez unspecified I25.2 Old myocardial infarction R94.31 Abnormal electrocardiogram [ECG] [EKG] Office Visit 02/28/2018 [facility] Latrice R07.9 Chest pain, 2:37p Assoc,pc OZILE Duggan unspecified Hospitalists I25.810 Atherosclerosis of CABG w/o angina pectoris Office Visit 02/27/2018 2:34p [facility] Carlo R07.9 Chest pain, Assoc,pc BRYN Hernandez unspecified Hospitalists I25.810 Atherosclerosis of CABG w/o angina pectoris E87.1 Hypo-osmolality and hyponatremia J45.909 Unspecified asthma, uncomplicated Office Visit 02/23/2018 3:15p Orthopedic Phillipgracie Abbott, M76.71 Peroneal Services Of MD adams, right [facility] leg Q66.7 Congenital pes cavus Office Visit 2017 3:00p [facility] Mavis Valentine I21.11 Stemi involving Of [facility] AT [facility] MD Joni, right coronary FACC, [facility] artery Office Visit 06/04/2017 9:40a [facility] Mavis Valentine I21.11 Stemi involving Of [facility] AT [facility] MD Joni, right coronary FACC, [facility] artery R07.89 Other chest pain Office Visit 02/19/2017 8:20a [facility] Mavis Valentine R07.89 Other chest Of [employer] AT [facility] MD Joni, pain FACC, [facility] I21.11 Stemi involving right coronary artery Office Visit 01/22/2017 11:00a [facility] Mavis Valentine I21.11 Stemi involving Of [employer] AT [facility] MD Joni, right coronary FACC, [facility] artery Office Visit 01/17/2017 10:37a [facility] Mavis Valentine I21.11 Stemi involving Of [employer] AT [facility] MD Joni, right coronary FACC, [facility] artery Office Visit 01/16/2017 12:00p [facility] Mavis Valentine I21.11 Stemi involving Of [employer] AT [facility] MD Joni, right coronary FACC, [facility] artery Office Visit 01/15/2017 10:30a [facility] Mavis Valentine I21.11 Stemi involving Of [employer] AT [facility] MD Joni, right coronary FACC, [facility] artery Office Visit 01/08/2015 8:15a Orthopedic Janiya Britton, 729.5 Pain In Limb Services Of M.Shane [facility] 729.5 Pain In Limb Office Visit 11/27/2014 2:45p Orth[facility] Services Janiya Britton, 729.5 Pain In Limb [facility] M.D. Office Visit 11/02/2014 9:30a Orthopedic Services Janiya Britton, 729.5 Pain In Limb Of [facility] M.D. Plan of Treatment Future Appointment(s):05/31/2019 3:30 pm - Lisa Nuñez NBibPBib at [facility]03/21/2019 9:30 am - Steve Lisa MD at [facility]03/03/2019 2:30 pm - Steve Lisa MD at [facility]02/23/2019 - Cheko Rodriguez M.D.R07.9 Chest pain, unspecifiedNew Orders:Stress Test, Exercise Nuclear, Ordered: 02/23/19I25.2 Old myocardial sbcloajioqF17.6 HypokalemiaNew Medication:Potassium Chloride ER 20 Meq - 1 by mouth every dayI25.10 Coronary arteriosclerosisFollow up:ov Lisa 9.19 ov ABHIJEET 8 m
[2019-03-09 17:00] VITALS: BP 121/75
--- NOTE | 2019-03-09 17:09 | UC ---
Throat Pain/Nasal Surinder HPI - HPI Summary HPI Summary: Pt c/o sinus pressure and pain X 3 days. Pt states that she "always gets sinus infections at this time of year". Pt takes daily xyzal for seasonal allergies. Pt reports generalized malaise, sinus fullness, PND< sinus pressure and pain. - History of Current Complaint Chief Complaint: UCRespiratory Stated Complaint: SINUS CONCERN Time Seen by Provider: 03/09/19 17:00 Hx Obtained From: Patient Hx Last Menstrual Period: 11/15/18 ?: No Onset/Duration: Gradual Onset, Lasting Days - 3, Still Present, Worse Since - onset Severity: Moderate Pain Intensity: 0 Cough: Nonproductive Associated Signs & Symptoms: Positive: Hoarseness, Sinus Discomfort Related History: Seasonal Allergies - Epiglottits Risk Factors Epiglottis Risk Factors: Negative - Allergies/Home Medications Allergies/Adverse Reactions: Allergies Allergy/AdvReac Type Severity Reaction Status Date / Time metoprolol [From Lopressor] Allergy HYPOTENSIVE Verified 03/09/19 17:00 AND SYNCOPAL Penicillins Allergy Hives Verified 03/09/19 17:00 STATINS Allergy SEVERE Uncoded 03/09/19 17:00 JOINT PAIN Home Medications: Home Medications Cholecalciferol (Vitamin D3) [Vitamin D3] 5,000 unit PO DAILY 03/09/19 [History Confirmed 03/09/19] Nitroglycerin TAB 0.3 MG* 0.3 mg SL Q5M PRN 03/09/19 [History Confirmed 03/09/19 ] PMH/Surg Hx/FS Hx/Imm Hx Previously Healthy: Yes - Surgical History Surgical History: Yes Surgery Procedure, Year, and Place: LASIK. APPENDIX. venoplasty in the lower legs-NO STENTS. CARDIAC STENT - 01/2017 - Family History Known Family History: Positive: Cardiac Disease, Diabetes, Other - breast CA, Non-Contributory - Social History Occupation: Employed Full-time Lives: With Family Alcohol Use: Daily Alcohol Amount: wine Substance Use Type: None Smoking Status (MU): Former Smoker Have You Smoked in the Last Year: No When Did the Patient Quit Smoking/Using Tobacco: 25 years ago - Immunization History Most Recent Influenza Vaccination: 07/2016 Most Recent Pneumonia Vaccination: NEVER Vaccination Up to Date: Yes Review of Systems All Other Systems Reviewed And Are Negative: Yes Constitutional: Positive: Fatigue Skin: Positive: Negative Eyes: Positive: Negative ENT: Positive: Sinus Congestion, Sinus Pain/Tenderness, Other - PND Respiratory: Positive: Cough, Other - "burning chest with cough" Cardiovascular: Positive: Negative Gastrointestinal: Positive: Negative Genitourinary: Positive: Negative Motor: Positive: Negative Neurovascular: Positive: Negative Musculoskeletal: Positive: Negative Neurological: Positive: Negative Psychological: Positive: Negative Is Patient Immunocompromised?: No Physical Exam Triage Information Reviewed: Yes Appearance: Ill-Appearing Vital Signs: Initial Vital Signs Temp 98.9 F 03/09/19 16:58 Pulse 77 03/09/19 16:58 Resp 16 03/09/19 16:58 BP 121/75 03/09/19 16:58 Pulse Ox 99 03/09/19 16:58 Vital Signs Reviewed: Yes Eye Exam: Normal ENT: Positive: Nasal congestion, Sinus tenderness Dental Exam: Normal Neck exam: Normal Respiratory Exam: Normal Respiratory: Positive: Normal breath sounds Cardiovascular Exam: Normal Musculoskeletal Exam: Normal Neurological Exam: Normal Psychological Exam: Normal Skin Exam: Normal Throat Pain/Nasal Course/Dx - Differential Dx/Diagnosis Differential Diagnosis/HQI/PQRI: Influenza, Sinusitis, URI Provider Diagnosis: Sinusitis Discharge - Sign-Out/Discharge Documenting (check all that apply): Patient Departure All imaging exams completed and their final reports reviewed: No Studies - Discharge Plan Condition: Stable Disposition: HOME Prescriptions: DOXYcycline CAP(*) [DOXYcycline 100MG CAP(*)] 100 mg PO Q12H #20 cap Fluconazole 150 MG TAB* [Diflucan 150 MG TAB*] 150 mg PO UC ONCE #2 tablet Patient Education Materials: Sinusitis (ED) Referrals: Doni Saucedo MD [Primary Care Provider] - If Needed Additional Instructions: Please follow up with your PCP as needed. - Billing Disposition and Condition Condition: STABLE Disposition: Home
== END 2019-03-09 17:23 | disposition home or self-care (01) ==
LOC: UCCORT 16:40
DX: J32.9 Chronic sinusitis, unspecified (principal); Z87.891 Personal history of nicotine dependence
CPT/HCPCS: 99212; G0463

== ENCOUNTER 2019-03-21 08:03 | Day surgery (SDC) | payer BC ==
[~2019-03-21 08:03] MED LIST changes: +Acetaminophen TAB* 325 MG PO ONE; +Buffered Lidocaine 1% SYRIN* 1 ML/SYRINGE INTRADERM ONE; +Dexamethasone IV* 4 MG/ML 1 ML (4 MG) IV SLOW PU ONE; +Famotidine TAB* 20 MG PO ONE; +Gabapentin CAP(*) 300 MG PO ONE; -Iohexol 350* (CONTRAST) 500 ML MDV IV ONE; +Lactated Ringers 1000 ML Bag* 1,000 ML IV SCH; -Morphine INJ* 2 MG/ML 1 ML SYRINGE IV ONE; -Nitroglycerin TAB 0.4 MG* 0.4 MG TAB SL ONE; +celeCOXIB CAP* 200 MG PO ONE
[2019-03-21] MEDS ORDERED: celeCOXIB CAP* 100 MG ONE (08:20)
[2019-03-21] MEDS ORDERED: Gabapentin CAP(*) 300 MG ONE (08:20)
[2019-03-21] MEDS ORDERED: Famotidine TAB* 20 MG ONE (08:21)
[2019-03-21] MEDS ORDERED: Dexamethasone IV* 4 MG/ML 1 ML (4 MG) ONE (08:21)
[2019-03-21] MEDS ORDERED: Acetaminophen TAB* 325 MG ONE (08:21)
[2019-03-21] MEDS ORDERED: ceFAZolin 2 GM in NS PREMIX(*) 2 GM/100 ML BAG IVPB ONE (08:21)
[2019-03-21] MEDS ORDERED: fentaNYL* 50 MCG/ML 2 ML VIAL (100 MCG VIAL) ONE (08:30)
[2019-03-21] MEDS ORDERED: Midazolam* 1 MG/ML 2 ML VIAL (2 MG) ONE (08:30)
[2019-03-21] MEDS ORDERED: Propofol* 10 MG/ML 20 ML BTL ONE (08:30)
[2019-03-21] MEDS ORDERED: ROPIVACAINE 5 MG/ML 30 ML BTL (0.5%) ONE (09:00)
[2019-03-21] MEDS ORDERED: Lidocaine 1% MPF ** 5 ML VIAL ONE (09:01)
[2019-03-21] MEDS ORDERED: Bupivacaine 0.25% SDV* 30 ML ONE (09:57)
[2019-03-21] MEDS ORDERED: EPHEDrine (Pressors)* 50 MG/ML VIAL ONE (11:21)
[2019-03-21] MEDS ORDERED: oxyCODONE/Acetamin 5/325 MG* TAB PO PRN (11:27)
[2019-03-21] MEDS ORDERED: Ketorolac INJ* 30 MG/ML 1 ML VIAL IV PRN (11:27)
[2019-03-21] MEDS ORDERED: Naloxone* 0.4 MG/ML 1 ML VIAL IV PRN (11:27)
[2019-03-21] MEDS ORDERED: fentaNYL* 50 MCG/ML 2 ML VIAL (100 MCG VIAL) IV PRN (11:27)
[2019-03-21] MEDS ORDERED: HYDROmorphone INJ1* 1 MG/ML SYRINGE IV PRN (11:27)
[2019-03-21] MEDS ORDERED: methylPREDNISolone ACETATE 80* 80 MG/ML 1 ML VIAL ONE (11:28)
[2019-03-21] MEDS ORDERED: Ketorolac INJ* 30 MG/ML 1 ML VIAL ONE (13:01)
[2019-03-21] MEDS ORDERED: DiMENhydriNATE IV* 50 MG/ML VIAL ONE (13:12)
[2019-03-21] MEDS: DiMENhydriNATE IV* 50 MG/ML VIAL IV PUSH PRN ×2 (13:13→13:28)
[2019-03-21 14:02] VITALS: BP 117/78
--- NOTE | 2019-03-21 14:05 | OP ---
CC: PCP; [employer] OPERATIVE REPORT: DATE OF OPERATION: 03/21/19 DATE OF : 66 SURGEON: Steve Lisa MD AIR DRIER: BRYN Childs An logging assistant was needed for the entirety of the case to help with positioning, retraction, and was utilized throughout all portions of the case. ANESTHESIOLOGIST: Dr. Beck. ANESTHESIA: General with interscalene block. PRE-OP DIAGNOSES: 1. Left shoulder impingement. 2. Acromioclavicular joint arthritis. 3. Superior labral tear with bicipital tendinitis. POST-OP DIAGNOSES: 1. Left shoulder impingement. 2. Acromioclavicular joint arthritis. 3. Superior labral tear with bicipital tendinitis. 4. Calcific tendinitis. OPERATIVE PROCEDURE: Left shoulder arthroscopy with: 1. extensive glenohumeral debridement including debridement of subscap and tenotomy of supraspinatus 2. subacromial decompression with acromioplasty 3. distal clavicle excision 4. subacromial injection of depomedrol 80 mg 5. open biceps tenodesis COMPLICATIONS: None. ESTIMATED BLOOD LOSS: Minimal. IMPLANTS USED: One 2.8 mm Q-Fix. INDICATIONS: Negro Castellano is a 48-year-old female with persistent shoulder pain refractory to conservative management. She has AC joint arthritis, bicipital tendinitis, and impingement. She has failed conservative management and elected to proceed with surgical treatment. She underwent medical risk optimization due to her coronary history. After extensive discussion of the risks and benefits of surgical versus nonoperative treatment, she has elected to proceed with surgical treatment. DESCRIPTION OF PROCEDURE: The patient was greeted in the preoperative area by the attending surgeon. Correct extremity was marked and consent was confirmed. She underwent interscalene nerve block by the anesthesiologist, after which she was brought back to the operating suite where she was placed in the supine position on the operating table. She underwent anesthesia and then she was placed in the right lateral decubitus position with all bony prominences padded. She was secured with a pegboard. An axillary roll was placed. The right arm was prepped and draped in the usual sterile fashion beginning with chlorhexidine soap, scrub, and alcohol wipe, and a final prep with ChloraPrep. After appropriate surgical pause indicating side, site, procedure, and administration of antibiotics, the standard posterolateral portal was made sharply with #11 blade. Scope was introduced into the joint and the joint was examined. There were synovitic changes about the shoulder. The anterior, posterior and superior labrum had mild fraying. The superior labrum had type 2 tear. The anterior portal was made in an outside-in fashion. Shaver was used debride back the anterior, posterior and superior labrum. Biceps was taken through range of motion and had synovitis. The undersurface of the rotator cuff looked good without any obvious tearing. The subscapularis had some mild fraying. This was debrided back using the shaver. The biceps was tenotomized for later tenodesis. The inferior recess was intact. There were some mild chondral changes posteriorly about the humeral head. Once the debridement was complete, attention was directed to the subacromial space. With the scope positioned in the subacromial space, lateral portal was made in an outside-in fashion. Shaver was used to debride back the abundant bursa that was present. The undersurface of the acromion was skeletonized using electrocautery device. A 4-0 oval lucy was then used to do an acromioplasty for the moderate- sized anterolateral spur. Once this was taken back all the way to the AC joint, it had obvious stenosis. The lucy was brought to the anterior portal and the 4-0 oval lucy was used to do distal clavicle excision. We removed approximately 8 mm of distal clavicle. Care was taken to prevent CC ligament. There was a calcified meniscus that was also removed using biters and debora. Hemostasis was obtained. All fluid and debris was removed from this portion of the case. The rotator cuff was examined. Any of the bursa, there was a lot of hemorrhage that was present in one portion of the cuff and there was evidence of small calcific lesion. This measured about 5 mm x 5 mm. Then, an 18-gauge needle was used to gently unroof and tenotomize the tendon to remove the calcific lesion. This helped to remove the calcium build up there. The remainder of the cuff looked okay. Decision was made to not do any kind of repair. After the bursectomy and the debridement of the calcific lesion was complete, an 18-gauge needle was then placed under arthroscopic visualization into the subacromial space for later placement of Depo-Medrol injection. The attention was directed to the biceps. The bed was airplaned to the side. The anterior aspect of the shoulder was prepped again using ChloraPrep. A 15- blade was used to make an incision in line with the biceps tendon. Soft tissues were carefully exposed to expose the pec tendon, which was elevated. The biceps was then brought through the wound and the groove was prepared in usual fashion with electrocautery device, red ball rasp and osteotome. The Q- Fix drill guide was then drilled unicortically and the Q-Fix was deployed with excellent purchase. The sutures were then passed through the biceps approximately 1 cm proximal to the musculotendinous junction. The biceps was then shuttled back to the wound and secured. The wounds were copiously irrigated with sterile saline. The anterior wound was closed in layers with 3- 0 Monocryl. The skin was closed with 3-0 nylon. Sterile dressings were applied. Cryo/Cuff and UltraSling were applied. She was awoken from anesthesia and transferred to the PACU in stable condition. POSTOPERATIVE PLAN: She will be nonweightbearing, in a sling for 4 weeks. Start therapy next week. Discharged on pain medication. DVT prophylaxis was considered, but deferred due to no previous personal or family history. I will see the patient back in 10 to 14 days. [id number]/[facility] #: [id number] ALEXA
== END 2019-03-21 14:45 | disposition home or self-care (01) ==
LOC: OREAST 08:03
PROVIDERS: ATTEND Orthopaedic Surgery
DX: M75.42 Impingement syndrome of left shoulder (principal); M19.012 Primary osteoarthritis, left shoulder; M24.812 Other specific joint derangements of left shoulder, not elsewhere classified; M75.22 Bicipital tendinitis, left shoulder; M75.82 Other shoulder lesions, left shoulder; G89.18 Other acute postprocedural pain; I25.10 Atherosclerotic heart disease of native coronary artery without angina pectoris; I25.2 Old myocardial infarction; Z95.5 Presence of coronary angioplasty implant and graft; J45.909 Unspecified asthma, uncomplicated; M19.90 Unspecified osteoarthritis, unspecified site
CPT/HCPCS: 81025; A9270-GY; C1776; J0690; J1040; J1100; J1240; J1885; J2250; J2704; J2795; J3010; J3490

== ENCOUNTER 2019-08-30 15:29 | Emergency (ER) | payer OTHER, BC ==
--- OUTSIDE RECORDS SUMMARY | 2019-08-30 15:42 | XMS REPORT | Continuity of Care Document ---
:1970 External Reference #:[id number] Author Name Steve Lisa MD (transmitted by agent of provider Mayte Watkins) Address [address] [facility], [place] [address] Care Team Providers Name Role Phone Doni Saucedo MD - Family Medicine Care Team Information Triage Assistant [phone] Problems Active Problems Provider Date Acute myocardial infarction of Mavis Quinones MD, [facility], Onset: 01/22/2017 inferior wall [facility] Congenital pes cavus Phillip Abbott MD Onset: 02/23/2018 Peroneal tendinitis, right leg Phillip Abbott MD Onset: 02/23/2018 Chest pain BRYN Royal Onset: 02/27/2018 Arteriosclerosis of coronary artery BRYN Royal Onset: 02/27/2018 bypass graft Hypo-osmolality and or hyponatremia BRYN Royal Onset: 02/27/2018 Asthma without status asthmaticus BRYN Royal Onset: 02/27/2018 Old myocardial infarction Mavis Quinones MD, [facility], Onset: 03/18/2018 [facility]SC[facility] Injury of shoulder region Steve Lisa MD Onset: 04/08/2018 Localized, secondary osteoarthritis of Steve Lisa MD Onset: 04/08/2018 the shoulder region Strain of muscle(s) and tendon(s) of Steve Lisa MD Onset: 04/08/2018 the rotator cuff of left shoulder, subsequent encounter Arthralgia of the upper arm Steve Lisa MD Onset: 04/08/2018 Bicipital tenosynovitis Steve Lisa MD Onset: 04/01/2019 Localized, primary osteoarthritis of Steve Lisa MD Onset: 04/01/2019 the shoulder region Disorder of shoulder Steve Lisa MD Onset: 04/01/2019 Social History Type Date Description Comments Sex Unknown Tobacco Use Start: Unknown End: Former Cigarette Smoker Unknown Smoking Status Reviewed: 08/05/19 Former Cigarette Smoker ETOH Use Consumes 1 [...] Medications SIG Qnty Indications Ordering Date Provider Diclofenac Sodium apply up to 4 300gm M75.42 Steve Lisa, 08/05/2019 1% Gel times a day to MD left shoulder as needed Potassium Chloride ER 1 by mouth 90tabs E87.6 Cheko Ramírez 02/23/2019 20Meq every day Jones Rodriguez Tablets ER Hydrochlorothiazide 1 tablet by 90tabs Cheko Ramírez 03/01/2018 25mg Tablets mouth daily Jones Rodriguez Nitroglycerin 1 sl q5mins x3 25tabs Lisa Nuñez, 01/17/2017 0.4mg Tablets Sub as needed for N.P. chest pain Garlic Oil daily Unknown 500mg Tablets Epipen 2-Ryan use as directed Unknown 0.3mg/0.3ML Solution Auto-Inject Estroven daily Unknown Fish Oil Double Strength 1 gel cap daily Unknown With [place] 3 by mouth 1200mg Capsules Magnesium Oxide 1 by mouth Unknown 400mg Tablets every day Cranberry Plus Vitamin C one cap PO bid Unknown 8037-89-4mc-mg-Unit Capsules Vitamin C-Trinity Hips daily at hs [...] Unknown 10mg PO at hs History Medications Percocet 1 - 2 tabs by 30tabs Steve Lisa MD 03/21/2019 - 5-325mg mouth every 4 - 6 04/14/2019 Tablets hours as needed for pain. Medications Administered in Office Medication SIG Qnty Indications Ordering Provider Date Technetium TC 99M TetrofosmAlin dong M.D. 03/03/2019 Per Unit Dose Up To 40 Millicuries Injection Technetium TC 99M TetrofosminAlin M.D. 03/03/2019 Per Unit Dose Up To 40 Millicuries Injection Triamcinolone (Kenalog) Steve Lisa MD 10/12/2018 Injection Triamcinolone (Kenalog) Steve Lisa MD 04/08/2018 Injection Immunizations Description No Information Available Vital Signs Date Vital Result Comment 08/05/2019 10:55am Height 67 inches 5'7" Weight 164.00 lb stated Heart Rate 70 /min BP Systolic 118 mmHg BP Diastolic 70 mmHg Respiratory Rate 12 /min Pain Level 3 BMI (Body Mass Index) 25.7 kg/m2 07/26/2019 3:45pm Height 67 inches 5'7" Weight 158.00 lb Heart Rate 68 /min Respiratory Rate 14 /min Body Temperature 96.9 F Pain Level 4 BMI (Body Mass Index) 24.7 kg/m2 Results Test Acquired Date Facility Test Result H/L Range Note Basic Metabolic 03/11/2019 [facility] Sodium 141 mmol/L Normal 135-[address] [place] [address] [phone] Potassium 4.6 mmol/L Normal 3.5-5.0 Chloride 106 mmol/L Normal 101-111 Co2 Carbon Dioxide 31 mmol/L Normal 22-32 Anion Gap 4 mmol/L Normal 2-11 Glucose 88 mg/dL Normal 70-100 Blood Urea Nitrogen 16 mg/dL Normal 6-24 Creatinine 0.83 mg/dL Normal 0.51-0.95 BUN/Creatinine Ratio 19.3 Normal 8-20 Calcium 9.5 mg/dL Normal 8.6-10.3 Egfr Non- 72.8 >60 Egfr 88.0 >60 1 CBC Auto 02/12/2019 [facility] White Blood 5.7 10^3/uL Normal 3.5-10.[address] [place] [address] [phone] Red Blood Count 3.91 10^6/uL Normal 3.70-4.87 Hemoglobin 12.2 g/dL Normal 12.0-16.0 Hematocrit 36 % Normal 35-47 Mean Corpuscular Volume 93 fL Normal 80-97 Mean Corpuscular Hemoglobin 31 pg Normal 27-31 Mean Corpuscular HGB Conc 34 g/dL Normal 31-36 Red Cell Distribution Width 13 % Normal 10.5-15 Platelet Count 182 10^3/uL Normal 150-450 Mean Platelet Volume 9.1 fL Normal 7.4-10.4 Abs Neutrophils 3.6 10^3/uL Normal 1.5-7.7 Abs Lymphocytes 1.5 10^3/uL Normal 1.0-4.8 Abs Monocytes 0.4 10^3/uL Normal 0-0.8 Abs Eosinophils 0.1 10^3/uL Normal 0-0.6 Abs Basophils 0.0 10^3/uL Normal 0-0.2 Abs Nucleated RBC 0.0 10^3/uL Granulocyte % 64.0 % Lymphocyte % 25.7 % Monocyte % 7.2 % Eosinophil % 2.5 % Basophil % 0.6 % Nucleated Red Blood Cells % 0.0 Lipid Panel - 02/12/2019 [facility] Creatine 178 U/L Normal 10 -[address] Kinase(CK) [place] [address] [phone] Comp Metabolic 02/12/2019 [facility] Sodium 138 Normal 135- [address] mmol/[place] [address] [phone] Potassium 3.4 mmol/L Low 3.5-5.0 Chloride 102 mmol/L Normal 101-111 Co2 Carbon Dioxide 31 mmol/L Normal 22-32 Anion Gap 5 mmol/L Normal 2-11 Glucose 92 mg/dL Normal 70-100 Blood Urea Nitrogen 16 mg/dL Normal 6-24 Creatinine 0.83 mg/dL Normal 0.51-0.95 BUN/Creatinine Ratio 19.3 Normal 8-20 Calcium 9.3 mg/dL Normal 8.6-10.3 Total Protein 6.5 g/dL Normal 6.4-8.9 Albumin 4.3 g/dL Normal 3.2-5.2 Globulin 2.2 g/dL Normal 2-4 Albumin/Globulin Ratio 2.0 Normal 1-3 Total Bilirubin 1.40 mg/dL High 0.2-1.0 Alkaline Phosphatase 39 U/L Normal 34-104 Alt 17 U/L Normal 7-52 Ast 21 U/L Normal 13-39 Egfr Non- 72.8 >60 Egfr 88.0 >60 2 Lipid Profile 02/12/2019 [facility] Triglycerides 60 mg/dL 3 (Trig/Chol/HDL) [address] [place] [address] [phone] Cholesterol 171 mg/dL 4 HDL Cholesterol 62.0 mg/dL 5 LDL Cholesterol 97 mg/dL 6 1 Because ethnic data is not always readily [...] 15-29 5 Kidney failure <15 (or dialysis) 2 Because ethnic data is not always [...] High: >189 Procedures Date Code Description Status 08/05/2019 55060 Inject/Drain Joint/Bursa Major W/O US Completed 03/21/2019 39242 Arthroscopy,Shoulder Decompression Of Subacromial Space Completed W/Acromio 03/21/2019 24803 Arthroscopy,Shoulder Decompression Of Subacromial Space Completed W/Acromio 03/21/2019 65950 Arthroscopy,Shoulder,Distal Claviculectomy Incl Dist Completed Articular SR 03/21/2019 41157 Arthroscopy,Shoulder,Distal Claviculectomy Incl Dist Completed Articular SR 03/21/2019 33188 Tenodesis Biceps Long Tendon Completed 03/21/2019 34810 Tenodesis Biceps Long Tendon Completed 03/03/2019 29569 Stress Test Completed 03/03/2019 80944 Myocardial Perfusion Imaging Tomographic (Spect) Multiple Completed Studies 02/23/2019 45384 EKG Tracing & Interpretation Completed Medical Devices Description No Information Available Encounters Type Date Location Provider Dx Diagnosis Office Visit 02/23/2019 [facility] Cheko Ramírez R07.9 Chest pain, 3:00p Jones Rodriguez unspecified I25.2 Old myocardial infarction E87.6 Hypokalemia I25.10 Athscl heart disease of [place] coronary artery w/o ang pctrs Assessments Date Code Description Provider 08/05/2019 M75.42 Impingement syndrome of left shoulder Steve Lisa MD 07/26/2019 M75.42 Impingement syndrome of left shoulder Steve Lisa MD 07/26/2019 M75.22 Bicipital tendinitis, left shoulder Steve Lisa MD 06/14/2019 M75.42 Impingement syndrome of left shoulder Steve Lisa MD 06/14/2019 M19.012 Primary osteoarthritis, left shoulder Steve Lisa MD 06/14/2019 M75.22 Bicipital tendinitis, left shoulder Steve Lisa MD 06/14/2019 Z47.89 Encounter for other orthopedic Steve Lisa MD aftercare 04/29/2019 M75.42 Impingement syndrome of left shoulder Steve Lisa MD 04/29/2019 M19.012 Primary osteoarthritis, left shoulder Steve Lisa MD 04/29/2019 M75.22 Bicipital tendinitis, left shoulder Steve Lisa MD 04/29/2019 Z47.89 Encounter for other orthopedic Steve Lisa MD aftercare 04/01/2019 M75.42 Impingement syndrome of left shoulder Steve Lisa MD 04/01/2019 M19.012 Primary osteoarthritis, left shoulder Steve Lisa MD 04/01/2019 M75.22 Bicipital tendinitis, left shoulder Steve Lisa MD 04/01/2019 Z47.89 Encounter for other orthopedic Steve Lisa MD aftercare 03/21/2019 M75.42 Impingement syndrome of left shoulder Reza Merida PA-C 03/21/2019 M75.42 Impingement syndrome of left shoulder Steve Lisa MD 03/21/2019 M19.012 Primary osteoarthritis, left shoulder ELEANOR ChildsC 03/21/2019 M19.012 Primary osteoarthritis, left shoulder Steve Lisa MD 03/21/2019 M75.22 Bicipital tendinitis, left shoulder ELEANOR ChildsC 03/21/2019 M75.22 Bicipital tendinitis, left shoulder Steve Lisa MD 03/21/2019 S46.012D Strain of musc/tend the rotator cuff Reza Merida PA-C of left shoulder, subs 03/21/2019 S46.012D Strain of muscle(s) and tendon(s) of Steve Lisa MD the rotator cuff of left shoulder, subsequent encounter 03/21/2019 M75.32 Calcific tendinitis of left shoulder Reza Merida PA-C 03/21/2019 M75.32 Calcific tendinitis of left shoulder Steve Lisa MD 03/03/2019 R07.9 Chest pain, unspecified Alin Peña M.D. 03/03/2019 S46.112D Strain of muscle, fascia and tendon Steve Lisa MD of long head of biceps, 03/03/2019 R07.9 Chest pain, unspecified Linnea Kunz M.D. 03/03/2019 S46.012D Strain of muscle(s) and tendon(s) of Steve Lisa MD the rotator cuff of lef 03/03/2019 I25.2 Old myocardial infarction Linnea Kunz M.D. 03/03/2019 I25.2 Old myocardial infarction Alin Peña M.D. 03/03/2019 I25.10 Coronary arteriosclerosis Linnea Kunz M.D. 03/03/2019 I25.10 Coronary arteriosclerosis Alin Peña M.D. 02/23/2019 R07.9 Chest pain, unspecified Cheko Rodriguez M.D. 02/23/2019 I25.2 Old myocardial infarction Cheko Rodriguez M.D. 02/23/2019 E87.6 Hypokalemia Cheko Rodriguez M.D. 02/23/2019 I25.10 Coronary arteriosclerosis Cheko Rodriguez M.D. Plan of Treatment 08/05/2019 - Steve Lisa, MDM75.42 Impingement syndrome of left shoulderNew Medication:Diclofenac Sodium 1 % - apply up to 4 times a day to left shoulder as neededFollow up:Follow up: 3-4 weeks Functional Status Description No Information Available Mental Status Description No Information Available Referrals Refer to Reason for Referral Status Appt Date Krunal Kim MD neck pain after fall Patient Declined [address] [place] [address] [phone]
--- OUTSIDE RECORDS SUMMARY | 2019-08-30 15:42 | XMS REPORT | Continuity of Care Document ---
:1970 External Reference #:[id number] Author Name Doni Andrea M.D. Address [address] [place] [address] Care Team Providers Name Role Phone Doni Saucedo M.D. 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 - Cardiovascular Care Team Information Enamel Drier [phone] Disease Problems Active Problems Provider Date Migraine Onset: Asthma Onset: Seasonal allergy Onset: Combined form of senile cataract Doni Andrea M.D. Onset: 08/21/2017 Vitreous degeneration Doni Andrea M.D. Onset: 08/21/2017 Presbyopia Doni Andrea M.D. Onset: 08/21/2017 Tear film insufficiency Doni Andrea M.D. Onset: 08/21/2017 Social History Type Date Description Comments Sex Unknown ETOH Use Occasionally consumes alcohol Recreational Drug Use Denies Drug Use Tobacco Use Start: Unknown Patient has never smoked Smoking Status Reviewed: 08/30/19 Patient has never smoked Allergies, Adverse Reactions, Alerts Active Allergies Reaction Severity Comments Date Penicillin 08/21/2017 Statins 08/23/2018 Lopressor 08/23/2018 Inactive Allergies NKDA 08/20/2017 Medications Active Medications SIG Qnty Indications Ordering Date Provider Artificial Tears as needed Doni Su 08/29/2019 1-0.3% Solution Jones Andrea Montelukast Sodium Take One Tablet Unknown 10mg Tablets By Mouth Every Day Nitroglycerin Place One Unknown 0.4mg Tablets Sub Tablet Under The Tongue Every 5 Minutes For Up To 3 Doses as Mometasone Furoate Unknown 50mcg/Act Suspension Laure Aspirin Ec Low Dose Unknown 81mg Tablets DR Mckeon Fish Oil With [place] 3 Unknown [id number] Capsules Vitamin C Unknown W/Trinity Hips 1000mg-Unit Capsules Cranberry-Vitamin C Unknown 4200mg Capsules Albuterol Sulfate as needed Unknown (5mg/ML) 0.5% Nebulizer Hydrochlorothiazide Take 1 2 To 1 Unknown 25mg Tablets Tablet By Mouth Once Daily as Needed Taking 1 Tablet Every Other Magnesium Oxide Unknown 400(241.3Mg) mg Tablets Estroven Energy Unknown Tablets Diclofenac Sodium Apply 1 2 Grams Unknown 1% Gel Up To Four Times A Day To Left Shoulder as Needed Immunizations Description No Information Available Vital Signs Description No Information Available Results Description No Information Available Procedures Description No Information Available Medical Devices Description No Information Available Encounters Description No Information Available Assessments Date Code Description Provider 08/30/2019 H25.813 Combined forms of age-related cataract, Doni Andrea M.D. bilateral 08/30/2019 H04.123 Dry eye syndrome of bilateral lacrimal Doni Andrea M.D. glands 08/30/2019 H43.813 Vitreous degeneration, bilateral Doni Andrea M.D. Plan of Treatment 08/30/2019 - Doni Andrea M.D.H25.813 Combined forms of age-related cataract , bilateralComments:Smoking can increase the risk of developing or worsening any eye related disease, as well as affect your overall health. If you are a smoker, we strongly recommend that you quit.If you are not a smoker, we strongly recommend that you do not start. You have been diagnosed with cataracts. If you are happy with your vision as it is now, then we will see you at your next scheduled appointment. If you feel like your vision is getting worse before your scheduled appointment, please call [facility] or [facility] .Follow up:1 Year Follow Up Diagnostic Refraction You can expect to have your eyes dilated at your next visit.If Dr. Andrea orders any additional testing , it may require extra time. We recommend that you bring sunglasses, as dilation drops often make you light sensitive until they wear off. We always recommend you bring someone to drive you home if you are uncomfortable driving with your eyes dilated. If you have any questions before your next visit, feel free to call our office at .H04.123 Dry eye syndrome of bilateral lacrimal glandsComments:Both of your eyes appear to be dry. Use artificial tears as directed. You can use the tears more often if you are reading a book or are on the computer, as we tend to blink less, making our eyes dry out more.[facility] offers a few items in our optical department to help alleviate dry eye symptoms. Systane and Refresh are good brands of tears you can use. You can pick these up at any pharmacy and they do not require a prescription.H43813 Vitreous degeneration, bilateralComments:You have a Posterior Vitreous Detachment. If you have any changes in your floaters or flashing lights, please contact this office. Functional Status Description No Information Available Mental Status Description No Information Available Referrals Description No Information Available
--- OUTSIDE RECORDS SUMMARY | 2019-08-30 15:42 | XMS REPORT | Continuity of Care Document ---
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 Active Problems Provider Date Acute myocardial infarction of Mavis Quinones MD, [facility], Onset: 01/22/2017 inferior wall [facility] Congenital pes cavus Phillip Abbott MD Onset: 02/23/2018 Peroneal tendinitis, right leg Phillip Abbott MD Onset: 02/23/2018 Chest pain BRYN Royal Onset: 02/27/2018 Arteriosclerosis of coronary artery BRYN Royal Onset: 02/27/2018 bypass graft Hypo-osmolality and or hyponatremia BRYN Royal Onset: 02/27/2018 Asthma without status asthmaticus BRYN Royal Onset: 02/27/2018 Old myocardial infarction Mavis Quinones MD, [facility], Onset: 03/18/2018 [facility]SCAI Injury of shoulder [...] Former Cigarette Smoker Unknown Smoking Status Reviewed: 07/26/19 Former Cigarette Smoker ETOH Use Consumes 1 [...] Strength 1 gel cap daily Unknown With [place] 3 by mouth 1200mg Capsules Magnesium Oxide 1 by mouth Unknown 400mg Tablets every day Cranberry Plus Vitamin C one cap PO bid Unknown 5866-18-5tz-mg-Unit Capsules Vitamin C-Trinity Hips daily at hs [...] Indications Ordering Provider Date Technetium TC 99M TetrofosminAlin M.D. 03/03/2019 Per Unit Dose Up To 40 Millicuries Injection Technetium TC 99M TetrofosminAlin M.D. 03/03/2019 Per Unit Dose Up To 40 Millicuries Injection Triamcinolone (Kenalog) Steve Lisa MD 10/12/2018 Injection Triamcinolone (Kenalog) Steve Lisa MD 04/08/2018 Injection Immunizations Description No Information Available Vital Signs Date Vital Result Comment 07/26/2019 3:45pm Height 67 inches 5'7" Weight 158.00 lb Heart Rate 68 /min Respiratory Rate 14 /min Body Temperature 96.9 F Pain Level 4 BMI (Body Mass Index) 24.7 kg/m2 06/14/2019 3:11pm Height 67 inches 5'7" Weight 158.00 lb Heart Rate 80 /min BP Systolic Sitting 136 mmHg BP Diastolic Sitting 86 mmHg Pain Level 1 BMI (Body Mass Index) 24.7 kg/m2 Results Test Acquired Date Facility Test Result H/L Range Note Basic Metabolic 03/11/2019 [facility] Sodium 141 mmol/L Normal 135-145 Panel [address] [place] [address] [phone] Potassium 4.6 mmol/L Normal 3.5-5.0 Chloride 106 mmol/L Normal 101-111 Co2 Carbon Dioxide 31 mmol/L Normal 22-32 Anion Gap 4 mmol/L Normal 2-11 Glucose 88 mg/dL Normal 70-100 Blood Urea Nitrogen 16 mg/dL Normal 6-24 Creatinine 0.83 mg/dL Normal 0.51-0.95 BUN/Creatinine Ratio 19.3 Normal 8-20 Calcium 9.5 mg/dL Normal 8.6-10.3 Egfr Non- 72.8 >60 Egfr 88.0 >60 1 CBC Auto 02/12/2019 [facility] White Blood 5.7 10^3/uL Normal 3.5-10.[address] [place] [address] [phone] Red Blood Count 3.91 10^6/uL Normal 3.70-4.87 [...] Cells % 0.0 Lipid Panel - 02/12/2019 [facility] Creatine 178 U/L Normal 10 -[address] Kinase(CK) [place] [address] [phone] Comp Metabolic 02/12/2019 [facility] Sodium 138 Normal 135- [address] mmol/[place] [address] [phone] Potassium 3.4 mmol/L Low 3.5-5.0 Chloride 102 [...] Egfr 88.0 >60 2 Lipid Profile 02/12/2019 [facility] Triglycerides 60 mg/dL 3 (Trig/Chol/HDL) [address] [place] [address] [phone] Cholesterol 171 mg/dL 4 HDL Cholesterol 62.0 [...] High: >189 Procedures Date Code Description Status 03/21/2019 88434 Arthroscopy,Shoulder Decompression Of Subacromial Space Completed W/Acromio 03/21/2019 45847 Arthroscopy,Shoulder Decompression Of Subacromial Space Completed W/Acromio 03/21/2019 53064 Arthroscopy,Shoulder,Distal Claviculectomy Incl Dist Completed Articular SR 03/21/2019 20373 Arthroscopy,Shoulder,Distal Claviculectomy Incl Dist Completed Articular SR 03/21/2019 20213 Tenodesis Biceps Long Tendon Completed 03/21/2019 48535 Tenodesis Biceps Long Tendon Completed 03/03/2019 19378 Stress Test Completed 03/03/2019 07157 Myocardial Perfusion Imaging Tomographic (Spect) Multiple Completed Studies 02/23/2019 29577 EKG Tracing & Interpretation Completed Medical Devices Description No Information Available Encounters Type Date Location Provider Dx Diagnosis Office Visit 02/23/2019 [facility] Cheko Ramírez R07.9 Chest pain, 3:00p Jones Rodriguez unspecified I25.2 Old myocardial infarction E87.6 Hypokalemia I25.10 Athscl heart disease of [place] coronary artery w/o ang pctrs Assessments Date Code Description Provider 07/26/2019 M75.42 Impingement syndrome of left shoulder [...] MD 03/21/2019 M19.012 Primary osteoarthritis, left shoulder Reza Merida PA-C 03/21/2019 M19.012 Primary osteoarthritis, left shoulder Steve Lisa MD 03/21/2019 M75.22 Bicipital tendinitis, left shoulder Reza Merida PA-C 03/21/2019 M75.22 Bicipital tendinitis, left shoulder Steve [...] arteriosclerosis Linnea Kunz M.D. 03/03/2019 I25.10 Coronary aliceosclerosis Alin Peña M.D. 02/23/2019 R07.9 Chest pain, unspecified Cheko Rodriguez M.D. 02/23/2019 I25.2 Old myocardial infarction Cheko Rodriguez M.D. 02/23/2019 E87.6 Hypokalemia Cheko Rodriguez M.D. 02/23/2019 I25.10 Coronary arteriosclerosis Cheko Rodriguez M.D. Plan of Treatment 07/26/2019 - Steve Lisa, MDM75.42 Impingement syndrome of left shoulderNew Xrays:MRI Shoulder Left W/O, Ordered: 07/26/19Follow up:Follow up: after MRIM75.22 Bicipital tendinitis, left shoulder Functional Status Description No Information Available Mental Status Description No Information Available Referrals Refer to Reason for Referral Status Appt Date Krunal Kim MD neck pain after fall Patient Declined [address] [place] [address] [phone]
[2019-08-30 15:48] VITALS: BP 119/87
[2019-08-30] MEDS ORDERED: Naproxen TAB* 250 MG PO ONE (17:05)
--- NOTE | 2019-08-30 17:57 | UC ---
Shoulder Pain HPI - HPI Summary HPI Summary: 48-year-old female presents with complaints of left shoulder pain. States earlier today at work she was descending a ramp when she slipped and tried catching herself with her left arm causing a "wrenching" of her left shoulder. Reports pain to the left trapezius, posterior and lateral shoulder which radiates into the proximal upper arm. Range of motion is limited due to pain. States she had surgery by Dr. Wagner on March 21 for a bicep tear repair and arthroscopy of the shoulder. Denies any numbness or tingling. - History of Current Complaint Chief Complaint: UCUpperExtremity Stated Complaint: SHOULDER, ARM NECK PAIN FROM FALLING Time Seen by Provider: 08/30/19 16:29 Hx Obtained From: Patient Hx Last Menstrual Period: 11/15/18 Pain Intensity: 4 - Allergies/Home Medications Allergies/Adverse Reactions: Allergies Allergy/AdvReac Type Severity Reaction Status Date / Time metoprolol [From Lopressor] Allergy Severe HYPOTENSIVE Verified 08/30/19 15:47 AND SYNCOPAL Penicillins Allergy Mild Hives Verified 08/30/19 15:47 STATINS Allergy Intermediate SEVERE Uncoded 08/02/19 14:43 JOINT PAIN Home Medications: Home Medications Anti Inflammatory Cream 1 tab PO Q6HR 08/30/19 [History Confirmed 08/30/19] PMH/Surg Hx/FS Hx/Imm Hx Previously Healthy: Yes Cardiovascular History: Hypertension Respiratory History: Asthma - Surgical History Surgical History: Yes Surgery Procedure, Year, and Place: LASIK. APPENDIX. venoplasty in the lower legs-NO STENTS. CARDIAC STENT - 01/2017. left shoulder rtc repair, bicep repair - Family History Known Family History: Positive: Cardiac Disease, Diabetes, Other - breast CA - Social History Occupation: Employed Full-time Lives: With Family Alcohol Use: Daily Alcohol Amount: wine one glass Substance Use Type: None Smoking Status (MU): Former Smoker Have You Smoked in the Last Year: No When Did the Patient Quit Smoking/Using Tobacco: 30 years ago - Immunization History Most Recent Influenza Vaccination: 07/2016 Most Recent Pneumonia Vaccination: NEVER Vaccination Up to Date: Yes Review of Systems All Other Systems Reviewed And Are Negative: Yes Constitutional: Positive: Negative Skin: Negative: Bruising Respiratory: Positive: Negative Cardiovascular: Positive: Negative Gastrointestinal: Positive: Negative Genitourinary: Positive: Negative Motor: Negative: Weakness Neurovascular: Negative: Decreased Sensation Musculoskeletal: Positive: Decreased ROM, Other: - See HPI Neurological: Positive: Negative Is Patient Immunocompromised?: No Physical Exam - Summary Physical Exam Summary: GENERAL APPEARANCE: Well developed, well nourished, alert and cooperative, and appears to be in no acute distress. NECK: Neck supple, non-tender. CARDIAC: Normal S1 and S2. No S3, S4 or murmurs. Rhythm is regular. There is no peripheral edema, cyanosis or pallor. Extremities are warm and well perfused. Capillary refill is less than 2 seconds. Peripheral pulses intact. LUNGS: Clear to auscultation without rales, rhonchi, wheezing or diminished breath sounds. ABDOMEN: Positive bowel sounds. Soft, nondistended, nontender. No guarding or rebound. No masses or hepatosplenomegally. MUSKULOSKELETAL:Normal muscular development. Normal gait. EXTREMITIES: Tenderness with palpation over the left trapezius, posterior shoulder, and over the left deltoid without gross deformity or ecchymosis. External rotation and abduction mildly limited by pain. Circulation and sensation are intact. SKIN: Skin normal color, texture and turgor with no lesions or eruptions. Triage Information Reviewed: Yes Vital Signs: Initial Vital Signs Temp 98 F 08/30/19 15:41 Pulse 106 08/30/19 15:41 Resp 16 08/30/19 15:41 BP 119/87 08/30/19 15:41 Pulse Ox 99 08/30/19 15:41 Vital Signs Reviewed: Yes Diagnostics - Radiology No standard instances Radiology Interpretation Completed By: Radiologist Summary of Radiographic Findings: Order Information: SHOULDER LEFT 2+ VWS. INDICATION: Left shoulder injury. COMPARISON: July 26, 2019 left shoulder radiograph. TECHNIQUE: 4 views of the left shoulder were obtained. FINDINGS: The soft tissues are unremarkable. The bones are osteopenic. No fracture is identified. Ghost tracks are seen in the humeral shaft. Anatomic alignment is maintained. The joint spaces are preserved. IMPRESSION: 1. OSTEOPENIA WITH NO DISPLACED FRACTURE. 2. POSTOPERATIVE CHANGES. Shoulder Course/Dx - Course Course Of Treatment: 48-year-old female presents with complaints of left shoulder pain. States earlier today at work she was descending a ramp when she slipped and tried catching herself with her left arm causing a "wrenching" of her left shoulder. Reports pain to the left trapezius, posterior and lateral shoulder which radiates into the proximal upper arm. Range of motion is limited due to pain. States she had surgery by Dr. Wagner on March 21 for a bicep tear repair and arthroscopy of the shoulder. Denies any numbness or tingling. Afebrile. Vital signs stable. Patient had tenderness with palpation over the left trapezius, posterior shoulder, and over the left deltoid without gross deformity or ecchymosis, external rotation and abduction mildly limited by pain , circulation and sensation are intact, remainder of exam was unremarkable. X- ray of the left shoulder showed no fracture or dislocation, postoperative changes unchanged from previous, and some osteopenia. Reviewed results with the patient. Recommending conservative treatment for left shoulder injury including [id number] analgesics and RICE. She was placed in a sling by the RN and encouraged to perform gentle range of motion motion exercises every 1 -2 hours while awake. She has an appointment with Dr. Wagner already scheduled for 09/01/2019 was encouraged to keep this for further evaluation and treatment. Anticipatory guidance and warning symptoms were reviewed with the patient. Verbalizes understanding of this plan of care. - Differential Dx/Diagnosis Differential Diagnosis/HQI/PQRI: Dislocation, Fracture (Closed), Rotator Cuff Injury, Sprain Provider Diagnosis: Injury of left shoulder Discharge ED - Sign-Out/Discharge Documenting (check all that apply): Patient Departure All imaging exams completed and their final reports reviewed: Yes - Discharge Plan Condition: Stable Disposition: HOME Patient Education Materials: Shoulder Sprain (ED) Referrals: Doni Saucedo MD [Primary Care Provider] - Steve Lisa MD [Medical Doctor] - (As scheduled on 09/01/2019.) Additional Instructions: The x-ray performed in the clinic today showed no evidence of a fracture. Rest the shoulder as much as possible. Use the sling provided in the clinic for the next 2 days for support. Be sure to remove your arm from the sling at lease every 2 hours while awake and perform gentle range of motion exercises. Apply ice to the affected area for 15-20 minutes at least 4 times a day to help with the pain and swelling. Take acetaminophen (Tylenol) or ibuprofen (Advil, Motrin) according to directions as needed for pain. Follow up with Dr Lisa in 2 days as scheduled. Seek immediate medical attention if you have severe pain not managed with pain medication, you lose function of the arm, develop numbness or tingling in the arm, hand, or fingers, or have any worsening of symptoms. - Billing Disposition and Condition Condition: STABLE Disposition: Home
== END 2019-08-30 18:19 | disposition home or self-care (01) ==
LOC: UCEAST 15:29
DX: S49.92XA Unspecified injury of left shoulder and upper arm, initial encounter (principal); M85.812 Other specified disorders of bone density and structure, left shoulder; I10 Essential (primary) hypertension; J45.909 Unspecified asthma, uncomplicated; Z88.0 Allergy status to penicillin; Z88.8 Allergy status to other drugs, medicaments and biological substances; Z87.891 Personal history of nicotine dependence; Z98.890 Other specified postprocedural states; W18.49XA Other slipping, tripping and stumbling without falling, initial encounter; Y92.9 Unspecified place or not applicable; Y99.0 Civilian activity done for income or pay
CPT/HCPCS: 99212; A9270-GY; G0463

== ENCOUNTER 2020-11-09 13:17 | Observation (INO) ==
[2020-11-09] MEDS ORDERED: Heparin - STEMI 5,000 UNITS/ML 1 ml VIAL IV ONE ×2 (13:25→13:27)
[2020-11-09] MEDS ORDERED: Morphine 4 MG/ML VIAL (1 ml) IV ONE (13:28)
[2020-11-09] MEDS ORDERED: Heparin 1,000 UNIT/ML 10 ml (10,000 UNITS) CATHLAB/DIALYSIS ONE (13:30)
[2020-11-09] MEDS ORDERED: fentaNYL 100 mcg/2 ml 50 MCG/ML VIAL ONE (13:30)
[2020-11-09] MEDS ORDERED: Morphine 4 MG/ML VIAL (1 ml) ONE (13:30)
[2020-11-09] MEDS ORDERED: VERAPAMIL 2.5 MG/ML 2 ML VIAL ** 5 mg/2 ml ONE (13:30)
[2020-11-09] MEDS ORDERED: Midazolam 5 mg/5 ml VIAL 1 mg/ml 5 ml VIAL (5 mg) ONE (13:30)
[2020-11-09] MEDS ORDERED: nitroGLYCERIN DRIP 25,000 MCG/250 ML BTL ONE (13:31)
[2020-11-09] MEDS ORDERED: Iohexol 350 (CONTRAST) 200 ML MDV IV ONE (13:31)
[2020-11-09] MEDS ORDERED: Lidocaine 1% VIAL 10 MG/ML VIAL ONE (13:31)
[2020-11-09] MEDS ORDERED: Heparin 2 UNITS/ML 1000 mls 2,000 ML IV ONE (13:31)
[2020-11-09 13:36] LABS: ABS Eosinophils 0.2 10^3/ul (0-0.6); ABS Lymphocytes 2.5 10^3/ul (1.0-4.8); ABS Monocytes 0.5 10^3/ul (0-0.8); ABS Neutrophils 3.2 10^3/ul (1.5-7.7); Eosinophil % 2.4 %; Hematocrit 39 % (35-47); Hemoglobin 13.3 g/dL (12.0-16.0); Lymphocyte % 38.6 %; Mean Corpuscular HGB Conc 34 g/dL (31-36); Mean Corpuscular Hemoglobin 31 pg (27-31); Mean Corpuscular Volume 91 fL (80-97); Mean Platelet Volume 7.8 fL (7.4-10.4); Platelet Count 259 10^3/uL (150-450); Red Blood Count 4.27 10^6 /uL (3.70-4.87); Red Cell Distribution Width 12 % (10-15); White Blood Count 6.4 10^3/uL (3.5-10.8)
[2020-11-09 13:44] LABS: Activated Partial Thrombo Time 29.4 seconds (26.0-38.0); INR 0.94 (0.82-1.09)
[2020-11-09 14:25] LABS: Albumin 4.6 g/dL (3.2-5.2); Calcium 10.1 mg/dL (8.6-10.3); Potassium 3.3 mmol/L (3.5-5.0); Total Bilirubin 0.8 mg/dL (0.2-1.0)
[2020-11-09 14:31] LABS: Albumin/Globulin Ratio 1.7 (1-3); BUN/Creatinine Ratio 16.3 (8-20); EGFR African American 77.9 (>60); EGFR Non-African American 64.4 (>60); Globulin 2.7 g/dL (2-4); Total Protein 7.3 g/dL (6.4-8.9)
[2020-11-09] MEDS ORDERED: Lactated Ringers 1000 ml BAG 1,000 ML IV ONE (16:05)
[2020-11-09] MEDS ORDERED: Potassium Chlor 20 meq TAB.ER PO ONE (16:08)
[2020-11-09] MEDS ORDERED: Albuterol HFA INHALER 8 gm MDI INH PRN (16:43)
[2020-11-10 04:48] LABS: ABS Eosinophils 0.1 10^3/ul (0-0.6); ABS Lymphocytes 1.4 10^3/ul (1.0-4.8); ABS Monocytes 0.5 10^3/ul (0-0.8); ABS Neutrophils 4.3 10^3/ul (1.5-7.7); Eosinophil % 2.3 %; Hematocrit 33 % (35-47); Hemoglobin 11.2 g/dL (12.0-16.0); Lymphocyte % 22.1 %; Mean Corpuscular HGB Conc 34 g/dL (31-36); Mean Corpuscular Hemoglobin 32 pg (27-31); Mean Corpuscular Volume 93 fL (80-97); Mean Platelet Volume 8.1 fL (7.4-10.4); Nucleated Red Blood Cells % 0.1; Platelet Count 184 10^3/uL (150-450); Red Blood Count 3.52 10^6 /uL (3.70-4.87); Red Cell Distribution Width 13 % (10-15); White Blood Count 6.3 10^3/uL (3.5-10.8)
[2020-11-10 05:01] LABS: BUN/Creatinine Ratio 18.7 (8-20); Calcium 8.5 mg/dL (8.6-10.3); EGFR African American 98.6 (>60); EGFR Non-African American 81.5 (>60); Magnesium 1.9 mg/dL (1.9-2.7); Potassium 3.9 mmol/L (3.5-5.0)
[2020-11-10] MEDS ORDERED: Magnesium Sulfate IV 1GM/100ML 1 GM/100 ML BAG IV ONE (06:59)
[2020-11-10] MEDS ORDERED: Potassium Chlor 20 meq TAB.ER PO ONE (07:00)
[2020-11-10] MEDS ORDERED: Al Hydrox/Mg Hydrox/Simet LIQ 30 ML UDC PO PRN (08:49)
[2020-11-10] MEDS ORDERED: Cholecalciferol (VIT D3) 1,000 unit TAB PO SCH (09:00)
[2020-11-10] MEDS ORDERED: Lidocaine PATCH 5% PATCH TRANSDERM SCH (10:00)
[2020-11-10 11:13] LABS: ABS Eosinophils 0.2 10^3/ul (0-0.6); ABS Lymphocytes 1.7 10^3/ul (1.0-4.8); ABS Monocytes 0.4 10^3/ul (0-0.8); ABS Neutrophils 4.1 10^3/ul (1.5-7.7); Eosinophil % 2.5 %; Hematocrit 33 % (35-47); Hemoglobin 11.2 g/dL (12.0-16.0); Lymphocyte % 26.4 %; Mean Corpuscular HGB Conc 34 g/dL (31-36); Mean Corpuscular Hemoglobin 31 pg (27-31); Mean Corpuscular Volume 91 fL (80-97); Mean Platelet Volume 8.2 fL (7.4-10.4); Platelet Count 194 10^3/uL (150-450); Red Blood Count 3.56 10^6 /uL (3.70-4.87); Red Cell Distribution Width 13 % (10-15); White Blood Count 6.3 10^3/uL (3.5-10.8)
[2020-11-10 12:50] VITALS: BP 134/79
[2020-11-10] MEDS ORDERED: Heparin 5000 UNITS/ML 1 mL VIAL SUBCUT SCH (14:00)
[2020-11-10] MEDS ORDERED: Lidocaine Patch REMOVE PATCH PATCH OFF SCH (21:00)
== END 2020-11-10 13:15 | disposition home or self-care (01) ==
LOC: ED 13:17 → CHICATH 13:41 → ICU 15:04 → INTOOBSV 15:04 → ICU 15:09

== ENCOUNTER 2024-05-23 15:45 | Inpatient (IN) ==
[2024-05-23 16:22] LABS: ABS Eosinophils 0.2 10^3/uL (0.0-0.5); ABS Lymphocytes 2.2 10^3/uL (1.0-4.8); ABS Monocytes 0.5 10^3/uL (0.0-0.9); ABS Neutrophils 3.1 10^3/uL (1.5-7.6); Eosinophil % 2.6 %; Hemoglobin 13.1 g/dL (11.5-14.3); Lymphocyte % 37.3 %; Mean Corpuscular Hgb Conc 34.6 g/dL (31-36); Mean Corpuscular Volume 89.8 fL (80-97); Mean Platelet Volume 8.2 fL (7.5-11.2); Platelet Count 223 10^3/uL (150-450); Red Blood Count 4.23 10^6/uL (3.63-4.92); Red Cell Distribution Width 12.7 % (12-17)
[2024-05-23 17:09] LABS: Albumin 4.8 g/dL (3.2-5.2); Albumin/Globulin Ratio 2.2 (1-3); Calcium 9.5 mg/dL (8.6-10.3); Creatinine, Serum 0.9 mg/dL (0.51-0.95); Globulin 2.2 g/dL (2-4); Potassium 3.4 mmol/L (3.5-5.0); Total Bilirubin 0.7 mg/dL (0.2-1.0); eGFR CKD-EPI 75.5 (>60)
[2024-05-23 17:49] LABS: High Sensitivity Troponin 1 Hr 319 pg/mL (<15)
[2024-05-23] MEDS ORDERED: Heparin - STEMI 5,000 UNITS/ML 1 ml VIAL IV ONE (18:43)
[2024-05-23] MEDS ORDERED: Morphine 2 MG/ML SYRINGE IV PRN (20:06)
[2024-05-23] MEDS: Heparin 5000 UNITS/ML 1 mL VIAL IV SCH (20:32)
[2024-05-23] MEDS: Heparin DRIP 25,000 UNITS BAG 25,000 UNITS/250 ML BAG IV SCH (20:34)
[2024-05-23 20:35] LABS: ABS Eosinophils 0.1 10^3/uL (0.0-0.5); ABS Lymphocytes 1.7 10^3/uL (1.0-4.8); ABS Monocytes 0.5 10^3/uL (0.0-0.9); ABS Neutrophils 5.5 10^3/uL (1.5-7.6); Eosinophil % 0.7 %; Hematocrit 35.6 % (35-45); Hemoglobin 12.5 g/dL (11.5-14.3); Lymphocyte % 22.2 %; Mean Corpuscular Hemoglobin 31.4 pg (27-33); Mean Corpuscular Hgb Conc 35.2 g/dL (31-36); Mean Corpuscular Volume 89.2 fL (80-97); Mean Platelet Volume 7.8 fL (7.5-11.2); Nucleated Red Blood Cells % 0.1 %/100WBC (0.0-0.8); Platelet Count 224 10^3/uL (150-450); Red Blood Count 3.99 10^6/uL (3.63-4.92); Red Cell Distribution Width 12.7 % (12-17); White Blood Count 7.9 10^3/uL (3.8-11.8)
[2024-05-23] MEDS: Iohexol 350 (CONTRAST) 500 ML MDV IV ONE (20:53)
[2024-05-23 21:01] LABS: High Sensitivity Troponin 3 Hr 17183 pg/mL (<15)
[2024-05-23 21:07] LABS: Creatinine, Serum 0.79 mg/dL (0.51-0.95); eGFR CKD-EPI 88.3 (>60)
[2024-05-23] MEDS ORDERED: Albuterol HFA INHALER 8 gm MDI INH PRN (21:53)
[2024-05-23] MEDS: Potassium Chlor 20 meq TAB.ER PO ONE (22:29)
[2024-05-24 05:46] LABS: ABS Eosinophils 0.2 10^3/uL (0.0-0.5); ABS Lymphocytes 2.2 10^3/uL (1.0-4.8); ABS Monocytes 0.5 10^3/uL (0.0-0.9); ABS Neutrophils 3.6 10^3/uL (1.5-7.6); Eosinophil % 2.8 %; Hematocrit 36.4 % (35-45); Hemoglobin 12.6 g/dL (11.5-14.3); Lymphocyte % 33.2 %; Mean Corpuscular Hemoglobin 31.3 pg (27-33); Mean Corpuscular Hgb Conc 34.7 g/dL (31-36); Mean Corpuscular Volume 90.3 fL (80-97); Mean Platelet Volume 7.9 fL (7.5-11.2); Nucleated Red Blood Cells % 0.1 %/100WBC (0.0-0.8); Platelet Count 201 10^3/uL (150-450); Red Blood Count 4.03 10^6/uL (3.63-4.92); Red Cell Distribution Width 13.2 % (12-17); White Blood Count 6.5 10^3/uL (3.8-11.8)
[2024-05-24 06:17] LABS: High Sens Troponin Baseline >24000 pg/mL (<15)
[2024-05-24 06:27] LABS: Anion Gap 5 mmol/L (2-16); Blood Urea Nitrogen 16 mg/dL (6-24); CO2 Carbon Dioxide 27 mmol/L (22-32); Chloride 107 mmol/L (101-111); Creatinine, Serum 0.72 mg/dL (0.51-0.95); Glucose 99 mg/dL (70-100); Potassium 3.9 mmol/L (3.5-5.0); Sodium 139 mmol/L (135-145); eGFR CKD-EPI 98.7 (>60)
[2024-05-24] MEDS ORDERED: fentaNYL 100 mcg/2 ml 50 MCG/ML VIAL ONE (07:33)
[2024-05-24] MEDS ORDERED: Heparin 1,000 UNIT/ML 10 ml (10,000 UNITS) CATHLAB/DIALYSIS ONE (07:33)
[2024-05-24] MEDS ORDERED: Heparin 2 UNITS/ML 1000 mls 2,000 ML IV ONE (07:33)
[2024-05-24] MEDS ORDERED: Midazolam 5 mg/5 ml VIAL 1 mg/ml 5 ml VIAL (5 mg) ONE (07:33)
[2024-05-24] MEDS ORDERED: Iohexol 350 (CONTRAST) 200 ML MDV IV ONE (07:34)
[2024-05-24] MEDS ORDERED: nitroGLYCERIN DRIP 25,000 MCG/250 ML BTL ONE (07:34)
[2024-05-24] MEDS ORDERED: Lidocaine 1% MPF 5 ML VIAL ONE (07:34)
[2024-05-24] MEDS ORDERED: Iohexol 350 (CONTRAST) 100 ML PAK IV ONE (07:34)
[2024-05-24] MEDS: Midazolam 10 mg/10 ml VIAL 1 mg/ml 10 ml VIAL (10 mg) IV SLOW PU ONE (08:45)
[2024-05-24] MEDS: NS 0.9% 1000 ml BAG 1,000 ML IV SCH (08:45)
[2024-05-24] MEDS: fentaNYL 100 mcg/2 ml 50 MCG/ML VIAL IV SLOW PU ONE (08:45)
[2024-05-24] MEDS ORDERED: Sulfur Hexaflouride MICROSPHR 25 MG VIAL IV PRN (09:51)
[2024-05-24 16:30] LABS: Activated Partial Thrombo Time 50.2 seconds (26.0-38.0); INR 1.02 (0.85-1.14)
[2024-05-24] MEDS: EVOLOCUMAB 140 MG/ML SUBCUT SCH (18:29)
[2024-05-24] MEDS: Lidocaine PATCH 5% PATCH TRANSDERM PRN (21:08)
[2024-05-25 06:39] LABS: ABS Basophils 0.1 10^3/uL (0.0-0.1); ABS Eosinophils 0.2 10^3/uL (0.0-0.5); ABS Monocytes 0.4 10^3/uL (0.0-0.9); Eosinophil % 3.2 %; Hematocrit 41.6 % (35-45); Hemoglobin 14.3 g/dL (11.5-14.3); Lymphocyte % 30.2 %; Mean Corpuscular Hemoglobin 30.7 pg (27-33); Mean Corpuscular Hgb Conc 34.4 g/dL (31-36); Mean Corpuscular Volume 89.4 fL (80-97); Mean Platelet Volume 8.1 fL (7.5-11.2); Platelet Count 227 10^3/uL (150-450); Red Blood Count 4.65 10^6/uL (3.63-4.92); Red Cell Distribution Width 12.7 % (12-17); White Blood Count 6.7 10^3/uL (3.8-11.8)
[2024-05-25 07:07] LABS: Creatinine, Serum 0.79 mg/dL (0.51-0.95); eGFR CKD-EPI 88.3 (>60)
[2024-05-25] MEDS: Fluticasone NASAL SPRAY 50MCG 16 gm SPRAY BTL BOTH NARES SCH (15:27)
[2024-05-25] MEDS: Polyethylene Glycol 3350 17 GM PACKET PO SCH (21:43)
[2024-05-26 06:20] LABS: ABS Eosinophils 0.2 10^3/uL (0.0-0.5); ABS Lymphocytes 1.9 10^3/uL (1.0-4.8); ABS Monocytes 0.5 10^3/uL (0.0-0.9); ABS Neutrophils 2.6 10^3/uL (1.5-7.6); ABS Nucleated RBC 0.01 10^3/ul; Eosinophil % 4.1 %; Hematocrit 38.4 % (35-45); Hemoglobin 13.4 g/dL (11.5-14.3); Lymphocyte % 36.5 %; Mean Corpuscular Hgb Conc 34.8 g/dL (31-36); Mean Corpuscular Volume 89.2 fL (80-97); Mean Platelet Volume 8.2 fL (7.5-11.2); Nucleated Red Blood Cells % 0.1 %/100WBC (0.0-0.8); Platelet Count 202 10^3/uL (150-450); Red Blood Count 4.31 10^6/uL (3.63-4.92); Red Cell Distribution Width 12.9 % (12-17); White Blood Count 5.2 10^3/uL (3.8-11.8)
[2024-05-26] MEDS ORDERED: Sulfur Hexaflouride MICROSPHR 25 MG VIAL IV PRN (09:25)
[2024-05-26] MEDS: Calcium Carb (TUMS) 500 mg CHEW TAB PO PRN (10:41)
[2024-05-26 11:30] LABS: High Sensitivity Troponin 1 Hr 3388 pg/mL (<15)
[2024-05-26 17:16] LABS: Erythrocyte Sed Rate 3 mm/Hr (0-29)
[2024-05-27 06:22] LABS: Calcium 9.7 mg/dL (8.6-10.3); Creatinine, Serum 0.91 mg/dL (0.51-0.95); Potassium 4.2 mmol/L (3.5-5.0); eGFR CKD-EPI 74.5 (>60)
[2024-05-27 09:45] VITALS: BP 112/71
== END 2024-05-27 11:54 | disposition home or self-care (01) | DRG 190 ==
LOC: ED 15:45 → EDHOLD 21:49 → AA 05-24 07:15 → MEDTELE 05-24 08:32
PROVIDERS: ADMIT Hospitalist; ATTEND Internal Medicine